=== PATIENT | female | born 1940 | race Caucasian/White ===

== ENCOUNTER 2017-07-15 07:02 | Day surgery (SDC) | payer MEDICARE, OTHER ==
[2017-07-14 12:13] VITALS: BMI 30.4
[2017-07-15 08:33] VITALS: BP 179/75; TEMP 97.7
--- NOTE | 2017-07-15 09:20 | RAD ---
LUMBAR SPINE MYELOGRAM: Date: 07/15/17 HISTORY: Lumbar radiculopathy, spondylosis. COMPARISON: Myelogram dated 02/07/15. FINDINGS/TECHNIQUE: The patient was brought to the fluoroscopy suite. All questions were answered. The patient's back was prepped and draped in the normal sterile fashion. Informed consent was obtained. Timeout was perform ed. 2 mL of buffered lidocaine was instilled into the superficial soft tissues for local anesthesia. Usin g a 22 gauge spinal needle, the thecal sac was accessed. 11 mL of Isovue-200M was instilled into the thecal sac. The patient tolerated the procedure well and without complication. IMPRESSION: Technically successful lumbar spine myelogram. POS: [facility]
--- NOTE | 2017-07-15 10:04 | CT ---
CT LUMBAR SPINE WITH CONTRAST: HISTORY: Radiculopathy. Right-sided pain. COMPARISON: CT myelogram 02/07/15. FINDINGS: The lung bases are clear. There are nonobstructing calculi within the right superior renal collectin g system. The left kidney is atrophic. Multiple right-sided renal cysts. Moderate atherosclerotic plaque of the aorta without aneurysmal dilatation. Calcified granulomas of the spleen are present. No retroperitoneal adenopathy. No acute fracture or malalignment of the lumbar spine. There is posterior spinal fusion hardware at L5-S1 without evidence of hardware complication. There is right hemidiskectomy changes at this level with adequate position of the spacer. Levels are as follows: T12-L1: Moderate hypertrophic facet changes. Circumferential disk bulge. The spinal canal is narro wed to approximately 1 cm. Moderate bilateral neural foraminal narrowing. L1-L2: Moderate circumferential disk bulge. There is narrowing of the spinal canal of approximately 6 mm. Hypertrophic facet changes. There is also ligamentum flavum hypertrophy. Moderate bilateral neural foraminal narrowing. L3-4: Mild circumferential disk bulge and degenerative disk space height loss. Advanced hypertrophi c facet changes. Mild ligamentum flavum hypertrophy. The spinal canal is not narrowed. There is mo derate to severe right and moderate to severe left neural foraminal narrowing. L4-5: There are laminectomy changes. Circumferential disk bulge. The spinal canal is not significa ntly narrowed. Hypertrophic facet changes cause moderate bilateral neural foraminal narrowing. L5-S1: Posterior disk-osteophyte complex on the left and right causes moderate bilateral neural fora elias narrowing. IMPRESSION: 1. Moderate to severe spondylosis as described above. No acute fracture or malalignment or signific ant listhesis. 2. Atrophic left kidney. 3. Right side renal calculi. POS: [facility]
[2017-07-15] MEDS ORDERED: Iopamidol-M 200 41% 20 ML VIAL ONE (16:30)
== END 2017-07-15 10:05 | disposition home or self-care (01) ==
LOC: RAD 07:02
PROVIDERS: ATTEND Neurological Surgery
PROC: B00B1ZZ Plain Radiography of Spinal Cord using Low Osmolar Contrast (ICD-10-PCS; principal; 2017-07-15)
DX: M54.16 Radiculopathy, lumbar region (principal); M47.896 Other spondylosis, lumbar region
CPT/HCPCS: 62304; 72132

== ENCOUNTER 2017-09-24 03:50 | Inpatient (IN) | payer MEDICARE, OTHER ==
[2017-09-24] MEDS ORDERED: Metoprolol Tartrate 5 MG/5 ML VIAL ONE (04:46)
[2017-09-24] MEDS ORDERED: Ondansetron HCl/PF 4 MG/2 ML Vial IVP PRN ×2 (06:38→07:31)
[2017-09-24] MEDS ORDERED: Ondansetron ODT 4 MG TAB SL PRN (06:38)
[2017-09-24] MEDS ORDERED: Sodium Chloride 0.9% 1,000 ML IV SCH (06:38)
[2017-09-24] MEDS ORDERED: Acetaminophen 325 MG TAB PO PRN (07:31)
[2017-09-24] MEDS ORDERED: Calcium Carbonate 500 MG ChewTAB PO PRN (07:31)
[2017-09-24] MEDS ORDERED: Benzonatate 100 MG CAP PO PRN (07:31)
[2017-09-24] MEDS ORDERED: Milk Of Magnesia 30 ML UDCUP PO PRN (07:31)
[2017-09-24] MEDS ORDERED: Senokot 8.6 MG TAB PO PRN (07:31)
[2017-09-24] MEDS ORDERED: Bisacodyl 5 MG TAB PO PRN ×2 (07:31)
[2017-09-24] MEDS ORDERED: hydrALAZINE 20 MG/ML VIAL SLOW IVP PRN (07:31)
[2017-09-24] MEDS ORDERED: Mag-Al 1200 mg/1200 mg/30 ML UDCUP PO PRN (07:31)
[2017-09-24] MEDS ORDERED: cloNIDine 0.1 MG TAB PO PRN (07:31)
[2017-09-24] MEDS ORDERED: Diabetic Tussin 200 MG/10 ML UDCUP PO PRN (07:31)
[2017-09-24] MEDS ORDERED: Dextrose 50% Abboject 50 ML SYRINGE SLOW IVP PRN (07:36)
[2017-09-24] MEDS ORDERED: Dextrose 5% in Water 1,000 ML IV PRN (07:36)
[2017-09-24] MEDS ORDERED: HumaLOG 300 UNITS/3 ML VIAL SC PRN ×2 (07:36)
[2017-09-24] MEDS ORDERED: Non-Formulary Item 1 EACH (Esomeprazole Magnesium [Nexium] 20 MG) PO PRN (07:40)
[2017-09-24] MEDS ORDERED: Triamcinolone 0.1% Cream 30 GM TUBE TOP PRN (07:40)
[2017-09-24 07:55] LABS: Troponin I 0.373 ng/mL (< 0.028)
[2017-09-24] MEDS ORDERED: Aspirin 325 MG TAB PO SCH ×2 (08:00→09:00)
[2017-09-24] MEDS: Gabapentin 300 MG CAP PO SCH ×3 (08:49→20:00)
[2017-09-24] MEDS: Famotidine 20 MG TAB PO SCH ×2 (08:49→19:59)
[2017-09-24] MEDS: TROSPIUM 20 MG TABLET PO SCH ×2 (08:49→22:21)
[2017-09-24] MEDS: Carvedilol 3.125 MG TAB PO SCH ×2 (08:49→16:42)
[2017-09-24] MEDS: Multivit, Therapeutic 1 TAB PO SCH (08:49)
[2017-09-24] MEDS: Fenofibrate 48 MG TAB PO SCH (08:49)
[2017-09-24] MEDS: Enoxaparin Sodium 100 MG/ML SYRINGE SC SCH ×2 (08:50→20:00)
[2017-09-24] MEDS: Alogliptin 25 MG TAB PO SCH (08:50)
[2017-09-24] MEDS: Glimepiride 4 MG TAB PO SCH (08:50)
[2017-09-24] MEDS: Sodium Chloride 0.9% 1,000 ML IV SCH ×2 (08:51→20:04)
[2017-09-24] MEDS ORDERED: Non-Formulary Item 1 EACH (Multivitamin [Multivitamins] 1 CAP) PO SCH (09:00)
[2017-09-24] MEDS ORDERED: Enoxaparin Sodium 40 MG/0.4 ML SYRINGE SC SCH ×2 (09:00)
[2017-09-24] MEDS ORDERED: Tolterodine Tartrate LA 4 MG CAP PO SCH (09:00)
[2017-09-24 09:18] LABS: Bilirubin Negative (Negative); Blood, Urine Negative (Negative); Clarity CLOUDY (Clear); Glucose, Urine (Dipstick) Negative (Negative); Leukocyte Small (Negative); Nitrite Positive (Negative); Protein, Urine (Dipstick) Negative (Neg-Trace); Specific Gravity, Urine 1.015 (1.002-1.036)
[2017-09-24 09:20] LABS: Bacteria/HPF 3+ HPF (None Seen); Hyaline Casts/LPF 0-3 HYALINE CAST LPF (0-3 Hyaline); RBC/HPF 0-3 HPF (0-3); Squamous Epithelial None Seen HPF (0-3); WBC/HPF 21-50 HPF (0-3)
--- NOTE | 2017-09-24 12:11 | HP ---
DATE OF ADMISSION: 09/24/2017 PRIMARY CARE PHYSICIAN: Jamal Doll M.D. at [facility]. CHIEF COMPLAINT: Chest pain. HISTORY OF PRESENTING ILLNESS: Ms. Blair is a very pleasant 77-year-old female with past medical history of hypertension, diabetes mellitus, dyslipidemia, and history of CVA with residual left-sided weakness, who presented to the emergency room in [place] [facility] with above-mentioned compla int. History is mainly obtained by the patient herself and electronic medical records have been revi ewed in detail. The patient reports that she does not have any cardiac history as far as she remembers. She was woke n up last night from sleep around 2:00 a.m. with a sharp pain which felt like an elephant sitting on her chest. This proceeded for about 30 minutes until she presented to the emergency room and was giv en medications for same. The pain did move across her chest, but she had no arm or jaw claudication or paraesthesias with that. She did get short of breath when walking to the room of her daughter to wake her up, but then she reports that she is always easily winded with walk. She denies any nausea or dizziness. She denies any other recent illnesses. She denies any orthopnea, PND or leg swelling. She normally takes 81 mg of aspirin on a daily basis. She does report that lately for the last 6 weeks or so, her blood pressure is very difficult to contr ol and has been running as high as systolic 200s. Normally, she is 140-160 for systolic blood pressu re. She was recently started on losartan by primary care physician in addition to the Norvasc that s he normally takes. Upon presentation to the emergency room in [place], she was hemodynamically stable, saturating 93% o n room air, heart rate 82 and blood pressure on presentation 163/65. She underwent general evaluatio n. Her EKG showed ST depression in leads V3, V4, V5 and V6. Chest x-ray was rather unremarkable. H er cardiac enzymes were checked and she had mild troponin elevation of 0.157 with mild elevation of B UN and creatinine as well. She was given one dose of therapeutic Lovenox at 1 mg/kg as well as nitro glycerin and aspirin and was transferred to our facility for further evaluation. In our emergency room, decision was made to admit her for possible unstable angina and non-ST elevati on MT. Her repeat troponin in our facility was bumped up from 0.157-0.270. She also received 1 dose of IV Lopressor in our emergency room. Currently, she is symptom free and is actually eager to go h ome. Her repeat troponin is bumped up again to 0.373. PAST MEDICAL HISTORY: 1. Hypertension. 2. Dyslipidemia. 3. Diabetes mellitus type 2. 4. Chronic bronchitis. 5. Chronic back pain. 6. Chronic dizziness. 7. History of cerebrovascular accident with residual left-sided weakness. 8. Chronic kidney disease stage 3. She follows up at [facility] Nephrology Department. PAST SURGICAL HISTORY: 1. Cataract surgery. 2. Multiple back surgeries. 3. Dilatation and curettage. 4. 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 ALLERGIES: Include TUSSIN. FAMILY HISTORY: Significant for multiple family members with myocardial infarction. Her father and both grandfathers have suffered massive heart attacks. Diabetes in her brother. SOCIAL HISTORY: She lives with the family. No history of drug, tobacco or alcohol abuse. CURRENT MEDICATIONS: Are as follows; Tylenol with codeine 30 mg p.o. b.i.d. p.r.n., aspirin 162 mg p .o. b.i.d., Detrol-LA 4 mg daily, Lasix 20 mg daily, gabapentin 600 t.i.d., glimepiride 8 mg daily, n abumetone 500 mg p.o. b.i.d., metformin 500 mg daily, Januvia 100 mg daily, amlodipine 10 mg daily, p otassium chloride 10 mEq daily, Nexium 20 mg as needed, TriCor 40 mg daily, triamcinolone cream as ne eded, Zyrtec as needed and losartan 50 mg daily. REVIEW OF SYSTEMS: The following complete review of systems was negative, unless otherwise mentioned in the HPI or below: Constitutional: Weight loss or gain, ability to conduct usual activities. Skin: Rash, itching. Eyes: Double vision, pain. ENT/Mouth: Nose bleeding, neck stiffness, pain, tenderness. Cardiovascular: Palpitations, dyspnea on exertion, orthopnea. Respiratory: Shortness of breath, wheezing, cough, hemoptysis, fever or night sweats. Gastrointestinal: Poor appetite, abdominal pain, heartburn, nausea, vomiting, constipation, or diarr hea. Genitourinary: Urgency, frequency, dysuria, nocturia. Musculoskeletal: Pain, swelling. Neurologic/Psychiatric: Anxiety, depression. Allergy/Immunologic: Skin rash, bleeding tendency. A 12-point review of systems is done and it is negative except those mentioned in the history and phy sical. LABORATORY DATA AND IMAGING DATA: Her CBC is rather unremarkable. Her PT, PTT and INR are unremarka ble. Serum chemistry shows BUN of 28 and creatinine of 1.80, which is up from her baseline about 4 y ears ago of 1.31. BNP is 119. Cardiac enzymes, the highest so far is 0.373. Her blood sugar is 120 . Urinalysis done just now shows positive nitrite, leukocyte esterase, wbc's 21-50 and +3 bacteria. Chest x-ray by my review has no evidence to suggest pleural effusion or pulmonary edema or infiltrat es. A 12-lead EKG was reviewed and EKG done in the emergency room outside shows ST depression in olman ds V3 through V6. Repeat EKG done in our emergency room shows normal sinus rhythm with frequent PVCs . PHYSICAL EXAMINATION: VITAL SIGNS: Most recent vital signs; temperature 97.8, pulse of 86, respirations 22, saturating 97% on room air, blood pressure 135/69. GENERAL: No acute distress, awake, alert, oriented x3. HEENT: Mucous membrane is moist and pink. No oropharyngeal exudate or erythema. Head is normocepha lic, atraumatic. Pupils are equal, reactive to light and accommodation. Extraocular movement intact . NECK: Supple without any lymphadenopathy, JVD or bruit. CHEST: Clear to auscultation without any wheezing, rales or rhonchi. CARDIOVASCULAR: Rhythm is regular without any murmurs, rubs or gallops. ABDOMEN: Soft, nontender, nondistended with positive bowel sounds, obese. EXTREMITIES: No cyanosis, clubbing, or edema. NEUROLOGIC: Examination is nonfocal. SKIN: Free of any rashes or bruises. Feel warm and dry to touch. PSYCHIATRIC: Normal affect. IMPRESSION AND PLAN: 1. Non-ST elevation myocardial infarction. Her symptoms are consistent with the same and ACS. At t his time, she will be continued on full dose of therapeutic Lovenox 1 mg/kg b.i.d. and low dose aspir in. She will be started on beta allison in the form of carvedilol and we will titrate the dosages. We will continue her ARB. We will get a transthoracic echocardiogram and request consultations from Cardiology as well. Check a lipid panel and continue TriCor as well. 2. Acute on chronic kidney disease, mild elevation in her creatinine from baseline, but the baseline is from 4 years ago. At this time we will rehydrate her with gentle IV fluids and monitor renal fun ction. Avoid any nephrotoxic medications. 3. Urinary tract infection. Urine will be sent for culture and we will start her on empiric IV anti biotics in the form of levofloxacin. At this time, no signs or symptoms to suggest sepsis. 4. Diabetes mellitus type 2, currently well controlled. We will start her on insulin sliding scale. Hold metformin to avoid any further renal injury. Restart home medications if the blood sugar francis ins stable. 5. History of hypertension. At this time, she will be continued on losartan and we will start her o n beta-blockers for cardioprotective effect. We will discontinue the amlodipine for now and titrate the carvedilol dose up if necessary to control her blood pressure. 6. History of cerebrovascular accident. 7. Code status: FULL CODE discussed with the patient. 8. Deep venous thrombosis and gastrointestinal prophylaxis on p.r.n. medications. DISPOSITION: Ms. Blair is currently being admitted to the hospital for non-ST elevation MT and li mahesh unstable angina. Further management will depend upon her clinical course, but estimated length of stay at this time is at least 2-3 midnights.
[2017-09-24] MEDS ORDERED: Communication Order-Pharmacy FS SCH (12:30)
--- NOTE | 2017-09-24 12:39 | CON ---
DATE OF CONSULTATION: 09/24/2017 REASON FOR CONSULTATION: Elevated troponin and unstable angina. HISTORY OF PRESENT ILLNESS: Ms. Blair is a very pleasant 77-year-old woman who does not have a ca rdiologist. She states she awoke from sleep with acute onset chest pain. There was a heaviness on h er chest. It lasted for an hour. She proceeded to the emergency room in [place] where her symptoms improved on medical therapy. She is currently chest pain free. She did have a trip planned to [place] this morning. 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 SOCIAL HISTORY: She quit all tobacco products in the . No alcohol use. HOME MEDICATIONS: Include Zyrtec, aspirin, Detrol, glipizide, Norvasc, TriCor, metformin, Lasix, thomas apentin, Januvia, and potassium.. REVIEW OF SYSTEMS: Ten-point review of systems is reviewed and as above, otherwise negative. PHYSICAL EXAMINATION: VITAL SIGNS: Blood pressure 135/69, pulse 86, temperature 97.8. GENERAL: Patient is a pleasant female who is in no acute distress. The patient appears her stated a ge. NEUROLOGIC: The patient is alert and oriented times 3 with no focal neurologic deficits. HEENT: Sclerae without icterus. Mouth has moist mucous membranes with normal pallor. NECK: No JVD. Carotid upstroke brisk. No bruits bilaterally. LUNGS: Clear to auscultation with unlabored respirations. BACK: No scoliosis or kyphosis. CARDIAC: Regular rate and rhythm with normal S1 and S2. No S3 or S4 noted. No significant rubs, murmurs, thrills, or gallops noted throughout the precordium. PMI is not displaced. There is no parasternal heave. ABDOMEN: Soft, nontender, nondistended. No peritoneal signs present. No hepatosplenomegaly. No abnormal striae. EXTREMITIES: 2+ femoral and 2+ dorsalis pedis pulses. No cyanosis, clubbing, or edema. SKIN: No gross abnormalities. PERTINENT LABS: Peak troponin 0.373. BNP of 119. EKG normal sinus rhythm, nonspecific ST-T wave ch anges. IMPRESSION: 1. Unstable angina. 2. Diabetes mellitus. 3. Hypertension. 4. Hyperlipidemia. RECOMMENDATIONS: Ms. Blair has multiple risks for underlying coronary disease. Her symptoms sugg est unstable angina. Her EKG is nonspecific. We would recommend coronary angiography plus PCI. I d iscussed the procedure in full detail with Ms. Blair risks of the procedure include but are not li mited. I discussed the procedure in full detail with the patient. The risks of the procedure were a lso discussed. The risks of the procedure include but are not limited to the following: , stro ke, DC, need for emergency surgery, loss of limb, bleeding, and infection, as well as a reaction to t he dye causing kidney failure and needing long-term dialysis. I also discussed the risks of PCI to i nclude all of the above including coronary dissection and perforation in addition to acute stent thro mbosis and restenosis. All questions about the procedure were answered. Given the above, the patien alin agreed to proceed with coronary angiography and possible PCI. Also discussed drug-coated versus no ndrug stent placement. She does receive back injections regularly. We will proceed with a bare-meta l stent if needed. Further recommendations pending the above.
[2017-09-24] MEDS ORDERED: Aspirin 81 mg Enteric Coated Tablet ONE (15:07)
[2017-09-24] MEDS: Aspirin 81 mg Enteric Coated Tablet PO SCH (15:10)
[2017-09-24] MEDS: Nitroglycerin 0.4 MG TAB (25 Tab Bottle) SL PRN ×2 (19:54→20:01)
[2017-09-25] MEDS: Nitroglycerin 0.4 MG TAB (25 Tab Bottle) SL PRN ×5 (02:02→12:59)
[2017-09-25 04:39] LABS: %Neutrophils 67.7 % (42.0-75.0); Hemoglobin 11.8 g/dL (12.0-16.0); Mean Corpuscular HGB CONC 34.6 g/dL (32.0-36.0); Mean Corpuscular Hemoglobin 31.6 pg (27.0-31.0); Mean Corpuscular Volume 91.4 fL (78.0-98.0); Mean Platelet Volume 7.6 fL (7.4-10.4); Platelet Count 222 thou/uL (130-400); RBC Distribution Width 11.7 % (11.5-14.5); Red Blood Cell (RBC) Count 3.73 mill/uL (4.20-5.40); White Blood Cell (WBC) Count 8.2 thou/uL (4.8-10.8)
[2017-09-25 04:40] LABS: #Eosinphils 0.4 thou/uL (0.0-0.7); #Lymphocytes 1.5 thou/uL (1.20-3.40); #Monocytes 0.7 thou/uL (0.11-0.59); #Neutrophils 5.6 thou/uL (1.40-6.50); %Basophils 0.6 % (0.0-1.0); %Eosinophils 4.3 % (0.0-10.0); %Lymphocytes 18.5 % (21.0-51.0); %Monocytes 8.9 % (0.0-10.0)
[2017-09-25 05:01] LABS: Anion Gap 13 mmol/L (10-20); BUN (Urea Nitrogen) 23 mg/dL (9.8-20.1); Calc. Creatinine Clearance 49 mL/min (70-130); Calcium 8.9 mg/dL (7.8-10.44); Carbon Dioxide 22 mmol/L (23-31); Chloride 107 mmol/L (98-107); Estimated GFR-MDRD 40; Glucose 145 mg/dL (83-110); Sodium 138 mmol/L (136-145)
[2017-09-25] MEDS: Enoxaparin Sodium 100 MG/ML SYRINGE SC SCH ×2 (08:19→22:27)
[2017-09-25] MEDS: Carvedilol 3.125 MG TAB PO SCH (08:20)
[2017-09-25] MEDS: Gabapentin 300 MG CAP PO SCH ×3 (08:20→22:28)
[2017-09-25] MEDS: Famotidine 20 MG TAB PO SCH ×2 (08:20→22:27)
[2017-09-25] MEDS: Multivit, Therapeutic 1 TAB PO SCH (08:20)
[2017-09-25] MEDS: Losartan 25 MG TAB PO SCH (08:20)
[2017-09-25] MEDS: Glimepiride 4 MG TAB PO SCH (08:20)
[2017-09-25] MEDS: Alogliptin 25 MG TAB PO SCH (08:20)
[2017-09-25] MEDS: Aspirin 81 mg Enteric Coated Tablet PO SCH (08:20)
[2017-09-25] MEDS: TROSPIUM 20 MG TABLET PO SCH ×2 (08:21→22:28)
[2017-09-25] MEDS: Fenofibrate 48 MG TAB PO SCH (08:36)
[2017-09-25] MEDS ORDERED: Carvedilol 6.25 MG TAB PO SCH (09:30)
[2017-09-25] MEDS ORDERED: Amoxicillin/Potassium Clav 875 MG TAB PO SCH ×2 (10:30→10:45)
[2017-09-25] MEDS ORDERED: Nitroglycerin 2% Ointment 1 INCH/1 GM Packet ONE (10:48)
[2017-09-25] MEDS: Sodium Chloride 0.9% 1,000 ML IV SCH (11:06)
--- NOTE | 2017-09-25 11:21 | PDOC.CTH ---
Cardiology Progress Note - Subjective Pt with two biedf episodes of CP last night that resolved with nitro. No nitro paste placed at this time. Currently doing well. Last episode was at 12:30am - Objective Vital Signs Temp Pulse Resp BP Pulse Ox 09/25/17 08:12 96 09/25/17 08:00 98.4 F 86 21 H 97 09/25/17 07:20 98.4 F 86 21 H 154/68 H 98 09/25/17 04:00 76 18 169/75 H 98 09/25/17 02:15 98.2 F 85 20 155/73 H 94 L Weight 197 lb 12.074 oz 09/24/17 09/25/17 09/26/17 06:59 06:59 06:59 Intake Total 1355 Output Total 1450 500 Balance -95 -500 - Physical Examination General/Neuro: alert & oriented x3, NAD Neck: no JVD present Lungs: CTA Heart: PMI normal, RRR Abdomen: NT/ND, soft Extremities: + femoral B - Labs Result Diagrams: 09/25/17 03:42 09/25/17 03:42 Troponin/CKMB Troponin I 0.373 ng/mL (< 0.028) H* 09/24/17 06:54 - Assessment/Plan 1. [place] 2. HTN 3. Hyperlipidemia Add nitro paste. Last episode of pain was 12 hours ago. Pt also had breakfast. She is asymptomatic. Plan on angio in AM
--- NOTE | 2017-09-25 11:35 | ULT ---
BILATERAL LOWER EXTREMITY VENOUS ULTRASOUND: HISTORY: Right lower extremity edema and shortness of breath. COMPARISON: 07/06/17. TECHNIQUE: Multiplanar, castillo scale, and color Doppler images were obtained in a bilateral lower extremity venous ultrasound. Spectral analysis of the Doppler waveforms was performed. FINDINGS: The bilateral common femoral veins, profunda femoral veins, superficial femoral veins, and popliteal veins are normal in appearance without visible thrombus. These vessels demonstrate normal compressio n, flow, and augmentation. The posterior tibial veins and greater saphenous veins are also patent. IMPRESSION: No evidence of deep vein thrombosis. POS: [facility]
[2017-09-25 11:37] LABS: CKMB 2.1 ng/mL (0-6.6); Troponin I 0.245 ng/mL (< 0.028)
[2017-09-25] MEDS ORDERED: Nitroglycerin 2% Ointment 1 INCH/1 GM Packet TOP SCH (12:00)
[2017-09-25] MEDS: ALPRAZolam 0.25 MG TAB PO PRN (12:38)
[2017-09-25] MEDS ORDERED: Lidocaine 1% (PF) 30 ML VIAL ONE (13:06)
[2017-09-25] MEDS ORDERED: Ondansetron HCl/PF 4 MG/2 ML Vial ONE (13:32)
[2017-09-25] MEDS ORDERED: Nitroglycerin 50 MG/250 ML BOT 250 ML ONE (13:32)
[2017-09-25] MEDS ORDERED: Furosemide 40 MG/4 ML VIAL ONE ×2 (13:40→15:15)
[2017-09-25] MEDS ORDERED: Metoprolol Tartrate 5 MG/5 ML VIAL ONE (13:41)
--- NOTE | 2017-09-25 14:11 | PRG ---
DATE OF SERVICE: 09/25/2017 Ms. Blair had acute onset severe chest pain today. Blood pressure was also elevated. She was giv en 2 sublingual nitroglycerin and hydralazine. The pain continued. She did have associated diaphore sis. Given that she continues to have intermittent pain despite medical therapy, we would proceed with cor onary angiography plus PCI. Consent has already been obtained. Her creatinine is 1.3 and is down fr om 1.8. Further recommendations pending the above.
--- NOTE | 2017-09-25 14:45 | PDOC.PN ---
- Subjective Encounter Start Date: 09/25/17 Encounter Start Time: 14:43 Subjective: had 3 episodes of CP last night.slighty SOB today - Objective MAR Reviewed: Yes Vital Signs & Weight: Vital Signs (12 hours) Temp Pulse Pulse Pulse Resp BP BP 09/25/17 14:00 98.4 F 09/25/17 13:06 187/83 H 09/25/17 12:03 185/77 H 09/25/17 11:24 97.3 F L 93 20 09/25/17 11:15 97.3 F L 93 20 09/25/17 10:35 84 103 H 126/87 09/25/17 08:12 09/25/17 08:00 98.4 F 86 21 H 09/25/17 07:20 98.4 F 86 21 H 09/25/17 04:00 76 18 BP Pulse Ox Pulse Ox Pulse Ox 09/25/17 14:00 09/25/17 13:06 09/25/17 12:03 09/25/17 11:24 188/78 H 95 09/25/17 11:15 188/78 H 95 09/25/17 10:35 98 98 09/25/17 08:12 96 09/25/17 08:00 97 09/25/17 07:20 154/68 H 98 09/25/17 04:00 169/75 H 98 Weight Weight 197 lb 12.074 oz I&O: 09/24/17 09/25/17 09/26/17 06:59 06:59 06:59 Intake Total 1355 Output Total 1450 500 Balance -95 -500 Result Diagrams: 09/25/17 03:42 09/25/17 03:42 Additional Labs: Accuchecks 09/25/17 09/25/17 09/24/17 11:12 05:24 20:17 POC Glucose 182 H 136 H 183 H 09/24/17 16:30 POC Glucose 126 H Laboratory Tests 09/24/17 09/24/17 09/24/17 01:45 01:45 04:33 Creatinine 1.80 H Troponin I 0.157 H 0.270 H 09/24/17 09/25/17 09/25/17 06:54 03:42 11:03 Creatinine 1.30 H Troponin I 0.373 H* 0.245 H labs reviewed Radiology Reviewed by me: Yes (ECHO-NL EF.LVH) Phys Exam - Physical Examination Constitutional: NAD HEENT: PERRLA, moist MMs, sclera anicteric, oral pharynx no lesions Neck: no nodes, no JVD, supple, full ROM Respiratory: no wheezing, no rales, no rhonchi, clear to auscultation bilateral Cardiovascular: RRR, no significant murmur Gastrointestinal: soft, non-tender, no distention, positive bowel sounds Musculoskeletal: pulses present, edema present (RLE) Neurological: non-focal, normal sensation, moves all 4 limbs Psychiatric: normal affect, A&O x 3 Dx/Plan (1) Unstable angina Status: Acute (2) Uncontrolled hypertension Code(s): I10 - ESSENTIAL (PRIMARY) HYPERTENSION Status: Acute (3) Cellulitis of foot Code(s): L03.119 - CELLULITIS OF UNSPECIFIED PART OF LIMB Status: Acute (4) UTI (urinary tract infection) Status: Acute (5) Acute kidney injury superimposed on CKD Code(s): N17.9 - ACUTE KIDNEY FAILURE, UNSPECIFIED; N18.9 - CHRONIC KIDNEY DISEASE, UNSPECIFIED Status: Acute (6) DM2 (diabetes mellitus, type 2) Status: Chronic (7) HTN (hypertension) Code(s): I10 - ESSENTIAL (PRIMARY) HYPERTENSION Status: Chronic (8) HLD (hyperlipidemia) Code(s): E78.5 - HYPERLIPIDEMIA, UNSPECIFIED Status: Chronic (9) H/O: CVA (cerebrovascular accident) Code(s): Z86.73 - PRSNL HX OF TIA (TIA), AND CEREB INFRC W/O RESID DEFICITS Status: Chronic - Plan continue antibiotics, PT/OT, respiratory therapy, out of bed/ambulate, DVT proph w/SCDs pt had more chest pain,anxiety & high BP shortly after exam.EKG done -: Pt taken to supervisor dental laboratory by cardiology but could not lie flat -: suspect anxiety and hypertension induced symptoms.repeat troponin lower -: cont BID lovenox.incarese Coreg.cont Losartan.add Nitro paste -: To CCU per cardiology on Nitro drip.appreciate input * .Doppler Us checked for LR swelling-no DVT. * add Augmentin for small area of cellulitis on R ant foot. * am labs. * add prn xanax * Review of Systems - Review of Systems Constitutional: malaise. negative: fever, chills, sweats, weakness, other Respiratory: Shortness of Breath. negative: Cough, Dry, Hemoptysis, SOB with Excertion, Pleuritic Pain, Sputum, Wheezing Cardiovascular: chest pain. negative: palpitations, orthopnea, paroxysmal nocturnal dyspnea, edema, light headedness, other Gastrointestinal: negative: Nausea, Vomiting, Abdominal Pain, Diarrhea, Constipation, Melena, Hematochezia, Other Genitourinary: negative: Dysuria, Frequency, Incontinence, Hematuria, Retention , Other Musculoskeletal: negative: Neck Pain, Shoulder Pain, Arm Pain, Back Pain, Hand Pain, Leg Pain, Foot Pain, Other Skin: negative: Rash, Lesions, Inder, Bruising, Other Neurological: negative: Weakness, Numbness, Incoordination, Change in Speech, Confusion, Seizures, Other - Medications/Allergies Allergies/Adverse Reactions: Allergies Allergy/AdvReac Type Severity Reaction Status Date / Time chlorpheniramine polistirex Allergy Mild Verified 09/24/17 06:21 [From Tussionex] cephalexin [From Keflex] Allergy Verified 09/24/17 06:21 hydrocodone polistirex Allergy Verified 09/24/17 06:21 [From Tussionex] propofol AdvReac Nausea Verified 09/24/17 06:21 tussin AdvReac Emesis Uncoded 09/24/17 06:21 Medications: Current Medications Acetaminophen (Tylenol) 650 mg PO Q4H PRN PRN Reason: Headache/Fever or Pain Last Admin: 09/24/17 20:18 Dose: 650 mg Al Hydroxide/Mg Hydroxide (Maalox) 30 ml PO Q6H PRN PRN Reason: Heartburn or Indigestion Alogliptin Benzoate (Alogliptin) 25 mg PO DAILY [facility] Last Admin: 09/25/17 08:20 Dose: 25 mg Alprazolam (Xanax) 0.25 mg PO BIDPRN PRN PRN Reason: Anxiety Amoxicillin/Clavulanate Potassium (Augmentin) 875 mg PO Q12HR [facility] Aspirin (Ecotrin) 81 mg PO DAILY [facility] Last Admin: 09/25/17 08:20 Dose: 81 mg Benzonatate (Tessalon) 100 mg PO Q4H PRN PRN Reason: Cough Bisacodyl (Dulcolax) 10 mg PO DAILYPRN PRN PRN Reason: Constipation Last Admin: 09/25/17 08:20 Dose: 10 mg Calcium Carbonate (Tums) 1,000 mg PO Q4H PRN PRN Reason: Heartburn or Indigestion Carvedilol (Coreg) 6.25 mg PO BID[facility] Clonidine (Catapres) 0.1 mg PO Q4H PRN PRN Reason: Systolic BP > 160 Last Admin: 09/25/17 12:03 Dose: 0.1 mg Dextrose/Water (Dextrose 50%) 25 gm SLOW IVP PRN PRN PRN Reason: Hypoglycemia Diazepam (Valium) 5 mg IVP [facility] Stop: 09/26/17 20:00 Enoxaparin Sodium (Lovenox) 90 mg SC 09,2100 [facility] Stop: 09/25/17 21:01 Last Admin: 09/25/17 08:19 Dose: 90 mg Famotidine (Pepcid) 20 mg PO BID [facility] Last Admin: 09/25/17 08:20 Dose: 20 mg Fenofibrate (Tricor) 48 mg PO DAILY [facility] Last Admin: 09/25/17 08:36 Dose: 48 mg Gabapentin (Neurontin) 600 mg PO TID [facility] Last Admin: 09/25/17 08:20 Dose: 600 mg Glimepiride (Amaryl) 8 mg PO DAILY [facility] Last Admin: 09/25/17 08:20 Dose: 8 mg Glucagon (Glucagon) 1 mg IM PRN PRN PRN Reason: Hypoglycemia Guaifenesin (Robitussin Sf) 200 mg PO Q4H PRN PRN Reason: Cough Hydralazine HCl (Apresoline) 10 mg SLOW IVP Q4H PRN PRN Reason: Systolic BP > 170 Last Admin: 09/25/17 13:06 Dose: 10 mg Dextrose/Water (D5w) 1,000 mls @ 0 mls/hr IV .Q0M PRN; As Directed PRN Reason: Hypoglycemia Levofloxacin 500 mg/ Device 100 mls @ 100 mls/hr IVPB Q24HR [facility] Last Admin: 09/25/17 11:56 Dose: 100 mls Sodium Chloride (Normal Saline 0.9%) 1,000 mls @ 100 mls/hr IV .Q10H [facility] Insulin Human Lispro (Humalog) 0 units SC .MODERATE SLIDING SC PRN PRN Reason: Moderate Correctional Scale Insulin Human Lispro (Humalog) 0 units SC .BEDTIME SLIDING SC PRN PRN Reason: Bedtime Correctional Scale Losartan Potassium (Cozaar) 50 mg PO DAILY [facility] Last Admin: 09/25/17 08:20 Dose: 50 mg Magnesium Hydroxide (Milk Of Magnesium) 30 ml PO DAILYPRN PRN PRN Reason: Constipation Miscellaneous Information (Communication Order-Pharmacy) 0 each FS ONE [facility] Stop: 09/26/17 12:31 Multivitamins (Theragran) 1 tab PO DAILY [facility] Last Admin: 09/25/17 08:20 Dose: 1 tab Nitroglycerin (Nitrostat) 0.4 mg SL Q5MIN PRN PRN Reason: Chest Pain Last Admin: 09/25/17 12:59 Dose: 0.4 mg Nitroglycerin (Nitro-Bid 2% Ointment) 1 inch TOP Q6HR [facility] Last Admin: 09/25/17 11:05 Dose: Not Given Ondansetron HCl (Zofran) 4 mg IVP Q6H PRN PRN Reason: Nausea/Vomiting Pantoprazole Sodium (Protonix) 40 mg PO DAILYPRN PRN PRN Reason: INDIGESTION Promethazine HCl (Phenergan) 12.5 mg PO [facility] Stop: 09/26/17 20:00 Senna (Senokot) 2 tab PO HSPRN PRN PRN Reason: Constipation Sodium Chloride (Flush - Normal Saline) 10 ml IVF Q12HR [facility] Last Admin: 09/25/17 08:21 Dose: Not Given Sodium Chloride (Flush - Normal Saline) 10 ml IVF PRN PRN PRN Reason: Saline Flush Triamcinolone Acetonide (Kenalog 0.1% Cream) 0 gm TOP BIDPRN PRN PRN Reason: leg pain Trospium (Trospium) 20 mg PO BID [facility] Last Admin: 09/25/17 08:21 Dose: 20 mg
--- NOTE | 2017-09-25 15:13 | PRG ---
DATE OF SERVICE: 09/25/2017 SUBJECTIVE: Ms. Blair was seen and evaluated in the warehouse laborer. She could not lie flat. She ate a t noon. She did have crackles present. Her blood pressure was 200-210 systolic. She was markedly a nxious. When she sat up, she was better. Her troponin appears to be down trending. She was not having chest pain, but mainly shortness of katty ath likely due to anxiety and marked hypertension. She was placed on IV nitroglycerin. Given that s he was not having any current symptoms, I would recommend she be transferred to the ICU for stabiliza tion. At this point, we would require intubation to proceed and given that she is not currently acut kumar having chest pressure or angina, we would recommend stabilization.
[2017-09-25] MEDS ORDERED: Furosemide 20 MG/2 ML VIAL SLOW IVP SCH (15:15)
[2017-09-25] MEDS ORDERED: Nitroglycerin 50 MG/250 ML BOT 250 ML IVPB PRN (15:16)
[2017-09-25] MEDS: Carvedilol 6.25 MG TAB PO SCH (16:27)
--- NOTE | 2017-09-25 17:33 | RAD ---
PORTABLE CHEST 1 VIEW: Date: 09/25/17 Time: 1606 hours HISTORY: Pulmonary edema. FINDINGS: Comparison made with exam from previous day. FINDINGS/IMPRESSION: The heart size is borderline. There is pulmonary vascular congestion. No lobar consolidation, pneumot horaces, or large effusions are seen. Postop changes are again noted in the lower cervical spine. Old , healed fracture of the left clavicle is redemonstrated. POS: [facility]
--- NOTE | 2017-09-25 19:30 | CON ---
DATE OF CONSULTATION: 09/25/2017 SERVICE: Pulmonary Medicine. REASON FOR CONSULTATION: ICU patient. HISTORY OF PRESENT ILLNESS: The patient is a 77-year-old white female with past medical history sign ificant for type 2 diabetes mellitus, who presented to the hospital with some chest discomfort and el evated blood pressures. Ultimately cardiac evaluation was performed. Echocardiogram demonstrated no rmal ejection fraction, and no significant wall abnormalities. That being said, she started having s ome ongoing chest discomfort in the ICU. This was consistent with unstable angina. She brought down for cardiac catheterization, but the procedure was aborted. She started having nausea, vomiting, an d dry heaving. She could not tolerate lying flat on her back. Her blood pressures went up into the 200s. She was started on nitro drip. The procedure was aborted and she was tucked in the ICU. She was given a dose of Lasix. Currently, the patient's nausea and retching have resolved. She is not h aving any current chest discomfort. She denies any fevers, chills, nausea, vomiting or shortness of breath. She is currently on BiPAP, breathing comfortably. Prior to this presentation, she has not h ad any fevers or chills. PAST MEDICAL HISTORY: 1. Type 2 diabetes mellitus. 2. Hypertension. 3. Dyslipidemia. 4. Chronic back pain. 5. History of cerebrovascular accident with residual left-sided weakness. 6. Chronic kidney disease, stage 3. PAST SURGICAL HISTORY: 1. Back surgeries, multiple. 2. D&C. 3. Cataract surgeries. 4. Left foot excision of Headley's neuroma. FAMILY HISTORY: Noncontributory. SOCIAL HISTORY: Negative for alcohol, tobacco or illicit drug use. She has no exposure to chemicals , dusts, asbestos or tuberculosis. ALLERGIES: TUSSIN. MEDICATIONS: List of her inpatient medications were reviewed. No specific updates were made at this time. REVIEW OF SYSTEMS: General, head, ears, eyes, nose, throat, cardiovascular, respiratory, GI, , mus culoskeletal, neurologic, and skin is negative except as mentioned in the HPI. PHYSICAL EXAMINATION: VITAL SIGNS: Afebrile, pulse 85, blood pressure 116/58, respirations 25, saturation 96% on 40% FIO2 and a PEEP of 5. GENERAL: The patient is awake, alert, no apparent distress. HEENT: Normocephalic, atraumatic. Sclerae are white, conjunctivae pink. Oral mucosa is moist witho ut lesions. LUNGS: Decent air entry. Dependent crackles are present. There is not a prolonged expiratory phase or wheezing. HEART: Normal rate, regular. ABDOMEN: Soft, nontender, nondistended. Bowel sounds are positive. MUSCULOSKELETAL: No cyanosis or clubbing. There is 2+ pitting in the right lower extremity and 1+ p itting in the left lower extremity. GENITOURINARY: Mcelroy catheter in place. NEUROLOGIC: Grossly nonfocal. LABORATORY DATA: WBC 8.2, hemoglobin 11.8, platelets 222,000. Creatinine 1.30, this is slightly abo ve baseline. Basic metabolic profile is otherwise unremarkable. Troponin 0.373, which is now down t rending. Nitrites are positive and there are white blood cells on the urinalysis. Outside of that, it is essentially unremarkable. E. coli is growing in the urine. IMAGIN. Echocardiogram demonstrates normal ejection fraction. Left atrium is moderately dilated. Modera te mitral regurgitation is also present. 2. Ultrasound of the right lower extremity demonstrates no evidence of DVT. ASSESSMENT: 1. Acute hypoxic respiratory failure. 2. Non-ST elevation myocardial infarction. 3. 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 4. Hypertensive emergency. DISCUSSION AND PLAN: The patient is going to be placed in the ICU. We will initiate BiPAP and wean oxygen and PEEP as tolerated. Once she is on minimal settings, we will get her back off this unit. She may need to go down for cardiac catheterization. If we do this in the near future, she will need to go on BiPAP. She has already received a dose of Lasix and is making good urine at this point. W e will try to keep her systolic blood pressures under 160 mmHg. Pulmonary Critical Care will continu e to follow while she remains in this location. CRITICAL CARE TIME: 30 minutes in titrating BiPAP at bedside.
[2017-09-25] MEDS: Amoxicillin/Potassium Clav 875 MG TAB PO SCH (22:27)
[2017-09-26 05:34] LABS: #Eosinphils 0.1 thou/uL (0.0-0.7); #Lymphocytes 1.7 thou/uL (1.20-3.40); %Basophils 0.3 % (0.0-1.0); %Eosinophils 1.6 % (0.0-10.0); %Lymphocytes 19.1 % (21.0-51.0); %Monocytes 11.1 % (0.0-10.0); %Neutrophils 67.9 % (42.0-75.0); Hemoglobin 10.9 g/dL (12.0-16.0); Mean Corpuscular HGB CONC 34.4 g/dL (32.0-36.0); Mean Corpuscular Hemoglobin 31.5 pg (27.0-31.0); Mean Corpuscular Volume 91.6 fL (78.0-98.0); Platelet Count 207 thou/uL (130-400); RBC Distribution Width 11.6 % (11.5-14.5); Red Blood Cell (RBC) Count 3.46 mill/uL (4.20-5.40); White Blood Cell (WBC) Count 8.9 thou/uL (4.8-10.8)
[2017-09-26] MEDS: Carvedilol 6.25 MG TAB PO SCH ×2 (05:51→16:32)
[2017-09-26] MEDS: Sodium Chloride 0.9% 1,000 ML IV SCH ×2 (05:53→16:41)
[2017-09-26] MEDS ORDERED: Promethazine 25 MG TAB PO SCH (06:00)
[2017-09-26] MEDS ORDERED: Diazepam 10 MG/2 ML SYRINGE IVP SCH (06:00)
[2017-09-26 06:07] LABS: Anion Gap 14 mmol/L (10-20); BUN (Urea Nitrogen) 21 mg/dL (9.8-20.1); Calc. Creatinine Clearance 46 mL/min (70-130); Calcium 9.1 mg/dL (7.8-10.44); Carbon Dioxide 24 mmol/L (23-31); Chloride 105 mmol/L (98-107); Estimated GFR-MDRD 36; Glucose 106 mg/dL (83-110); Potassium 4.1 mmol/L (3.5-5.1); Sodium 139 mmol/L (136-145)
--- NOTE | 2017-09-26 07:51 | PRG ---
DATE OF SERVICE: 09/26/2017 SERVICE: Pulmonary Medicine. INTERVAL HISTORY: The patient is doing great from a respiratory standpoint. She is breathing comfor tably. She did not use her BiPAP last night. That being said, she still did have a hard time lying flat. She indicates that she has a trigger point in her back. Whenever she lies on it, the back alessandro n spreads across her entire back. Otherwise, there has been no interval change to her condition. PHYSICAL EXAMINATION: VITAL SIGNS: Afebrile, pulse 85, blood pressure 149/75, respirations 15, saturation 98% on 2 liters nasal cannula. GENERAL: The patient is awake, alert, in no apparent distress. LUNGS: Decent air entry. There are crackles present. No prolonged expiratory phase or wheezing is appreciated. HEART: Normal rate, regular. ABDOMEN: Soft, nontender, nondistended. Bowel sounds are positive. MUSCULOSKELETAL: No cyanosis or clubbing. There is a trace pitting in the left lower extremity. Th ere is 1+ pitting in the right lower extremity, but both of these are improved compared to yesterday. LABORATORY DATA: WBC 8.9, hemoglobin 10.9, platelets 207,000. Creatinine 1.40. Basic metabolic pro file is otherwise unremarkable. BUN 21. IMAGING: Chest x-ray demonstrates left-sided pleural effusion is present. There is interstitial bhupinder ma. Overall, this is slightly improved compared to yesterday. ASSESSMENT: 1. Acute hypoxic respiratory failure. 2. Non-ST elevation myocardial infarction. 3. 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 4. Hypertensive emergency. DISCUSSION AND PLAN: The patient is doing absolutely wonderful from a respiratory standpoint. That being said, it is not clear to me whether or not she is going to be able to tolerate lying down for a ny period of time. We will do a trial of lying down for 30 minutes. If she can do this, we will con fire department marine engineer moving to the crime laboratory analyst without BiPAP. If she cannot, it would probably be best to put her on B iPAP and maybe even give her a little anxiolytic beforehand. Pulmonary Critical Care will continue t o follow along while she remains in this location. She is much closer to euvolemia. We will continu e our diuresis, but give her, her next dose tomorrow morning.
[2017-09-26] MEDS: Alogliptin 25 MG TAB PO SCH (08:00)
--- NOTE | 2017-09-26 08:19 | RAD ---
PORTABLE SEMIUPRIGHT FRONTAL CHEST RADIOGRAPH: Date: 09/26/17 COMPARISON: 09/25/17. HISTORY: Pulmonary edema. FINDINGS: Incompletely imaged cervical spine hardware is present. There is pulmonary vascular congestion and di ffuse interstitial opacity, stable. In both lung bases, there is hazy air space disease and probable small bilateral pleural effusions, left greater than right. There has been no significant interval ch gina. IMPRESSION: Findings suggesting stable pulmonary edema. Infection cannot be excluded. Follow-up to resolution adv ised. POS: [facility]
[2017-09-26] MEDS ORDERED: Lorazepam 2 MG/ML VIAL ONE (08:35)
[2017-09-26] MEDS: Gabapentin 300 MG CAP PO SCH ×3 (09:00→21:45)
[2017-09-26] MEDS: Aspirin 81 mg Enteric Coated Tablet PO SCH (09:00)
[2017-09-26] MEDS: Glimepiride 4 MG TAB PO SCH (09:00)
[2017-09-26] MEDS: Fenofibrate 48 MG TAB PO SCH (09:00)
[2017-09-26] MEDS: Losartan 25 MG TAB PO SCH (09:00)
[2017-09-26] MEDS: Amoxicillin/Potassium Clav 875 MG TAB PO SCH ×2 (09:00→21:45)
[2017-09-26] MEDS: TROSPIUM 20 MG TABLET PO SCH ×2 (09:00→21:51)
[2017-09-26] MEDS ORDERED: Heparin 10,000 UNITS/1 ML VIAL ONE (09:09)
[2017-09-26] MEDS ORDERED: Nitroglycerin 100MG/250ML BOT 250 ML ONE (09:09)
[2017-09-26] MEDS ORDERED: Lidocaine 1% (PF) 30 ML VIAL ONE (09:09)
[2017-09-26] MEDS ORDERED: Verapamil 5 MG/2 ML VIAL ONE (09:09)
[2017-09-26] MEDS ORDERED: Lorazepam 2 MG/ML VIAL SLOW IVP SCH (09:30)
[2017-09-26] MEDS ORDERED: Nitroglycerin 0.4 MG TAB (25 Tab Bottle) SL PRN (09:51)
[2017-09-26] MEDS ORDERED: Sodium Chloride 0.9% 1,000 ML IV SCH (10:00)
[2017-09-26] MEDS ORDERED: Sodium Chloride 0.9% 200 ML IV SCH (10:00)
[2017-09-26] MEDS ORDERED: Communication Order-Pharmacy FS ONE (12:35)
[2017-09-26] MEDS ORDERED: Iopamidol 370 76% 100 ML VIAL ONE (13:31)
[2017-09-26] MEDS: Multivit, Therapeutic 1 TAB PO SCH (13:32)
--- NOTE | 2017-09-26 13:58 | CON ---
DATE OF CONSULTATION: 09/26/2017 REQUESTING PHYSICIAN: Dr. Vinson. PRIMARY CARE PHYSICIAN: Dr. Jamal Doll. CHIEF COMPLAINT: Chest pain. HISTORY OF PRESENT ILLNESS: The patient is a 77-year-old woman with cerebrovascular disease, who awo ke the night of the with crushing chest pain. She presented to the emergency room and she ruled in for myocardial infarction by enzymes. She had no associated ST elevation. She was started on be ta-blockers and full anticoagulation with Lovenox. She had more chest pain on the and the plan was to take her to the gold leaf laborer, but upon arrival in the gold leaf laborer, she was markedly hypertensive and unable to lie flat, because of shortness of breath. She was gently diuresed. Her blood pressure bro ught under better control in the ICU and taken to the gold leaf laborer this morning where severe three-vessel coronary disease with normal LV systolic function was demonstrated. PAST MEDICAL HISTORY: Significant for cerebrovascular disease having had a right hemispheric stroke with some residual left-sided weakness. Multiple neck and back surgeries with residual neurologic de ficits. She has undergone a right carotid endarterectomy following her right hemispheric stroke and is followed with a modest residual left-sided carotid disease. She has diabetes and her hypertension has recently become more difficult to control. HOME MEDICATIONS: Listed as Norvasc 10 mg a day, Lasix 20 mg a day, potassium 10 mEq a day, fenofibr ate 48 mg a day, aspirin 160 mg a day, Nexium 20 mg a day p.r.n., metformin 500 mg a day, Januvia 100 mg a day, glimepiride 8 mg a day, Relafen 500 mg b.i.d., Neurontin 600 mg t.i.d., Detrol-LA 4 mg a d ay, Kenalog topical ointment, saline eye drops, p.r.n. Zyrtec and p.r.n. Tylenol 4. She is currently on Augmentin and IV Levaquin for an E. coli urinary tract infection. Her aspirin has been dropped t o 81 mg a day. Coreg has been added at 6.25 mg b.i.d., losartan 50 mg a day, clonidine 0.1 mg p.o. p .r.n., alogliptin 25 mg a day, glimepiride 8 mg a day, sliding scale insulin, fenofibrate, and trospi um 20 mg b.i.d. as therapeutic substitution for Detrol-LA. ALLERGIES: She reports allergies to POLISTIREX formulations of CHLORPHENIRAMINE and HYDROCODONE, to PROPOFOL and to TUSSIN. SOCIAL HISTORY: She has not smoked for many years. She does not drink alcohol. FAMILY HISTORY: Her father and both grandfathers had Mis, one of her brothers has diabetes. REVIEW OF SYSTEMS: Notable for frequency and urgency of urination, chronic swelling of the right low er extremity, painful paresthesias in the right lower extremity. No transient eye, speech, facial, o r extremity symptoms to suggest TIAs. She reports a clumsy gait. PHYSICAL EXAMINATION: GENERAL: She is a plainspoken woman in no distress. VITAL SIGNS: Currently, heart rates are in the 70s and 80s, blood pressure in the 130s to 140s over 50s to 60s, O2 sats are 95% on nasal cannula oxygen. She is 5 feet 8 and weighs 198 pounds. She has a well-healed surgical scar in the right neck. She has bilateral carotid bruits, louder on the left than on the right. LUNGS: She has clear breath sounds. CARDIOVASCULAR: Regular rate and rhythm. ABDOMEN: Soft, nontender. EXTREMITIES: She has a pressure dressing on the right radial from her calf this morning. She has an easily palpable left radial pulse and easily palpable left dorsalis pedis. A very strong right post erior tibial. She has some mild edema in the right lower leg. She has good capillary refill in the toes of both feet. She has no obvious varicosities. LABORATORY EXAM: Her hemoglobin is 10.9, platelets 207,000. Her UA showed 21-50 white blood cells, no proteinuria, but 3+ bacteriuria. She grew an E. coli with multiple sensitivities. Her troponin p eaked at 0.373 on the morning of the . BNP at that time was 119.1. Her electrolytes are normal. Her glucoses have been in the low to mid 100s, BUN was 29 and creatinine 1.80 on admission and have come down to 23 and 1.30 yesterday and 21 and 1.40 today. Her chest x-ray showed no obvious cardiom egaly, does show some aortic knob calcifications. The outside film evidently a copy and very poor qu ality in the copying, chest x-ray that she had, when she could not lie flat, showed severe pulmonary edema that has since improved. Her cardiac catheterization demonstrates a right dominant system with a long lesion in the LAD, just beyond the first septal cardiac cath lab radiology technologist, that in its maximum is around 80- 90% stenotic. There is some diffuse irregularity in the vessel to suggest diffuse disease. The circ umflex system has one main obtuse marginal that goes out towards the apex and is a large vessel and h as serial 90%-95% stenoses in it. The right coronary in its mid portion at the takeoff of an acute m arginal has a subtotal stenosis in it. LVEF, by my estimation, is around 70%. LVEDPs were 20 to 25. ASSESSMENT AND RECOMMENDATIONS: Severe three-vessel coronary disease in a diabetic woman with cerebr ovascular disease, mild renal insufficiency, diabetes, and aortic valve calcifications, who came in w ith an OH, but has had post-infarction angina and failure symptoms. I think the safest course of the humza is surgical revascularization. She currently appears quite comfortable and there probably is no t a lot of benefit to delaying her surgery and we will schedule for in the morning.
--- NOTE | 2017-09-26 15:39 | PDOC.PN ---
- Subjective Encounter Start Date: 09/26/17 Encounter Start Time: 15:37 Subjective: feels better today. breathing easier and no chest pain -: no acute events overnight. -: s/p cardiac Cath showing severe MV disease - Objective MAR Reviewed: Yes Vital Signs & Weight: Vital Signs (12 hours) Temp Pulse Pulse Pulse Resp BP BP 09/26/17 12:00 98.9 F 09/26/17 10:45 78 79 141/68 H 09/26/17 08:00 99.1 F 09/26/17 07:38 98.8 F 94 20 09/26/17 05:51 116/63 09/26/17 04:00 98.8 F BP Pulse Ox Pulse Ox Pulse Ox 09/26/17 12:00 09/26/17 10:45 138/73 96 95 09/26/17 08:00 09/26/17 07:38 96 09/26/17 05:51 09/26/17 04:00 Weight Weight 197 lb 12.074 oz Most Recent Monitor Data Heart Rate from ECG 86 NIBP 124/56 NIBP BP-Mean 74 Respiration from ECG 23 SpO2 97 I&O: 09/25/17 09/26/17 09/27/17 06:59 06:59 06:59 Intake Total 1355 216.4 150 Output Total 1450 2425 330 Balance -95 -2208.6 -180 Result Diagrams: 09/26/17 05:10 09/26/17 05:10 Additional Labs: Accuchecks 09/26/17 09/25/17 09/25/17 05:52 22:32 15:51 POC Glucose 101 141 H 187 H Microbiology 09/24/17 09:37 Urine clean catch Urine Culture - Preliminary Presumptive Escherichia coli labs reviewed Phys Exam - Physical Examination Constitutional: NAD HEENT: PERRLA, moist MMs, sclera anicteric, oral pharynx no lesions Neck: no nodes, no JVD, supple, full ROM Respiratory: no wheezing, no rales, no rhonchi, clear to auscultation bilateral Cardiovascular: RRR, no significant murmur, no rub Gastrointestinal: soft, non-tender, no distention, positive bowel sounds Musculoskeletal: no edema, pulses present Neurological: non-focal, normal sensation, moves all 4 limbs Psychiatric: normal affect, A&O x 3 Skin: no rash Dx/Plan (1) Unstable angina Status: Acute (2) Uncontrolled hypertension Code(s): I10 - ESSENTIAL (PRIMARY) HYPERTENSION Status: Acute (3) Cellulitis of foot Code(s): L03.119 - CELLULITIS OF UNSPECIFIED PART OF LIMB Status: Acute (4) UTI (urinary tract infection) Status: Acute (5) Acute kidney injury superimposed on CKD Code(s): N17.9 - ACUTE KIDNEY FAILURE, UNSPECIFIED; N18.9 - CHRONIC KIDNEY DISEASE, UNSPECIFIED Status: Acute (6) DM2 (diabetes mellitus, type 2) Status: Chronic (7) HTN (hypertension) Code(s): I10 - ESSENTIAL (PRIMARY) HYPERTENSION Status: Chronic (8) HLD (hyperlipidemia) Code(s): E78.5 - HYPERLIPIDEMIA, UNSPECIFIED Status: Chronic (9) H/O: CVA (cerebrovascular accident) Code(s): Z86.73 - PRSNL HX OF TIA (TIA), AND CEREB INFRC W/O RESID DEFICITS Status: Chronic (10) CAD (coronary artery disease) Code(s): I25.10 - ATHSCL HEART DISEASE OF [place] CORONARY ARTERY W/O ANG PCTRS Status: Chronic - Plan plan discussed w/ family, continue antibiotics, out of bed/ambulate, DVT proph w /SCDs Severe MV disease.CTVS consult.CABG in am -: hemodynamically stable.cont BB,ARB. -: BP better controlled.off of nitro drip. -: cont Levaquin for UTI.Cx w E.coli sensitive to Levaquin -: cont augmentin for foot celluliis-clinically better * .cont O2,nebs prn . Review of Systems - Review of Systems Constitutional: weakness, malaise. negative: fever, chills, sweats, other Respiratory: negative: Cough, Dry, Shortness of Breath, Hemoptysis, SOB with Excertion, Pleuritic Pain, Sputum, Wheezing Cardiovascular: negative: chest pain, palpitations, orthopnea, paroxysmal nocturnal dyspnea, edema, light headedness, other Gastrointestinal: negative: Nausea, Vomiting, Abdominal Pain, Diarrhea, Constipation, Melena, Hematochezia, Other Genitourinary: negative: Dysuria, Frequency, Incontinence, Hematuria, Retention , Other Musculoskeletal: negative: Neck Pain, Shoulder Pain, Arm Pain, Back Pain, Hand Pain, Leg Pain, Foot Pain, Other Neurological: negative: Weakness, Numbness, Incoordination, Change in Speech, Confusion, Seizures, Other - Medications/Allergies Allergies/Adverse Reactions: Allergies Allergy/AdvReac Type Severity Reaction Status Date / Time chlorpheniramine polistirex Allergy Mild Verified 09/24/17 06:21 [From Tussionex] cephalexin [From Keflex] Allergy Verified 09/24/17 06:21 hydrocodone polistirex Allergy Verified 09/24/17 06:21 [From Tussionex] propofol AdvReac Nausea Verified 09/24/17 06:21 tussin AdvReac Emesis Uncoded 09/24/17 06:21 Medications: Current Medications Acetaminophen (Tylenol) 650 mg PO Q4H PRN PRN Reason: Headache/Fever or Pain Stop: 09/27/17 08:59 Last Admin: 09/24/17 20:18 Dose: 650 mg Al Hydroxide/Mg Hydroxide (Maalox) 30 ml PO Q6H PRN PRN Reason: Heartburn or Indigestion Stop: 09/27/17 08:59 Alogliptin Benzoate (Alogliptin) 25 mg PO DAILY [facility] Stop: 09/27/17 08:59 Last Admin: 09/26/17 08:00 Dose: Not Given Alprazolam (Xanax) 0.25 mg PO BIDPRN PRN PRN Reason: Anxiety Stop: 09/27/17 08:59 Amoxicillin/Clavulanate Potassium (Augmentin) 875 mg PO Q12HR [facility] Last Admin: 09/26/17 09:00 Dose: Not Given Aspirin (Ecotrin) 81 mg PO DAILY [facility] Stop: 09/27/17 08:59 Last Admin: 09/26/17 09:00 Dose: Not Given Benzonatate (Tessalon) 100 mg PO Q4H PRN PRN Reason: Cough Stop: 09/27/17 08:59 Bisacodyl (Dulcolax) 10 mg PO DAILYPRN PRN PRN Reason: Constipation Stop: 09/27/17 08:59 Last Admin: 09/25/17 08:20 Dose: 10 mg Calcium Carbonate (Tums) 1,000 mg PO Q4H PRN PRN Reason: Heartburn or Indigestion Stop: 06/26/18 08:59 Carvedilol (Coreg) 6.25 mg PO BID-WM [facility] Last Admin: 09/26/17 05:51 Dose: 6.25 mg Clonidine (Catapres) 0.1 mg PO Q4H PRN PRN Reason: Systolic BP > 160 Stop: 09/27/17 08:59 Last Admin: 09/25/17 12:03 Dose: 0.1 mg Dextrose/Water (Dextrose 50%) 25 gm SLOW IVP PRN PRN PRN Reason: Hypoglycemia Stop: 09/27/17 08:59 Diazepam (Valium) 5 mg IVP WILLCALL [facility] Stop: 09/26/17 20:00 Famotidine (Pepcid) 20 mg PO 2100 [facility] Stop: 09/27/17 08:59 Fenofibrate (Tricor) 48 mg PO DAILY [facility] Stop: 09/27/17 08:59 Last Admin: 09/26/17 09:00 Dose: Not Given Gabapentin (Neurontin) 600 mg PO TID [facility] Stop: 09/27/17 08:59 Last Admin: 09/26/17 14:36 Dose: 600 mg Glimepiride (Amaryl) 8 mg PO DAILY [facility] Stop: 09/27/17 08:59 Last Admin: 09/26/17 09:00 Dose: Not Given Glucagon (Glucagon) 1 mg IM PRN PRN PRN Reason: Hypoglycemia Stop: 09/27/17 08:59 Guaifenesin (Robitussin Sf) 200 mg PO Q4H PRN PRN Reason: Cough Stop: 09/27/17 08:59 Hydralazine HCl (Apresoline) 10 mg SLOW IVP Q4H PRN PRN Reason: Systolic BP > 170 Stop: 09/27/17 08:59 Last Admin: 09/25/17 13:06 Dose: 10 mg Dextrose/Water (D5w) 1,000 mls @ 0 mls/hr IV .Q0M PRN; As Directed PRN Reason: Hypoglycemia Stop: 09/27/17 08:59 Sodium Chloride (Normal Saline 0.9%) 1,000 mls @ 100 mls/hr IV .Q10H [facility] Stop: 09/27/17 08:59 Last Admin: 09/26/17 05:53 Dose: 1,000 mls Nitroglycerin/Dextrose (Nitroglycerin 50 Mg/250 Ml Bot) 250 mls @ 0 mls/hr IVPB INF PRN; Protocol; As Directed PRN Reason: SBP >170 Stop: 09/27/17 08:59 Sodium Chloride (Normal Saline 0.9%) 1,000 mls @ 125 mls/hr IV .Q8H [facility] Stop: 09/26/17 16:01 Last Admin: 09/26/17 10:30 Dose: 1,000 mls Levofloxacin 250 mg/ Device 50 mls @ 100 mls/hr IVPB Q24HR [facility] Last Admin: 09/26/17 15:05 Dose: 50 mls Insulin Human Lispro (Humalog) 0 units SC .MODERATE SLIDING SC PRN PRN Reason: Moderate Correctional Scale Stop: 09/27/17 08:59 Insulin Human Lispro (Humalog) 0 units SC .BEDTIME SLIDING SC PRN PRN Reason: Bedtime Correctional Scale Stop: 09/27/17 08:59 Losartan Potassium (Cozaar) 50 mg PO DAILY [facility] Last Admin: 09/26/17 09:00 Dose: Not Given Magnesium Hydroxide (Milk Of Magnesium) 30 ml PO DAILYPRN PRN PRN Reason: Constipation Stop: 09/27/17 08:59 Multivitamins (Theragran) 1 tab PO DAILY [facility] Stop: 09/27/17 08:59 Last Admin: 09/26/17 13:32 Dose: Not Given Nitroglycerin (Nitrostat) 0.4 mg SL Q5MIN PRN PRN Reason: Chest Pain Stop: 09/27/17 08:59 Ondansetron HCl (Zofran) 4 mg IVP Q6H PRN PRN Reason: Nausea/Vomiting Stop: 09/27/17 08:59 Pantoprazole Sodium (Protonix) 40 mg PO DAILYPRN PRN PRN Reason: INDIGESTION Stop: 09/27/17 08:59 Promethazine HCl (Phenergan) 12.5 mg PO WILLCALL [facility] Stop: 09/27/17 08:59 Senna (Senokot) 2 tab PO HSPRN PRN PRN Reason: Constipation Stop: 09/27/17 08:59 Sodium Chloride (Flush - Normal Saline) 10 ml IVF Q12HR [facility] Stop: 09/27/17 08:59 Last Admin: 09/26/17 09:00 Dose: 10 ml Sodium Chloride (Flush - Normal Saline) 10 ml IVF PRN PRN PRN Reason: Saline Flush Stop: 09/27/17 08:59 Triamcinolone Acetonide (Kenalog 0.1% Cream) 0 gm TOP BIDPRN PRN PRN Reason: leg pain Stop: 09/27/17 08:59 Trospium (Trospium) 20 mg PO BID [facility] Stop: 09/27/17 08:59 Last Admin: 09/26/17 09:00 Dose: Not Given
[2017-09-26] MEDS: ALPRAZolam 0.25 MG TAB PO PRN (16:32)
[2017-09-26] MEDS ORDERED: Famotidine 20 MG TAB PO SCH (21:00)
[2017-09-27] MEDS: Sodium Chloride 0.9% 1,000 ML IV SCH ×2 (00:06→13:08)
[2017-09-27] MEDS ORDERED: Lorazepam 2 MG/ML VIAL SLOW IVP SCH (03:30)
[2017-09-27 05:33] LABS: #Eosinphils 0.1 thou/uL (0.0-0.7); #Lymphocytes 0.8 thou/uL (1.20-3.40); #Monocytes 1.3 thou/uL (0.11-0.59); #Neutrophils 11.4 thou/uL (1.40-6.50); %Basophils 0.3 % (0.0-1.0); %Eosinophils 0.9 % (0.0-10.0); %Monocytes 9.6 % (0.0-10.0); %Neutrophils 83.3 % (42.0-75.0); Hemoglobin 11.1 g/dL (12.0-16.0); Mean Corpuscular HGB CONC 33.6 g/dL (32.0-36.0); Mean Corpuscular Hemoglobin 31.6 pg (27.0-31.0); Mean Corpuscular Volume 94.1 fL (78.0-98.0); Mean Platelet Volume 7.3 fL (7.4-10.4); Platelet Count 233 thou/uL (130-400); RBC Distribution Width 11.8 % (11.5-14.5); White Blood Cell (WBC) Count 13.6 thou/uL (4.8-10.8)
[2017-09-27] MEDS: Carvedilol 6.25 MG TAB PO SCH (05:54)
[2017-09-27 06:00] LABS: Anion Gap 16 mmol/L (10-20); BUN (Urea Nitrogen) 22 mg/dL (9.8-20.1); Calc. Creatinine Clearance 49 mL/min (70-130); Calcium 8.6 mg/dL (7.8-10.44); Carbon Dioxide 20 mmol/L (23-31); Chloride 107 mmol/L (98-107); Estimated GFR-MDRD 41; Glucose 177 mg/dL (83-110); Potassium 4.6 mmol/L (3.5-5.1); Sodium 138 mmol/L (136-145)
[2017-09-27] MEDS ORDERED: Albumin 5% 0 ML ONE (06:28)
[2017-09-27] MEDS ORDERED: Heparin 10,000 UNITS/1 ML VIAL 30,000 UNITS in Sodium Chloride 0.9% 1,000 ML FS SCH (06:45)
[2017-09-27] MEDS ORDERED: Fentanyl 250 MCG/5 ML VIAL ONE ×2 (07:37)
--- NOTE | 2017-09-27 08:23 | RAD ---
UPRIGHT PORTABLE CHEST 1 VIEW: Date: 09/27/17 HISTORY: 77-year-old female with history of pulmonary edema follow-up. COMPARISON: 09/26/17. FINDINGS: There are progressive bilateral interstitial and alveolar opacities throughout both lungs with bilate ral vascular congestion and bilateral pleural effusions, evidence for worsening bilateral pulmonary e rola. Stable biapical pleural thickening. Monitor leads overlie the chest. IMPRESSION: Developing bilateral interstitial and alveolar edema, worsening vascular congestion, and bilateral pl eural effusions since prior study. POS: LUIS EDUARDO
[2017-09-27] MEDS: Amoxicillin/Potassium Clav 875 MG TAB PO SCH (10:59)
[2017-09-27] MEDS: Losartan 25 MG TAB PO SCH (10:59)
[2017-09-27] MEDS ORDERED: Sodium Chloride 0.9% 10 ML ONE (11:44)
[2017-09-27] MEDS ORDERED: Protamine Sulfate 50 MG/5 ML VIAL ONE (11:44)
--- NOTE | 2017-09-27 12:03 | PRG ---
DATE OF SERVICE: 09/27/2017 SERVICE: Pulmonary Medicine. INTERVAL HISTORY: The patient is doing fine from a cardiovascular and respiratory standpoint. She is breathing comfortably this morning about to go down for a coronary bypass graft. Otherwise, there has been no interval change to her condition. PHYSICAL EXAMINATION: VITAL SIGNS: Afebrile, pulse 87, blood pressure 161/80, respirations 27, saturation 97% on BiPAP with 30% FiO2. GENERAL: The patient is awake and alert, in no apparent distress. LUNGS: Excellent air entry. There is no prolonged expiratory phase or wheezing appreciated. HEART: Normal rate, regular. ABDOMEN: Soft, nontender, nondistended. Bowel sounds are positive. MUSCULOSKELETAL: No cyanosis or clubbing. There is trace pitting in the bilateral lower extremities. NEUROLOGIC: Grossly nonfocal. LABORATORY DATA: WBC 13.6, hemoglobin 11.0, platelets 233,000. Creatinine downtrending to 1.27. Basic metabolic profile is, otherwise, unremarkable. E. coli is growing in the urine, which is essentially pansensitive. IMAGING: Chest x-ray demonstrates bilateral interstitial and alveolar edema with increasing vascular congestion. ASSESSMENT: 1. Acute hypoxic respiratory failure. 2. Non-ST elevation myocardial infarction. 3. Coronary artery disease, severe. 4. Hypertensive emergency. 5. 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 DISCUSSION AND PLAN: The patient is going down for cardiac bypass surgery. I will touch base with the patient after this procedure is performed and wean the ventilator away as quickly as possible. Pulmonary Critical Care will continue to follow along while patient remains in this location. CRITICAL CARE TIME: 30 minutes. FLORES
[2017-09-27] MEDS ORDERED: PROPOFOL 200 MG/20 ML VIAL ONE (12:34)
[2017-09-27] MEDS ORDERED: Sodium Bicarb 50 MEQ/50 ML VIAL ONE (12:34)
[2017-09-27] MEDS ORDERED: Mannitol 12.5 GM/50 ML ONE (12:34)
[2017-09-27] MEDS ORDERED: Lidocaine 2% PF 100 mg/5 ml Syringe ONE (12:34)
[2017-09-27] MEDS ORDERED: Protamine Sulfate 250 MG/25 ML VIAL ONE (12:34)
[2017-09-27] MEDS ORDERED: Magnesium 5 GM/10 ML VIAL ONE (12:34)
[2017-09-27] MEDS ORDERED: Potassium Chlo 10 mEq/5 ml Syr ONE (12:34)
[2017-09-27] MEDS ORDERED: Cardioplegic Soln 1,000 ML BAG ONE (12:34)
[2017-09-27] MEDS ORDERED: Heparin 5,000 UNITS/ML VIAL ONE (12:34)
[2017-09-27] MEDS ORDERED: Heparin 30,000 units/30 ml VIAL ONE (12:34)
[2017-09-27] MEDS ORDERED: PHENYLEPHRINE-NS 100 MCG/ML 10 ML SYRINGE ONE (12:34)
[2017-09-27] MEDS ORDERED: Papaverine 60 MG/2 ML VIAL ONE (12:34)
[2017-09-27] MEDS ORDERED: Calcium Chloride 1 GM/10 ML Abboject SYRINGE ONE (12:34)
[2017-09-27] MEDS ORDERED: Norepinephrine 4 MG/4 ML VIAL ONE (12:34)
[2017-09-27] MEDS ORDERED: Ondansetron HCl/PF 4 MG/2 ML Vial IVP PRN (12:54)
[2017-09-27] MEDS ORDERED: Guaifenesin DM 100-10/5 ML UDCUP PO PRN (12:54)
[2017-09-27] MEDS ORDERED: Mag-Al 1200 mg/1200 mg/30 ML UDCUP PO PRN (12:54)
[2017-09-27] MEDS ORDERED: Fentanyl 100 MCG/2 ML VIAL SLOW IVP PRN ×2 (12:54)
[2017-09-27] MEDS ORDERED: Norepinephrine 8 MG/0.9% NS 250 ML IVPB PRN (12:54)
[2017-09-27] MEDS ORDERED: Hetastarch 6% 500 ML 500 ML IVPB PRN (12:54)
[2017-09-27] MEDS ORDERED: Bisacodyl 10 MG SUPP PR PRN (12:54)
[2017-09-27] MEDS ORDERED: Promethazine HCl 25 MG/ML VIAL IM PRN (12:54)
[2017-09-27] MEDS ORDERED: Bisacodyl 5 MG TAB PO PRN (12:54)
[2017-09-27] MEDS ORDERED: Post-Op Insulin Drip Protocol IVPB ONE (12:54)
[2017-09-27] MEDS ORDERED: Acetaminophen 325 MG TAB PO PRN (12:54)
[2017-09-27 13:31] LABS: INR-International Normal Ratio 1.4; PTT 37.1 SEC (22.9-36.1)
[2017-09-27] MEDS ORDERED: Dextrose 50% Abboject 50 ML SYRINGE SLOW IVP PRN (13:37)
[2017-09-27] MEDS ORDERED: Dextrose 5% in Water 1,000 ML IV PRN (13:37)
[2017-09-27 13:48] LABS: Actual Bicarbonate (HCO3a) 16.8 mEq/L (22-28); Base Excess (BEa) -6.6 mEq/L (-2.0 to +3.0); CO2 Tension 26.7 mmHg (35.0-45.0); Hemoglobin (Hb) 9.8 g/dL (12.0-16.0); O2 Tension (PaO2) 114.5 mmHg (> 70.0); pH, Arterial 7.42 (7.35-7.45)
[2017-09-27 13:49] LABS: ALV-art Gradient 208.625 (0-20); Calcium, Ionized 1.1 mmol/L (1.12-1.30); Puncture Site ALINE
[2017-09-27 13:52] LABS: Anion Gap 14 mmol/L (10-20); BUN (Urea Nitrogen) 23 mg/dL (9.8-20.1); Calc. Creatinine Clearance 53 mL/min (70-130); Calcium 7.6 mg/dL (7.8-10.44); Carbon Dioxide 17 mmol/L (23-31); Chloride 112 mmol/L (98-107); Estimated GFR-MDRD 44; Glucose 201 mg/dL (83-110); Potassium 4.8 mmol/L (3.5-5.1); Sodium 138 mmol/L (136-145)
[2017-09-27 13:56] LABS: Band 8 % (5-11); Hemoglobin 9.3 g/dL (12.0-16.0); Lymphocytes 8 % (21-51); MDiff Complete? YES; Mean Corpuscular HGB CONC 33.2 g/dL (32.0-36.0); Mean Corpuscular Hemoglobin 31.2 pg (27.0-31.0); Mean Platelet Volume 7.4 fL (7.4-10.4); Monocytes 4 % (0-10); Neutrophil 80 % (42-75); PLT Morphology Comment Appears Adequate; Platelet Count 204 thou/uL (130-400); RBC Distribution Width 11.8 % (11.5-14.5); Red Blood Cell (RBC) Count 2.98 mill/uL (4.20-5.40)
--- NOTE | 2017-09-27 15:09 | RAD ---
PORTABLE SUPINE CHEST ONE VIEW: History: 77-year-old female with history of post op open heart. Comparison: 09-27-17 FINDINGS: Left subclavian catheter, endotracheal tube, and multiple chest and mediastinal tubes are in place. A gain noted are some patchy interstitial and alveolar nodular parenchymal changes bilaterally, particu larly in the perihilar regions with no evidence for pneumothorax. Heart size is within normal limits. IMPRESSION: Recent post-operative changes. Stable patchy bilateral interstitial and alveolar nodular parenchymal changes, particularly in the perihilar regions. Continued short term follow up. POS: LUIS EDUARDO
--- NOTE | 2017-09-27 15:47 | OP ---
DATE OF PROCEDURE: 09/27/2017 PROCEDURES PERFORMED: Coronary artery bypass grafting x3 with left internal mammary artery to the LA D and reverse greater saphenous vein graft from the aorta to obtuse marginal and to the RCA. PREOPERATIVE DIAGNOSES: Coronary artery disease with post-infarction angina and acute systolic heart failure. POSTOPERATIVE DIAGNOSES: Coronary artery disease with post-infarction angina and acute systolic hea rt failure. SURGEON: Dr. Diaz. OUTPLACEMENT CONSULTANT: Dr. Dubois. ANESTHESIA: General endotracheal anesthesia. INDICATIONS: The patient is a 77-year-old diabetic woman, who awoke with crushing chest pain and rul ed in for myocardial infarction by enzymes. She has had paroxysms of chest pain, hypertension, and s hortness of breath in the malou-infarct period. Cardiac catheterization demonstrates severe three-ves maximo coronary disease. She is now taken to the operating room for coronary revascularization. FINDINGS: The pump time 86 minutes. Crossclamp time 40 minutes. Good quality ANAMIKA. Marginal greate r saphenous vein, somewhat better quality in the right thigh than in the left. The LAD was about a 1 .5 mm diffusely diseased vessel. The obtuse marginal was about a 2.5 mm vessel with diffuse proximal disease. The RCA was about 3 mm diffusely diseased vessel leading to a reasonably good quality 2 mm PDA. There were large bilateral pleural effusions. NARRATIVE REPORT: After informed consent was obtained, the patient was taken to the operating room a nd placed in supine position on the operating table. After the induction of general anesthesia, the patient's left upper chest was prepped and draped in sterile fashion. She was placed in Trendelenbur g and a triple-lumen central line kit was used to place a triple-lumen subclavian venous line by the Seldinger technique. All three ports easily aspirated and flushed. The line was secured. Ultrasoni c venous mapping of the left thigh suggested adequate vein. Her torso, groins, and lower extremities were prepped and draped in sterile fashion. An attempt was made to identify the previously mapped o ut vein just above the left knee. It proved to be a rather small vessel. No other suitable vein in that area could be identified and the saphenous then harvested was then exposed near the groin. It v clementine quickly became a small vessel of marginal quality and additional length of vein was taken from th e proximal right thigh where it was larger better quality vessel. The harvest sites were closed with skin tamar over 19-[place] bulb suction drains, because of the very poor quality of the tissue ther e. A median sternotomy was performed. The left ANAMIKA was mobilized as a pedicle from the xiphoid and left subclavian vein. An attempt was made to do so through an extrapleural exposure, but bulging of the lung makes exposure difficult. Upon entering the pleura, a fairly large pleural effusion was asp irated facilitating mammary exposure. The patient was heparinized. The mammary was ligated and divi ded distally. There was good flow through the mammary, which was then instilled intraluminally with papaverine solution. The mammary bed was inspected for hemostasis. The ANAMIAK retractor was placed wit h a Jones retractor. The pericardium was opened and marsupialized. The aorta was palpated and was s oft. A double concentric pursestring of #2 Ethibond was placed in the ascending aorta just beyond th e pericardial reflection and a single pursestring was placed in the right atrial appendage. Aortic a nd venous cannulae were inserted and secured by the pursestrings. The plane between the aorta and th e pulmonary artery was developed. Cardiopulmonary bypass was instituted and the patient was systemic ally cooled. The heart was examined. The vessel to be bypassed were identified. The mediastinal hi lar reflections of the pleura were mobilized and a longitudinal slit was made in the pericardium ante rior to the left phrenic nerve through which the mammary pedicle could be passed. An aortic crosscla mp was applied and cardioplegia was administered through an aortic root needle. Arrest had been achi eved. Attention was then turned to the distal right coronary. It was exposed and opened just distal to diffuse palpable plaque, that arteriotomy proved to be right at the crux and was extended slightl y onto the posterior descending artery, which was a better quality vessel than the right proper. The shoulder of the two veins, one harvested from the left thigh was reversed and anastomosed there end- to-side with running Prolene and tested by flushing cold cardioplegia down the graft. Attention was then turned to the obtuse marginal. It was exposed and opened a little bit beyond the bifurcation wh ere it became better quality vessel. The better of the two veins that have been reserved from the ob tuse marginal was then reversed and anastomosed there in a similar fashion. The LAD was then exposed distally, there was a very small vessel. At that point, it was followed a little bit proximally whe re it got a little bit larger and was opened and then grafted end-to-side with running 7-0 Prolene. The mammary pedicle was tacked to the epicardium. An aortotomy was made in the ascending aorta with a scalpel and punch incorporating the root needle site. The OM graft was trimmed to length and anast omosed there end-to-side with running Prolene. Because of the borderline quality and length of the v ein used for the right coronary graft, it was elected to bring that graft off of the crane of OM graft . Upon releasing the partially occluding clamp and deairing the veins, there appeared to be good francisca w through both grafts and no undue tension on any of the anastomoses. Posterior pericardial and bila teral pleural tubes were brought out through separate incisions. Right atrial and right ventricular temporary epicardial pacing wires were placed. The patient was then from cardiopulmonary b ypass. The aortic and venous cannula removed and their pursestring secured. Protamine was administe red. There was one bleeding point at the heel of the right coronary system vein graft to OM system v ein graft. Its proximal anastomosis was controlled with a mattress 7-0 Prolene suture, but on testin g that graft, blood stripped out of it. It did not readily refill suggesting severe compromise of th at anastomosis. The patient was given 10,000 units of heparin, and after adequate circulation time o f heparin, the vein grafts were isolated using bulldog clamps. A longitudinal venotomy was made in t he proximal portion of the right coronary system graft where it became a little bit larger, and the r eserved right thigh graft from the OM grafting was anastomosed there end-to-side and then the other e nd was anastomosed to the separate graftotomy made in the OM graft in a similar fashion. The isolate d bypass segment of proximal right coronary vein graft was then doubly ligated proximally and distall y and then divided to add some length to that vein to make sure there was no undue tension on any of the anastomoses. Hemostasis appeared adequate. An anterior mediastinal drain was placed. It was no t feasible to close the pericardium. The sternum was reapproximated with #7 stainless steel wires. The fascia closed over the wire with heavy Vicryl. Subcutaneous tissue was irrigated and reapproxima lupillo and the skin was closed with Vicryl subcuticular stitch. The wounds were dressed and the patient was taken to the intensive care unit in stable condition.
--- NOTE | 2017-09-27 18:10 | PDOC.CTH ---
Cardiology Progress Note - Subjective zPt seen shortly after CABG. Ventilated. CT in place. - Objective Vital Signs Temp Pulse Resp BP Pulse Ox 09/27/17 18:00 17 09/27/17 16:00 12 09/27/17 14:49 92 96/54 L 09/27/17 14:00 12 09/27/17 13:37 89 88/51 L 09/27/17 13:30 99 09/27/17 13:08 97.7 F 12 09/27/17 08:00 99.0 F 87 27 H 97 09/27/17 06:37 87 Weight 191 lb 2.252 oz 09/26/17 09/27/17 09/28/17 06:59 06:59 06:59 Intake Total 216.4 2487.9 359 Output Total 2425 1029 792 Balance -2208.6 1458.9 -433 - Physical Examination Neck: no JVD present Lungs: CTA, unlabored respirations Heart: RRR Abdomen: NT/ND, soft Extremities: + femoral B - Labs Result Diagrams: 09/27/17 13:16 09/27/17 13:16 Troponin/CKMB CK-MB (CK-2) 2.1 ng/mL (0-6.6) 09/25/17 11:03 Troponin I 0.245 ng/mL (< 0.028) H 09/25/17 11:03 - Assessment/Plan 1. NQWMI 2. Severe CAD Pt is s/p cabg Doing well Continue vent support per pulmonary On low dose epinephrine
--- NOTE | 2017-09-27 18:19 | PDOC.PN ---
- Subjective Encounter Start Date: 09/27/17 Encounter Start Time: 18:18 Subjective: seen in CCU post CABG. Intubated on weaning protocol -: no acute events.stable - Objective MAR Reviewed: Yes Vital Signs & Weight: Vital Signs (12 hours) Temp Pulse Resp BP Pulse Ox 09/27/17 18:00 17 09/27/17 16:00 12 09/27/17 14:49 92 96/54 L 09/27/17 14:00 12 09/27/17 13:37 89 88/51 L 09/27/17 13:30 99 09/27/17 13:08 97.7 F 12 09/27/17 08:00 99.0 F 87 27 H 97 09/27/17 06:37 87 Weight Weight 191 lb 2.252 oz Most Recent Monitor Data Heart Rate from ECG 68 NIBP 93/47 NIBP BP-Mean 72 Respiration from ECG 19 SpO2 95 I&O: 09/26/17 09/27/17 09/28/17 06:59 06:59 06:59 Intake Total 216.4 2487.9 359 Output Total 2425 1029 792 Balance -2208.6 1458.9 -433 Result Diagrams: 09/27/17 13:16 09/27/17 13:16 Additional Labs: Accuchecks 09/27/17 09/27/17 09/27/17 17:30 16:16 14:54 POC Glucose 154 H 185 H 181 H 09/27/17 09/27/17 09/27/17 13:24 12:03 11:34 POC Glucose 195 H 197 H 187 H 09/27/17 09/27/17 09/27/17 10:42 10:11 09:19 POC Glucose 177 H 157 H 150 H 09/27/17 09/27/17 09/27/17 08:21 05:23 00:14 POC Glucose 160 H 174 H 144 H Phys Exam - Physical Examination Constitutional: NAD HEENT: PERRLA, moist MMs, sclera anicteric, oral pharynx no lesions Neck: no nodes, no JVD, supple, full ROM Respiratory: no wheezing, no rales, no rhonchi, clear to auscultation bilateral Cardiovascular: RRR, no significant murmur, no rub Chest tube in place Gastrointestinal: soft, non-tender, no distention, positive bowel sounds Musculoskeletal: no edema, pulses present Neurological: non-focal, normal sensation, moves all 4 limbs Dx/Plan (1) Unstable angina Status: Acute (2) Uncontrolled hypertension Code(s): I10 - ESSENTIAL (PRIMARY) HYPERTENSION Status: Acute (3) Cellulitis of foot Code(s): L03.119 - CELLULITIS OF UNSPECIFIED PART OF LIMB Status: Acute Comment: on Augmentin (4) UTI (urinary tract infection) Status: Acute Comment: on Levaquin (5) Acute kidney injury superimposed on CKD Code(s): N17.9 - ACUTE KIDNEY FAILURE, UNSPECIFIED; N18.9 - CHRONIC KIDNEY DISEASE, UNSPECIFIED Status: Acute (6) DM2 (diabetes mellitus, type 2) Status: Chronic (7) HTN (hypertension) Code(s): I10 - ESSENTIAL (PRIMARY) HYPERTENSION Status: Chronic (8) HLD (hyperlipidemia) Code(s): E78.5 - HYPERLIPIDEMIA, UNSPECIFIED Status: Chronic (9) H/O: CVA (cerebrovascular accident) Code(s): Z86.73 - PRSNL HX OF TIA (TIA), AND CEREB INFRC W/O RESID DEFICITS Status: Chronic (10) CAD (coronary artery disease) Code(s): I25.10 - ATHSCL HEART DISEASE OF [place] CORONARY ARTERY W/O ANG PCTRS Status: Chronic - Plan DVT proph w/SCDs s/p 3Vessel CABG.cont supportive care. -: Vent weaning per PCCM. -: cont ABx.cont cardio-prudent meds -: am labs.CXR * . Review of Systems - Review of Systems Other: can not be obtained due to intubated state - Medications/Allergies Allergies/Adverse Reactions: Allergies Allergy/AdvReac Type Severity Reaction Status Date / Time chlorpheniramine polistirex Allergy Mild Verified 09/24/17 06:21 [From Tussionex] cephalexin [From Keflex] Allergy Verified 09/24/17 06:21 hydrocodone polistirex Allergy Verified 09/24/17 06:21 [From Tussionex] propofol AdvReac Nausea Verified 09/24/17 06:21 tussin AdvReac Emesis Uncoded 09/24/17 06:21 Medications: Current Medications Acetaminophen (Tylenol) 650 mg PO Q6H PRN PRN Reason: Headache/Fever Or Mild Pain Hydrocodone Bitart/Acetaminophen ([place] 5/325) 1 tab PO Q4H PRN PRN Reason: Moderate Pain (4-6) Hydrocodone Bitart/Acetaminophen ([place] 5/325) 2 tab PO Q4H PRN PRN Reason: Severe Pain (7-10) Al Hydroxide/Mg Hydroxide (Maalox) 30 ml PO Q4H PRN PRN Reason: Indigestion Albumin Human (Albumin 5%) 12.5 gm IVPB Q6H PRN PRN Reason: To Maintain SBP> 90 mmHG Stop: 09/28/17 12:55 Albumin Human (Albumin 5%) 25 gm IVPB Q6H PRN PRN Reason: To Maintain SBP > 90 mmHG Stop: 09/28/17 12:55 Aspirin (Aspirin) 325 mg PO DAILY JEMMA Bisacodyl (Dulcolax) 10 mg PO Q12H PRN PRN Reason: Constipation Bisacodyl (Dulcolax) 10 mg SD Q12H PRN PRN Reason: Constipation Dextrose/Water (Dextrose 50%) 25 gm SLOW IVP PRN PRN PRN Reason: PER HYPOGLYCEMIC PROTOCOL Famotidine (Pepcid) 20 mg SLOW IVP Q12HR JEMMA Fentanyl (Sublimaze) 25 mcg SLOW IVP Q2H PRN PRN Reason: Moderate Pain (4-6) Stop: 09/29/17 12:47 Fentanyl (Sublimaze) 50 mcg SLOW IVP Q2H PRN PRN Reason: Severe Pain (7-10) Stop: 09/29/17 12:47 Glucagon (Glucagon) 1 mg SC PRN PRN PRN Reason: PER HYPOGLYCEMIC PROTOCOL Guaifenesin/Dextromethorphan (Robitussin Dm) 15 ml PO Q4H PRN PRN Reason: Cough Hydralazine HCl (Apresoline) 10 mg SLOW IVP Q6H PRN PRN Reason: To Maintain SBP< 140mmHG Hetastarch/Sodium Chloride (Hespan) 500 mls @ 0 mls/hr IVPB PRN PRN; As Directed PRN Reason: To Maintain SBP > 90mmHg Stop: 09/28/17 12:47 Norepinephrine Bitartrate (Levophed) 250 mls @ 0 mls/hr IVPB PRN PRN; Protocol ; Titrate PRN Reason: To maintain SBP > 90 mmHG Last Admin: 09/27/17 13:08 Dose: 250 mls Nicardipine HCl 25 mg/ Sodium (Chloride) 260 mls @ 0 mls/hr IVPB INF PRN; Protocol; Titrate PRN Reason: To Maintain SBP< 140mmHG Nitroglycerin/Dextrose (Nitroglycerin 50 Mg/250 Ml Bot) 250 mls @ 0 mls/hr IVPB PRN PRN; Protocol; Titrate PRN Reason: To Maintain SBP< 140mmHG Sodium Chloride (Normal Saline 0.9%) 1,000 mls @ 75 mls/hr IV .[id number] JEMMA Last Admin: 09/27/17 13:08 Dose: 1,000 mls Insulin Human Regular 100 (units/ Sodium Chloride) 101 mls @ 0 mls/hr IVPB INF JEMMA; As Directed PRN Reason: Protocol Last Admin: 09/27/17 14:55 Dose: 101 mls Dextrose/Water (D5w) 1,000 mls @ 0 mls/hr IV INF PRN; As Directed PRN Reason: PRN HYPOGLYCEMIC PROTOCOL Insulin Human Regular (Humulin R) 0 units SC Q4H PRN; Protocol PRN Reason: POST OP SLIDING SCALE Morphine Sulfate (Morphine) 2 mg SLOW IVP Q15MIN PRN PRN Reason: Severe Pain (7-10) Last Admin: 09/27/17 17:59 Dose: 2 mg Ondansetron HCl (Zofran) 4 mg IVP Q6H PRN PRN Reason: Nausea/Vomiting Potassium Chloride (Kcl) 20 meq IVPB PRN PRN PRN Reason: K level </= 4.0 Promethazine HCl (Phenergan) 6.25 mg IM Q4H PRN PRN Reason: Nausea/Vomiting Sodium Chloride (Flush - Normal Saline) 10 ml IVF PRN PRN PRN Reason: Saline Flush
[2017-09-27 19:00] LABS: Hemoglobin 9.1 g/dL (12.0-16.0)
[2017-09-27] MEDS ORDERED: Furosemide 20 MG/2 ML VIAL SLOW IVP SCH (19:00)
[2017-09-27 19:14] LABS: Potassium 4.3 mmol/L (3.5-5.1)
[2017-09-27] MEDS ORDERED: Famotidine/PF 20 mg/2ml Vial SLOW IVP SCH (21:00)
[2017-09-28] MEDS: Sodium Chloride 0.9% 1,000 ML IV SCH ×2 (02:30→15:58)
[2017-09-28 05:00] LABS: #Monocytes 1.6 thou/uL (0.11-0.59); #Neutrophils 11.8 thou/uL (1.40-6.50); %Basophils 0.2 % (0.0-1.0); %Eosinophils 0.3 % (0.0-10.0); %Lymphocytes 7.2 % (21.0-51.0); %Monocytes 10.8 % (0.0-10.0); %Neutrophils 81.5 % (42.0-75.0); Hemoglobin 8.7 g/dL (12.0-16.0); Mean Corpuscular HGB CONC 33.3 g/dL (32.0-36.0); Mean Corpuscular Hemoglobin 31.2 pg (27.0-31.0); Mean Corpuscular Volume 93.9 fL (78.0-98.0); Platelet Count 187 thou/uL (130-400); Red Blood Cell (RBC) Count 2.78 mill/uL (4.20-5.40); White Blood Cell (WBC) Count 14.5 thou/uL (4.8-10.8)
[2017-09-28 05:13] LABS: Anion Gap 11 mmol/L (10-20); BUN (Urea Nitrogen) 32 mg/dL (9.8-20.1); Calc. Creatinine Clearance 40 mL/min (70-130); Calcium 8.1 mg/dL (7.8-10.44); Carbon Dioxide 21 mmol/L (23-31); Chloride 114 mmol/L (98-107); Estimated GFR-MDRD 32; Glucose 132 mg/dL (83-110); Potassium 4.1 mmol/L (3.5-5.1); Sodium 142 mmol/L (136-145)
[2017-09-28] MEDS ORDERED: Furosemide 40 MG/4 ML VIAL SLOW IVP SCH (07:15)
--- NOTE | 2017-09-28 08:09 | PDOC.CTH ---
Cardiology Progress Note - Subjective Pt not waking up today. she appears to be moving her extremities. Pt with rightward gaze and responsive pupils. - Objective Vital Signs Temp Pulse Resp BP 09/28/17 06:30 80 123/42 L 09/28/17 06:00 22 H 09/28/17 04:00 24 H 09/28/17 03:00 97.7 F 09/28/17 02:26 99 103/48 L 09/28/17 02:00 17 09/28/17 00:00 16 09/27/17 23:00 98.4 F 09/27/17 22:22 76 116/51 L 09/27/17 22:00 18 Weight 179 lb 14.355 oz 09/27/17 09/28/17 09/29/17 06:59 06:59 06:59 Intake Total 2487.9 1047 Output Total 1029 1617 83 Balance 1458.9 -570 -83 - Physical Examination General/Neuro: NAD Neck: no JVD present Lungs: CTA, unlabored respirations Heart: RRR Abdomen: NT/ND, soft Extremities: + femoral B - Labs Result Diagrams: 09/28/17 04:40 09/28/17 04:40 Troponin/CKMB CK-MB (CK-2) 2.1 ng/mL (0-6.6) 09/25/17 11:03 Troponin I 0.245 ng/mL (< 0.028) H 09/25/17 11:03 - Assessment/Plan 1. NQWMI 2. Severe CAD 3. RI 4. MS changes Concerned about CVA post CABG CT scan results pending Will discuss with CV surgery
--- NOTE | 2017-09-28 10:02 | RAD ---
CHEST ONE VIEW: Comparison: 09-27-17 History: Status post open heart surgery. FINDINGS: Single view of the chest shows normal sized cardiomediastinal silhouette. The patient is status post sternotomy. The lines and tubes are unchanged in position. There are small bilateral pleural effusion s. Opacities in the lung bases may represent atelectasis. IMPRESSION: Stable exam. POS: [facility]
--- NOTE | 2017-09-28 12:25 | PRG ---
DATE OF SERVICE: 09/28/2017 SERVICE: Pulmonary Medicine INTERVAL HISTORY: Since the surgery yesterday, the patient got 2 mg of morphine. Overnight, she got 25 mcg of fentanyl. Other than that, she has received nothing. She is not doing anything purposeful on the ventilator this morning. She is moving all 4 extremities. I look at her eyes and she has a rightward gaze preference. Otherwise, there has been no interval change to her condition. PHYSICAL EXAMINATION: VITAL SIGNS: Afebrile, pulse 103, blood pressure 142/68, respirations 31, saturation 90% on room air. GENERAL: The patient is intubated. She is not under the influence of any sedation, but not performing any purposeful activity. HEENT: Normocephalic, atraumatic. Sclerae are white, conjunctivae pink. Oral mucosa is moist without lesions. LUNGS: Decent air entry. There is no prolonged expiratory phase or wheezing present. No rhonchi or crackles are appreciated. HEART: Normal rate, regular. ABDOMEN: Soft, nontender, nondistended. Bowel sounds are positive. MUSCULOSKELETAL: No cyanosis or clubbing. There is no pitting in the bilateral lower extremities. NEUROLOGIC: Grossly nonfocal. LABORATORY DATA: WBC 14.5, hemoglobin 8.7 and stable, platelets 187,000. Blood sugar ranges from 104-172. Creatinine 1.58 and up trending, BUN 32, chloride 114. Sodium 142. E. coli is growing in the urine from the . IMAGING: Chest x-ray demonstrates left-sided thoracostomy tube. There is also a mediastinal drain in place. A left subclavian central venous catheter terminates in decent position. There is a right thoracostomy drain also in place. Endotracheal tube terminates in decent position. I do not appreciate any acute pleural parenchymal abnormality. ASSESSMENT: 1. Acute hypoxic respiratory failure. 2. Non-ST elevation myocardial infarction. 3. Coronary artery disease, severe. 4. Hypertensive emergency, resolved. 5. 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 6. Coronary bypass graft, postop day #1. DISCUSSION AND PLAN: The patient is not waking up the way I expect. She does have a rightward gaze preference and is not responding appropriately to her environment. As such, I will proceed with a CT of the head to make certain there is no acute intracranial abnormality there. At this point, she is not in a place where we can consider extubation. We will watch her ins and outs closely as she has had a little bit of an acute kidney injury. We will take care to make certain she does not get too terribly volume overloaded. Critical care time: 30 minutes. FLORES
--- NOTE | 2017-09-28 13:22 | PDOC.PN ---
- Subjective Encounter Start Date: 09/28/17 Encounter Start Time: 11:50 Subjective: is being taken for CT brain -: on vent, opens eyes, not on sedation -: does not follow verbal stimuli, per RN moves all extre - Objective MAR Reviewed: Yes Vital Signs & Weight: Vital Signs (12 hours) Temp Pulse Resp BP 09/28/17 12:00 98.8 F 23 H 09/28/17 10:14 85 145/48 H 09/28/17 10:00 28 H 09/28/17 08:00 24 H 09/28/17 06:30 80 123/42 L 09/28/17 06:00 22 H 09/28/17 04:00 24 H 09/28/17 03:00 97.7 F 09/28/17 02:26 99 103/48 L 09/28/17 02:00 17 Weight Admit Weight 196 lb Weight 179 lb Most Recent Monitor Data Heart Rate from ECG 82 NIBP 131/58 NIBP BP-Mean 95 Respiration from ECG 22 SpO2 96 I&O: 09/27/17 09/28/17 09/29/17 06:59 06:59 06:59 Intake Total 2487.9 1047 Output Total 1029 1617 894 Balance 1458.9 -570 -894 Result Diagrams: 09/28/17 04:40 09/28/17 04:40 Additional Labs: Accuchecks 09/28/17 09/28/17 09/28/17 12:29 11:07 10:07 POC Glucose 138 H 162 H 172 H 09/28/17 09/28/17 09/28/17 09:13 08:02 07:18 POC Glucose 146 H 136 H 119 H 09/28/17 09/28/17 09/28/17 06:04 04:30 02:29 POC Glucose 104 138 H 163 H 09/28/17 09/27/17 09/27/17 00:53 23:19 21:29 POC Glucose 173 H 132 H 98 09/27/17 09/27/17 09/27/17 20:06 18:17 17:30 POC Glucose 127 H 151 H 154 H 09/27/17 09/27/17 09/27/17 16:16 14:54 13:24 POC Glucose 185 H 181 H 195 H Phys Exam - Physical Examination HEENT: moist MMs, sclera anicteric right gaze preference Neck: no JVD, supple Respiratory: no wheezing, no rales chest tube+ Cardiovascular: RRR, no significant murmur Gastrointestinal: soft, no distention, positive bowel sounds Musculoskeletal: no edema, pulses present has focal signs+ Dx/Plan (1) S/P CABG x 3 Code(s): Z95.1 - PRESENCE OF AORTOCORONARY BYPASS GRAFT Status: Acute Comment: bob to lad, rsvg to obt johnny and rca done on 09/27/2017 (2) Acute kidney injury superimposed on CKD Code(s): N17.9 - ACUTE KIDNEY FAILURE, UNSPECIFIED; N18.9 - CHRONIC KIDNEY DISEASE, UNSPECIFIED Status: Acute (3) CAD (coronary artery disease) Code(s): I25.10 - ATHSCL HEART DISEASE OF [place] CORONARY ARTERY W/O ANG PCTRS Status: Chronic Qualifiers: Coronary Disease-Associated Artery/Lesion type: bypass graft [place] vs. transplanted heart: [place] heart Associated angina: with unstable angina Qualified Code(s): I25.700 - Atherosclerosis of coronary artery bypass graft(s) , unspecified, with unstable angina pectoris (4) DM2 (diabetes mellitus, type 2) Status: Chronic Qualifiers: Diabetes mellitus long-term insulin use: without long-term use Diabetes mellitus complication status: with unspecified complications Qualified Code(s) : E11.8 - Type 2 diabetes mellitus with unspecified complications (5) H/O: CVA (cerebrovascular accident) Code(s): Z86.73 - PRSNL HX OF TIA (TIA), AND CEREB INFRC W/O RESID DEFICITS Status: Chronic Comment: prior left hemiparesis (6) HLD (hyperlipidemia) Code(s): E78.5 - HYPERLIPIDEMIA, UNSPECIFIED Status: Chronic Qualifiers: Hyperlipidemia type: unspecified Qualified Code(s): E78.5 - Hyperlipidemia , unspecified (7) HTN (hypertension) Code(s): I10 - ESSENTIAL (PRIMARY) HYPERTENSION Status: Chronic Qualifiers: Hypertension type: essential hypertension Qualified Code(s): I10 - Essential (primary) hypertension (8) Postoperative anemia Code(s): D64.9 - ANEMIA, UNSPECIFIED Status: Acute (9) h/o right carotid endarterectomy Status: Chronic - Plan await CT brain, neuro consultation -: is on full dose asp -: insulin drip for dm -: off levophed from yesterday -: prognosis guarded * . Review of Systems - Medications/Allergies Allergies/Adverse Reactions: Allergies Allergy/AdvReac Type Severity Reaction Status Date / Time chlorpheniramine polistirex Allergy Mild Verified 09/24/17 06:21 [From Tussionex] cephalexin [From Keflex] Allergy Verified 09/24/17 06:21 hydrocodone polistirex Allergy Verified 09/24/17 06:21 [From Tussionex] propofol AdvReac Nausea Verified 09/24/17 06:21 tussin AdvReac Emesis Uncoded 09/24/17 06:21 Medications: Current Medications Acetaminophen (Tylenol) 650 mg PO Q6H PRN PRN Reason: Headache/Fever Or Mild Pain Hydrocodone Bitart/Acetaminophen ([place] 5/325) 1 tab PO Q4H PRN PRN Reason: Moderate Pain (4-6) Hydrocodone Bitart/Acetaminophen ([place] 5/325) 2 tab PO Q4H PRN PRN Reason: Severe Pain (7-10) Al Hydroxide/Mg Hydroxide (Maalox) 30 ml PO Q4H PRN PRN Reason: Indigestion Aspirin (Aspirin) 325 mg PO DAILY JEMMA Bisacodyl (Dulcolax) 10 mg PO Q12H PRN PRN Reason: Constipation Bisacodyl (Dulcolax) 10 mg IN Q12H PRN PRN Reason: Constipation Dextrose/Water (Dextrose 50%) 25 gm SLOW IVP PRN PRN PRN Reason: PER HYPOGLYCEMIC PROTOCOL Famotidine (Pepcid) 20 mg SLOW IVP 2100 JEMMA Fentanyl (Sublimaze) 25 mcg SLOW IVP Q2H PRN PRN Reason: Moderate Pain (4-6) Stop: 09/29/17 12:47 Last Admin: 09/28/17 01:14 Dose: 25 mcg Fentanyl (Sublimaze) 50 mcg SLOW IVP Q2H PRN PRN Reason: Severe Pain (7-10) Stop: 09/29/17 12:47 Glucagon (Glucagon) 1 mg SC PRN PRN PRN Reason: PER HYPOGLYCEMIC PROTOCOL Guaifenesin/Dextromethorphan (Robitussin Dm) 15 ml PO Q4H PRN PRN Reason: Cough Hydralazine HCl (Apresoline) 10 mg SLOW IVP Q6H PRN PRN Reason: To Maintain SBP< 140mmHG Norepinephrine Bitartrate (Levophed) 250 mls @ 0 mls/hr IVPB PRN PRN; Protocol ; Titrate PRN Reason: To maintain SBP > 90 mmHG Last Admin: 09/27/17 13:08 Dose: 250 mls Nicardipine HCl 25 mg/ Sodium (Chloride) 260 mls @ 0 mls/hr IVPB INF PRN; Protocol; Titrate PRN Reason: To Maintain SBP< 140mmHG Nitroglycerin/Dextrose (Nitroglycerin 50 Mg/250 Ml Bot) 250 mls @ 0 mls/hr IVPB PRN PRN; Protocol; Titrate PRN Reason: To Maintain SBP< 140mmHG Sodium Chloride (Normal Saline 0.9%) 1,000 mls @ 75 mls/hr IV .[id number] JEMMA Last Admin: 09/28/17 02:30 Dose: Not Given Insulin Human Regular 100 (units/ Sodium Chloride) 101 mls @ 0 mls/hr IVPB INF JEMMA; As Directed PRN Reason: Protocol Last Admin: 09/27/17 14:55 Dose: 101 mls Dextrose/Water (D5w) 1,000 mls @ 0 mls/hr IV INF PRN; As Directed PRN Reason: PRN HYPOGLYCEMIC PROTOCOL Insulin Human Regular (Humulin R) 0 units SC Q4H PRN; Protocol PRN Reason: POST OP SLIDING SCALE Morphine Sulfate (Morphine) 2 mg SLOW IVP Q15MIN PRN PRN Reason: Severe Pain (7-10) Last Admin: 09/27/17 17:59 Dose: 2 mg Ondansetron HCl (Zofran) 4 mg IVP Q6H PRN PRN Reason: Nausea/Vomiting Potassium Chloride (Kcl) 20 meq IVPB PRN PRN PRN Reason: K level </= 4.0 Promethazine HCl (Phenergan) 6.25 mg IM Q4H PRN PRN Reason: Nausea/Vomiting Sodium Chloride (Flush - Normal Saline) 10 ml IVF PRN PRN PRN Reason: Saline Flush
--- NOTE | 2017-09-28 13:45 | CT ---
CT HEAD WITHOUT CONTRAST: INDICATIONS: Mental status change. Decreased level of consciousness. COMPARISON: Head CT from 03/05/2012. TECHNIQUE: Multiple axial tomograms obtained through the head without IV enhancement. FINDINGS: The ventricles have normal size and position. No evidence of intracranial mass or hemorrhage. There is no evidence of abnormal edema or cortical lucency; however, there is evidence of subtle sulc al effacement in the left temporal lobe. This could potentially represent early changes of cortical infarct. Recommend MRI to assess for restricted diffusion. IMPRESSION: Evidence of sulcal effacement in the left temporal lobe. This raises the possibility of an early cor tical infarct. Recommend MRI to further evaluate. Dr. Patel was being paged for notification at the time of this dictation. CODE CR POS: LUIS EDUARDO
[2017-09-28] MEDS: Aspirin 325 MG TAB PO SCH (14:28)
[2017-09-28] MEDS ORDERED: Insulin Glargine 25 UNITS in Pre-Filled Syringe 1 EACH SC SCH (14:30)
[2017-09-28] MEDS ORDERED: Propofol 1,000 MG/100 ML VIAL IV ONE (15:49)
[2017-09-28] MEDS: Propofol 1,000 MG/100 ML VIAL IV PRN (15:58)
[2017-09-28] MEDS: Famotidine/PF 20 mg/2ml Vial SLOW IVP SCH (21:40)
[2017-09-28] MEDS: Insulin Regular 300 UNITS/3 ML VIAL SC PRN (21:43)
[2017-09-28] MEDS: Nitroglycerin 50 MG/250 ML BOT 250 ML IVPB PRN (23:16)
--- NOTE | 2017-09-28 23:50 | CON ---
DATE OF CONSULTATION: 09/28/2017 CONSULTING PHYSICIAN: Hospitalist Service. IMPRESSION: Persistent lethargy following coronary artery bypass grafting. Possible new ischemic ev ent. PLAN: 1. MRI of the brain. 2. Continue supportive measures. HISTORY OF PRESENT ILLNESS: Ms. Blair is a 77-year-old white female, who came out of surgery yest erday for CABG. Postoperatively, she was limitedly responsive. The nurses could not really get her to follow any commands. She was moving all 4 extremities. Overnight, she failed to show any improve ment. She did receive some sedation and pain medication since she finished with surgery. Her lab wo rks all looked unremarkable for any metabolic disturbances. She had a CT scan of the brain done, whi ch showed some questionable effacement of the sulci suggesting an acute infarct in the temporal lobe. PAST MEDICAL HISTORY: As per chart. ALLERGIES: As per chart. SOCIAL HISTORY: Unknown. FAMILY HISTORY: Noncontributory. REVIEW OF SYSTEMS: Not obtainable. PHYSICAL EXAMINATION: VITAL SIGNS: Have been stable. She is afebrile. HEENT: Pupils are equal and reactive. Her eyes are in midposition. Doll's head maneuver did not el icit any deviation. She did have a gag response. Her tone appeared to be symmetric and relatively f laccid. Plantar response was equivocal on the right and upgoing on the left. LABORATORY STUDIES: Reviewed. SUMMARY: This is an elderly lady postoperatively from CABG, who is poorly responsive. She appears t o have some brainstem dysfunction suggesting the possibility of a brainstem infarct. We will see wha t the MRI confirms and try to determine a prognosis.
[2017-09-29] MEDS: Sodium Chloride 0.9% 1,000 ML IV SCH (04:40)
[2017-09-29] MEDS: Insulin Regular 300 UNITS/3 ML VIAL SC PRN ×3 (05:09→19:20)
[2017-09-29] MEDS: Propofol 1,000 MG/100 ML VIAL IV PRN ×2 (05:09→21:49)
[2017-09-29 05:22] LABS: Anion Gap 15 mmol/L (10-20); BUN (Urea Nitrogen) 45 mg/dL (9.8-20.1); Calc. Creatinine Clearance 41 mL/min (70-130); Calcium 8.5 mg/dL (7.8-10.44); Carbon Dioxide 20 mmol/L (23-31); Chloride 112 mmol/L (98-107); Estimated GFR-MDRD 32; Glucose 227 mg/dL (83-110); Sodium 143 mmol/L (136-145)
[2017-09-29 05:30] LABS: Band 11 % (5-11); Eosinophils 1 % (0-10); Hemoglobin 7.9 g/dL (12.0-16.0); Lymphocytes 13 % (21-51); MDiff Complete? YES; Mean Corpuscular HGB CONC 33.2 g/dL (32.0-36.0); Mean Corpuscular Hemoglobin 31.2 pg (27.0-31.0); Mean Platelet Volume 7.8 fL (7.4-10.4); Monocytes 7 % (0-10); Neutrophil 68 % (42-75); PLT Morphology Comment Appears Adequate; Platelet Count 267 thou/uL (130-400); RBC Distribution Width 12.1 % (11.5-14.5); Red Blood Cell (RBC) Count 2.53 mill/uL (4.20-5.40); White Blood Cell (WBC) Count 17.7 thou/uL (4.8-10.8)
[2017-09-29] MEDS: Potassium Chloride 20 MEQ/100 ML PREMIX BAG IVPB PRN (06:50)
[2017-09-29] MEDS ORDERED: Metolazone 5 MG TAB PO SCH (07:15)
[2017-09-29] MEDS: Aspirin 325 MG TAB PO SCH (07:55)
[2017-09-29] MEDS: Nitroglycerin 50 MG/250 ML BOT 250 ML IVPB PRN (07:55)
[2017-09-29] MEDS ORDERED: Furosemide 40 MG/4 ML VIAL SLOW IVP SCH (08:00)
--- NOTE | 2017-09-29 08:16 | RAD ---
CHEST 1 VIEW: COMPARISON: 09/28/17. FINDINGS: Redemonstration of an endotracheal tube and bilateral chest tubes. Stable left-sided catheter. Inte rval placement of a nasogastric tube which appears to extend beyond the diaphragm. The distal tip is not included on this exam. Stable configuration of the cardiac silhouette. Persistent opacificatio n of the lung parenchyma with small bilateral effusions. Pneumothorax is not appreciated. Postopera tive sternotomy changes are noted. There appears to be a stable catheter projecting over the cardiac silhouette. IMPRESSION: Interval placement of nasogastric tube. Otherwise, no significant change. POS: [facility]
--- NOTE | 2017-09-29 10:54 | PDOC.PN ---
- Subjective Encounter Start Date: 09/29/17 Encounter Start Time: 10:00 Subjective: on vent, gentle sedation (propofol) -: does not wake up to verbal/touch stimulation -: was moving all extre per staff - Objective MAR Reviewed: Yes Vital Signs & Weight: Vital Signs (12 hours) Temp Pulse Resp BP Pulse Ox 09/29/17 10:17 88 123/68 09/29/17 08:50 97 170/63 H 09/29/17 08:00 99 F 75 20 100 09/29/17 07:03 88 158/63 H 09/29/17 07:00 99 F 09/29/17 06:00 21 H 09/29/17 05:00 98.6 F 09/29/17 04:00 23 H 09/29/17 02:13 102 H 123/62 09/29/17 02:00 26 H 09/29/17 00:00 98.9 F 23 H Weight Admit Weight 196 lb Weight 200 lb 2.876 oz Most Recent Monitor Data Heart Rate from ECG 75 NIBP 125/60 NIBP BP-Mean 74 Respiration from ECG 19 SpO2 100 I&O: 09/28/17 09/29/17 09/30/17 06:59 06:59 06:59 Intake Total 1047 552 100 Output Total 9265 1123 340 [facility] -177 -4318 -225 Result Diagrams: 09/29/17 05:00 09/29/17 05:00 Additional Labs: Accuchecks 09/29/17 09/28/17 09/28/17 04:47 21:39 18:27 POC Glucose 232 H 177 H 132 H 09/28/17 09/28/17 09/28/17 14:16 13:25 12:29 POC Glucose 119 H 133 H 138 H 09/28/17 11:07 POC Glucose 162 H Phys Exam - Physical Examination HEENT: PERRLA, moist MMs Neck: no nodes, no JVD Respiratory: no wheezing, no rales chest tube+ Cardiovascular: RRR, no significant murmur Gastrointestinal: soft, no distention, positive bowel sounds Musculoskeletal: pulses present, edema present Neurological: non-focal Dx/Plan (1) Acute encephalopathy Code(s): G93.40 - ENCEPHALOPATHY, UNSPECIFIED Status: Acute Comment: post cabg, await MRI (2) S/P CABG x 3 Code(s): Z95.1 - PRESENCE OF AORTOCORONARY BYPASS GRAFT Status: Acute Comment: bob to lad, rsvg to obt johnny and rca done on 09/27/2017 (3) Acute kidney injury superimposed on CKD Code(s): N17.9 - ACUTE KIDNEY FAILURE, UNSPECIFIED; N18.9 - CHRONIC KIDNEY DISEASE, UNSPECIFIED Status: Acute (4) CAD (coronary artery disease) Code(s): I25.10 - ATHSCL HEART DISEASE OF [place] CORONARY ARTERY W/O ANG PCTRS Status: Chronic Qualifiers: Coronary Disease-Associated Artery/Lesion type: bypass graft [place] vs. transplanted heart: [place] heart Associated angina: with unstable angina Qualified Code(s): I25.700 - Atherosclerosis of coronary artery bypass graft(s) , unspecified, with unstable angina pectoris (5) DM2 (diabetes mellitus, type 2) Status: Chronic Qualifiers: Diabetes mellitus shelter insulin use: without long winder tender use Diabetes mellitus complication status: with unspecified complications Qualified Code(s) : E11.8 - Type 2 diabetes mellitus with unspecified complications (6) H/O: CVA (cerebrovascular accident) Code(s): Z86.73 - PRSNL HX OF TIA (TIA), AND CEREB INFRC W/O RESID DEFICITS Status: Chronic Comment: prior left hemiparesis per records (7) HLD (hyperlipidemia) Code(s): E78.5 - HYPERLIPIDEMIA, UNSPECIFIED Status: Chronic Qualifiers: Hyperlipidemia type: unspecified Qualified Code(s): E78.5 - Hyperlipidemia , unspecified (8) HTN (hypertension) Code(s): I10 - ESSENTIAL (PRIMARY) HYPERTENSION Status: Chronic Qualifiers: Hypertension type: essential hypertension Qualified Code(s): I10 - Essential (primary) hypertension (9) Postoperative anemia Code(s): D64.9 - ANEMIA, UNSPECIFIED Status: Acute (10) h/o right carotid endarterectomy Status: Chronic - Plan will be going for MRI this am -: is on full dose asp, off pressors, currently on nitro drip with sbp 150's -: transfuse per cts advice, hb around 8g, had 1 chest tube removed this am -: watch for renal function 45/1.5 with mild met acidosis -: will f/u * . Review of Systems - Medications/Allergies Allergies/Adverse Reactions: Allergies Allergy/AdvReac Type Severity Reaction Status Date / Time chlorpheniramine polistirex Allergy Mild Verified 09/24/17 06:21 [From ionex] cephalexin [From Keflex] Allergy Verified 09/24/17 06:21 hydrocodone polistirex Allergy Verified 09/24/17 06:[address] [facility] propofol AdvReac Nausea Verified 09/24/17 06:21 tussin AdvReac Emesis Uncoded 09/24/17 06:21 Medications: Current Medications Acetaminophen (Tylenol) 650 mg PO Q6H PRN PRN Reason: Headache/Fever Or Mild Pain Hydrocodone Bitart/Acetaminophen ([place] 5/325) 1 tab PO Q4H PRN PRN Reason: Moderate Pain (4-6) Hydrocodone Bitart/Acetaminophen ([place] 5/325) 2 tab PO Q4H PRN PRN Reason: Severe Pain (7-10) Al Hydroxide/Mg Hydroxide (Maalox) 30 ml PO Q4H PRN PRN Reason: Indigestion Aspirin (Aspirin) 325 mg PO DAILY [facility] Last Admin: 09/29/17 07:55 Dose: 325 mg Bisacodyl (Dulcolax) 10 mg PO Q12H PRN PRN Reason: Constipation Bisacodyl (Dulcolax) 10 mg MS Q12H PRN PRN Reason: Constipation Dextrose/Water (Dextrose 50%) 25 gm SLOW IVP PRN PRN PRN Reason: PER HYPOGLYCEMIC PROTOCOL Famotidine (Pepcid) 20 mg SLOW IVP 2100 JEMMA Last Admin: 09/28/17 21:40 Dose: 20 mg Fentanyl (Sublimaze) 25 mcg SLOW IVP Q2H PRN PRN Reason: Moderate Pain (4-6) Stop: 09/29/17 12:47 Last Admin: 09/28/17 01:14 Dose: 25 mcg Fentanyl (Sublimaze) 50 mcg SLOW IVP Q2H PRN PRN Reason: Severe Pain (7-10) Stop: 09/29/17 12:47 Furosemide (Lasix) 40 mg SLOW IVP 0800,1400 JEMMA Stop: 09/29/17 14:01 Last Admin: 09/29/17 07:55 Dose: 40 mg Glucagon (Glucagon) 1 mg SC PRN PRN PRN Reason: PER HYPOGLYCEMIC PROTOCOL Guaifenesin/Dextromethorphan (Robitussin Dm) 15 ml PO Q4H PRN PRN Reason: Cough Hydralazine HCl (Apresoline) 10 mg SLOW IVP Q6H PRN PRN Reason: To Maintain SBP< 140mmHG Norepinephrine Bitartrate (Levophed) 250 mls @ 0 mls/hr IVPB PRN PRN; Protocol ; Titrate PRN Reason: To maintain SBP > 90 mmHG Last Admin: 09/27/17 13:08 Dose: 250 mls Nicardipine HCl 25 mg/ Sodium (Chloride) 260 mls @ 0 mls/hr IVPB INF PRN; Protocol; Titrate PRN Reason: To Maintain SBP< 140mmHG Nitroglycerin/Dextrose (Nitroglycerin 50 Mg/250 Ml Bot) 250 mls @ 0 mls/hr IVPB PRN PRN; Protocol; Titrate PRN Reason: To Maintain SBP< 140mmHG Last Admin: 09/29/17 07:55 Dose: 250 mls Sodium Chloride (Normal Saline 0.9%) 1,000 mls @ 75 mls/hr IV .[id number] JEMMA Last Admin: 09/29/17 04:40 Dose: Not Given Dextrose/Water (D5w) 1,000 mls @ 0 mls/hr IV INF PRN; As Directed PRN Reason: PRN HYPOGLYCEMIC PROTOCOL Insulin Human Regular (Humulin R) 0 units SC Q4H PRN; Protocol PRN Reason: POST OP SLIDING SCALE Last Admin: 09/29/17 05:09 Dose: 6 unit Morphine Sulfate (Morphine) 2 mg SLOW IVP Q15MIN PRN PRN Reason: Severe Pain (7-10) Last Admin: 09/29/17 03:05 Dose: 2 mg Ondansetron HCl (Zofran) 4 mg IVP Q6H PRN PRN Reason: Nausea/Vomiting Last Admin: 09/28/17 15:52 Dose: 4 mg Potassium Chloride (Kcl) 20 meq IVPB PRN PRN PRN Reason: K level </= 4.0 Last Admin: 09/29/17 06:50 Dose: 20 meq Promethazine HCl (Phenergan) 6.25 mg IM Q4H PRN PRN Reason: Nausea/Vomiting Propofol (Diprivan) 1,000 mg IV INF PRN; Protocol PRN Reason: Sedation During MRI Stop: 10/28/17 15:49 Last Admin: 09/29/17 05:09 Dose: 1,000 mg Sodium Chloride (Flush - Normal Saline) 10 ml IVF PRN PRN PRN Reason: Saline Flush
--- NOTE | 2017-09-29 13:05 | MRI ---
BRAIN MRI WITHOUT CONTRAST: 09/29/2017 HISTORY: Altered mental status. COMPARISON: None. TECHNIQUE: Multiplanar, multisequence MR imaging of the brain is obtained without contrast. FINDINGS: There are multiple punctate foci of restricted diffusion, consistent with acute infarction, involving the bilateral cerebellar hemispheres. Two to three such subcentimeter foci are noted on the left, a nd five to six such foci are noted on the right. There is no evidence for restricted diffusion withi n the brainstem. There are three to four punctate foci of restricted diffusion within the right frontal lobe, near the vertex. There is a punctate focus of restricted diffusion within the posterior frontoparietal regio n on the left. There is a subcentimeter focus of restricted diffusion in the deep white matter anter iorly, on the right, and in the periventricular white matter on the left. All findings are consisten t with subcentimeter foci of acute infarction. The axial gradient echo imaging demonstrates no evidence for intracranial hemorrhage. No midline shift or mass effect. No ventricular enlargement. Regional bone marrow signal intensity appears grossly unremarkable. There are a few scattered opacified mastoid air cells on the left. The imaged paranasal sinuses and mastoid air cells are otherwise unremarkable. Arterial flow voids at the axial level of the skull ba se appear grossly unremarkable on the T2 weighted imagined. IMPRESSION: Punctate foci of acute infarction noted bilaterally, both infratentorial and supratentorial, evidence of embolic phenomenon. POS: [facility]
--- NOTE | 2017-09-29 13:20 | PRG ---
DATE OF SERVICE: 09/29/2017 SERVICE: Pulmonary Medicine. INTERVAL HISTORY: The patient is doing fine from a respiratory standpoint. We have been able to wea n support off of the ventilator. We sent her for a CT scan yesterday which was abnormal. This promp lupillo an MRI. Because she had a pacer in yesterday, she could not go down for the MRI. That being feliz d, that has been removed today. The MRI is back and demonstrates multiple lesions scattered througho ut bilateral hemispheres as well as cerebellum. She cannot provide any additional element of the his tory. PHYSICAL EXAMINATION: VITAL SIGNS: Afebrile, pulse 89, blood pressure 144/64, respirations 20, saturation 96% on 31% FiO2 and a PEEP of 5. HEENT: Normocephalic, atraumatic. Sclerae are white, conjunctivae pink. Oral mucosa is moist witho ut lesions. LUNGS: Decent air entry. There is no prolonged expiratory phase, wheezing, rhonchi, or crackles pre sent. HEART: Normal rate and regular. ABDOMEN: Soft, nontender, and nondistended. Bowel sounds are positive. MUSCULOSKELETAL: No cyanosis or clubbing. No pitting in the bilateral lower extremities. LABORATORY DATA: WBC 17.7, hemoglobin 7.9, platelets 267,000. Band count is 11% on top of neutrophi l count of 68%. Creatinine 1.58 and stable. BUN 45 and up trending. Basic metabolic profile is oth erwise unremarkable with sodium and chloride that are at upper limits of normal. Urine culture is gr owing E. coli. IMAGING DATA: 1. MRI of the brain demonstrates multifocal areas of infarction. It involves bilateral cerebrum and cerebellum. 2. Chest x-ray demonstrates placement of an enteric catheter. Thoracostomy drains, mediastinal drai ns, endotracheal tube, and central line are all in good position. ASSESSMENT: 1. Acute hypoxic respiratory failure. 2. Non-ST elevation myocardial infarction. 3. Coronary artery disease, severe. 4. Chronic diastolic and valvular heart failure. 5. Coronary artery bypass graft, postop day 2. 6. Cerebrovascular accident. PLAN: We will continue our supportive management. A trial extubation may be considered in 24 hours, particularly if the patient starts to wake up a touch. We will give her a good long sedation holida y to see if she is doing anything purposeful. Hopefully, these neurologic injuries will start to shannon lve and improve through time. If they do not, however, we will have to talk to the patient's family about proceeding with tracheostomy versus comfort measures at some point mid to early next week. Cri tical Care will continue following along. CRITICAL CARE TIME: 30 minutes.
--- NOTE | 2017-09-29 16:16 | PDOC.CTH ---
Cardiology Progress Note - Subjective INtubated sedated. - Objective Vital Signs Temp Pulse Resp BP Pulse Ox 09/29/17 14:23 89 144/75 H 09/29/17 14:00 18 09/29/17 13:23 92 09/29/17 12:00 98.7 F 20 09/29/17 10:17 88 123/68 09/29/17 10:00 14 09/29/17 08:50 97 170/63 H 09/29/17 08:00 99 F 75 20 100 09/29/17 07:03 88 158/63 H 09/29/17 07:00 99 F 09/29/17 06:00 21 H 09/29/17 05:00 98.6 F Admit Weight 196 lb Weight 200 lb 2.876 oz 09/28/17 09/29/17 09/30/17 06:59 06:59 06:59 Intake Total 1047 552 100 Output Total 1618 6225 965 Balance -513 -3047 -998 - Physical Examination General/Neuro: NAD Neck: no JVD present Lungs: CTA Heart: RRR Abdomen: NT/ND, soft Extremities: + femoral B - Labs Result Diagrams: 09/29/17 05:00 09/29/17 05:00 Troponin/CKMB CK-MB (CK-2) 2.1 ng/mL (0-6.6) 09/25/17 11:03 Troponin I 0.245 ng/mL (< 0.028) H 09/25/17 11:03 - Assessment/Plan 1. NQWMI 2. Severe CAD 3. RI 4. Embolic CVA Continue current support. MRI confirmed multi-foci embolic stroke continue propofol On IV nitro gfor BP. Keep at 10-160 Add nicardipine if needed I will be out of the office over the next week. One of my colleagues will follow
[2017-09-29] MEDS: Famotidine/PF 20 mg/2ml Vial SLOW IVP SCH (20:30)
[2017-09-29] MEDS: Sodium Chloride 0.45% 1,000 ML IV SCH (21:51)
[2017-09-30] MEDS: Insulin Regular 300 UNITS/3 ML VIAL SC PRN ×5 (00:13→21:29)
[2017-09-30] MEDS: hydrALAZINE 20 MG/ML VIAL SLOW IVP PRN (01:50)
[2017-09-30 05:29] LABS: Anion Gap 16 mmol/L (10-20); BUN (Urea Nitrogen) 51 mg/dL (9.8-20.1); Calc. Creatinine Clearance 41 mL/min (70-130); Calcium 8.2 mg/dL (7.8-10.44); Carbon Dioxide 25 mmol/L (23-31); Chloride 107 mmol/L (98-107); Estimated GFR-MDRD 32; Glucose 197 mg/dL (83-110); Potassium 3.8 mmol/L (3.5-5.1); Sodium 144 mmol/L (136-145)
[2017-09-30 06:14] LABS: Band 5 % (5-11); Eosinophils 2 % (0-10); Hemoglobin 8.3 g/dL (12.0-16.0); Lymphocytes 17 % (21-51); MDiff Complete? YES; Mean Corpuscular HGB CONC 32.2 g/dL (32.0-36.0); Mean Corpuscular Hemoglobin 30.7 pg (27.0-31.0); Mean Corpuscular Volume 95.2 fL (78.0-98.0); Mean Platelet Volume 7.7 fL (7.4-10.4); Monocytes 9 % (0-10); Neutrophil 67 % (42-75); Nucleated RBC 2 % (0); PLT Morphology Comment Appears Adequate; Platelet Count 281 thou/uL (130-400); RBC Distribution Width 12.4 % (11.5-14.5); Red Blood Cell (RBC) Count 2.71 mill/uL (4.20-5.40); White Blood Cell (WBC) Count 18.3 thou/uL (4.8-10.8)
[2017-09-30] MEDS: Potassium Chloride 20 MEQ/100 ML PREMIX BAG IVPB PRN (06:28)
[2017-09-30] MEDS: Propofol 1,000 MG/100 ML VIAL IV PRN (06:29)
--- NOTE | 2017-09-30 08:12 | RAD ---
PORTABLE CHEST: Date: 09/30/17 INDICATION: Follow-up sternotomy. Postop follow-up. COMPARISON: 09/29/17. FINDINGS: ET tube and NG tube remain in place. Central line is unchanged. Bilateral chest tubes are unchanged. Left basilar opacification consistent with infiltrate and/or atelectasis. Hazy atelectasis and/or inf iltrate in the right lung base is less prominent today. Upper lung zones remain clear. Small effusion s cannot be excluded. IMPRESSION: Continued evidence of bibasilar atelectasis and/or infiltrate. POS: [facility]
[2017-09-30] MEDS: Aspirin 325 MG TAB PO SCH (09:21)
--- NOTE | 2017-09-30 11:01 | PRG ---
DATE OF SERVICE: 09/30/2017 SERVICE: Pulmonary Medicine. INTERVAL HISTORY: The patient is still not really waking up. That being said, she is demonstrating a little bit more activity. She is moving spontaneously all 4 extremities. She is overbreathing the ventilator. She will have cough and gag. She does withdraw from noxious stimuli in the bilateral l ower extremities, and right upper extremity. That being said, she is spontaneously moving the left a rm. There were no events overnight. She cannot register any complaints or issues at this time given her current status. PHYSICAL EXAMINATION: VITAL SIGNS: Afebrile, pulse 103, blood pressure 151/73, respirations 26, saturation 95% on 31% FiO2 . GENERAL: The patient is intubated. She is under the influence of little bit of sedation, which will be discontinued. HEENT: Normocephalic, atraumatic. Sclerae are white, conjunctivae pink. Oral and nasal mucosa is m oist without lesions. LUNGS: Decent air entry. There is no prolonged expiratory phase or wheezing present. HEART: Normal rate, regular. ABDOMEN: Soft, nontender, nondistended. Bowel sounds are positive. MUSCULOSKELETAL: No cyanosis or clubbing. No pitting in the bilateral lower extremities. NEUROLOGIC: Grossly nonfocal. LABORATORY DATA: WBC 18.3, hemoglobin 8.3, platelets 281,000. INR 1.4. Creatinine 1.58. Basic met abolic profile is otherwise unremarkable. Sodium 144. E. coli is growing in the urine. IMAGING: Chest x-ray demonstrates parenchymal abnormality, possibly consistent with atelectasis vers us infiltrate. Bilateral thoracostomy tubes, central line, and endotracheal tube are essentially unc hanged. ASSESSMENT: 1. Acute hypoxic respiratory failure. 2. Non-ST elevation myocardial infarction. 3. Coronary artery disease, severe. 4. Coronary artery bypass graft, postoperative day #3. 5. Cerebrovascular accident, likely embolic. 6. Chronic diastolic and valvular heart failure, currently euvolemic. PLAN: We will continue supportive care. Hopefully, the patient's brain will start to wake up from t hese multiple foci of stroke. If she becomes more appropriate, we will consider extubation. If she fails to make any significant progress through the weekend, we will talk to the patient's family abou t transitioning over to comfort care only. Even at baseline, the patient was not really a good rehab ilitation candidate based on what the family is suggesting. CRITICAL CARE TIME: 30 minutes.
--- NOTE | 2017-09-30 13:32 | PDOC.CTH ---
Cardiology Progress Note - Subjective Remains intubated. On sedation holiday at this time but not following commands . - Objective Vital Signs Temp Pulse Pulse Pulse Resp BP BP 09/30/17 12:00 21 H 09/30/17 11:21 103 H 09/30/17 11:00 99.1 F 09/30/17 10:00 21 H 09/30/17 09:25 103 H 151/73 H 09/30/17 08:35 103 H 107 H 157/73 H 09/30/17 08:00 99.1 F 106 H 32 H 09/30/17 07:00 98.8 F 09/30/17 06:50 102 H 114/67 09/30/17 06:00 22 H 09/30/17 04:00 99 F 22 H 09/30/17 02:34 108 H 09/30/17 02:00 21 H 09/30/17 01:50 95 150/81 H Pulse Ox Pulse Ox Pulse Ox 09/30/17 12:00 09/30/17 11:21 09/30/17 11:00 09/30/17 10:00 09/30/17 09:25 09/30/17 08:35 95 94 L 09/30/17 08:00 96 09/30/17 07:00 09/30/17 06:50 09/30/17 06:00 09/30/17 04:00 09/30/17 02:34 09/30/17 02:00 09/30/17 01:50 Admit Weight 196 lb Weight 198 lb 13.711 oz 09/29/17 09/30/17 10/01/17 06:59 06:59 06:59 Intake Total 552 1153 120 Output Total 2641 3115 870 Balance -2599 -5595 -058 - Physical Examination General/Neuro: other: (Sedtaed, intubated.) Neck: no JVD present Lungs: CTA Heart: RRR Abdomen: NT/ND Extremities: + edema B (1+) - Telemetry Telemetry Rhythm: NSR - Labs Result Diagrams: 09/30/17 05:05 09/30/17 05:05 Troponin/CKMB CK-MB (CK-2) 2.1 ng/mL (0-6.6) 09/25/17 11:03 Troponin I 0.245 ng/mL (< 0.028) H 09/25/17 11:03 - Assessment/Plan 1. NSTEMI 2. Severe multivessel CAD 3. S/P CABG 4. Embolic CVA PLAN: - Continue supportive care. - BP well controlled. - Continue supportive care. - Prognosis guarded.
--- NOTE | 2017-09-30 20:09 | PDOC.PN ---
- Subjective Encounter Start Date: 09/30/17 Encounter Start Time: 19:35 Subjective: f/u for acute resp failure on mech vent, embolic CVA's bilat and s/p -: CABG POD #3. Remains agitated with spontaneous movements of ext's -: Sedation off to assess for mentation. - Objective MAR Reviewed: Yes Vital Signs & Weight: Vital Signs (12 hours) Temp Pulse Pulse Pulse Resp BP BP 09/30/17 19:04 103 H 09/30/17 18:00 99.0 F 29 H 09/30/17 16:00 27 H 09/30/17 14:30 105 H 168/84 H 09/30/17 14:00 24 H 09/30/17 12:00 21 H 09/30/17 11:21 103 H 09/30/17 11:00 99.1 F 09/30/17 10:00 21 H 09/30/17 09:25 103 H 151/73 H 09/30/17 08:35 103 H 107 H 157/73 H Pulse Ox Pulse Ox 09/30/17 19:04 09/30/17 18:00 09/30/17 16:00 09/30/17 14:30 09/30/17 14:00 09/30/17 12:00 09/30/17 11:21 09/30/17 11:00 09/30/17 10:00 09/30/17 09:25 09/30/17 08:35 95 94 L Weight Admit Weight 196 lb 10.437 oz Weight 198 lb 13.711 oz Most Recent Monitor Data Heart Rate from ECG 106 NIBP 168/79 NIBP BP-Mean 99 Respiration from ECG 34 SpO2 94 I&O: 09/29/17 09/30/17 10/01/17 06:59 06:59 06:59 Intake Total 552 1153 819 Output Total 7783 4635 0818 Balance -7771 -9909 -578 Result Diagrams: 09/30/17 05:05 09/30/17 05:05 Additional Labs: Accuchecks 09/30/17 09/30/17 09/30/17 17:58 12:28 05:37 POC Glucose 186 H 243 H 213 H 09/30/17 00:09 POC Glucose 189 H Microbiology 09/24/17 09:37 Urine clean catch Urine Culture - Final Escherichia coli Laboratory Tests 09/27/17 09/27/17 09/28/17 13:16 18:49 04:40 WBC 22.0 H Hgb 9.3 L 9.1 L Creatinine 1.58 H 09/28/17 09/29/17 09/29/17 04:40 05:00 05:00 WBC 14.5 H 17.7 H Hgb 8.7 L 7.9 L Creatinine 1.58 H Radiology Reviewed by me: Yes (MRI brain - multiple foci embolic infarcts bilat) EKG Reviewed by me: Yes (Tele - SR) Phys Exam - Physical Examination [facility] vent, moves head and extremities randomly ETT in place HEENT: sclera anicteric, oral pharynx no lesions Neck: no nodes, no JVD, supple, full ROM occasional coarse sounds in bases S1, S2 Cardiovascular: RRR, no significant murmur, no rub, gallop Gastrointestinal: soft, non-tender, no distention, positive bowel sounds Musculoskeletal: pulses present, edema present does not follow commands Neurological: moves all 4 limbs Skin: no rash, normal turgor, cap refill <2 seconds Deviation from normal: Mcelroy with linda urine Dx/Plan (1) Cerebrovascular accident, embolic Code(s): I63.9 - CEREBRAL INFARCTION, UNSPECIFIED Status: Acute Qualifiers: Laterality of affected vessel: bilateral Comment: Continue ASA 325mg daily (2) Acute encephalopathy Code(s): G93.40 - ENCEPHALOPATHY, UNSPECIFIED Status: Acute Comment: Likely multifactorial to include embolic CVA, monitor clinical response (3) Acute respiratory failure with hypoxia Code(s): J96.01 - ACUTE RESPIRATORY FAILURE WITH HYPOXIA Status: Acute Comment: Wean off [facility] ventilation as clinically indicated, sedation off (4) Postoperative anemia Code(s): D64.9 - ANEMIA, UNSPECIFIED Status: Acute Comment: Stable currently , monitor H/H trend (5) S/P CABG x 3 Code(s): Z95.1 - PRESENCE OF AORTOCORONARY BYPASS GRAFT Status: Acute Comment: bob to lad, rsvg to obt johnny and rca done on 09/27/2017, POD #3 (6) UTI (urinary tract infection) Status: Acute Comment: E. coli, tx with Levaquin - Plan PT/OT, executive secretary social welfare, speech therapy, respiratory therapy, DVT proph w/SCDs Continue supportive mgmt -: Wean off mech ventilation as clinically indicated -: Sedation d/c -: Continue ASA 325mg daily -: AM lab: BMP, CBC, Lipid panel * .
[2017-09-30] MEDS: HYDROcodone/Acetaminophen 5/325 mg Tablet PO PRN (22:31)
[2017-09-30] MEDS: Famotidine 20 MG TAB PO SCH (22:32)
[2017-10-01] MEDS: Sodium Chloride 0.45% 1,000 ML IV SCH (03:12)
[2017-10-01] MEDS: HYDROcodone/Acetaminophen 5/325 mg Tablet PO PRN ×3 (04:08→20:54)
[2017-10-01 04:36] LABS: Anion Gap 12 mmol/L (10-20); BUN (Urea Nitrogen) 48 mg/dL (9.8-20.1); Calc. Creatinine Clearance 52 mL/min (70-130); Calcium 8.4 mg/dL (7.8-10.44); Carbon Dioxide 30 mmol/L (23-31); Cardiac Risk 7.1 (Less than 4.5); Chloride 106 mmol/L (98-107); Cholesterol 114 mg/dl (< 200 Desired); Estimated GFR-MDRD 41; Glucose 198 mg/dL (83-110); HDL Cholesterol 16 mg/dL (>60 Neg Risk); LDL Cholesterol, Calculated 57 mg/dL; Potassium 3.6 mmol/L (3.5-5.1); Sodium 144 mmol/L (136-145); Triglycerides 206 mg/dL (Less than 150)
[2017-10-01 04:42] LABS: Band 19 % (5-11); Hemoglobin 8.8 g/dL (12.0-16.0); Lymphocytes 15 % (21-51); MDiff Complete? YES; Mean Corpuscular HGB CONC 32.2 g/dL (32.0-36.0); Mean Corpuscular Hemoglobin 30.5 pg (27.0-31.0); Mean Corpuscular Volume 94.8 fL (78.0-98.0); Mean Platelet Volume 7.7 fL (7.4-10.4); Monocytes 6 % (0-10); Neutrophil 60 % (42-75); Nucleated RBC 3 % (0); PLT Morphology Comment Appears Adequate; Platelet Count 315 thou/uL (130-400); RBC Distribution Width 12.2 % (11.5-14.5); Red Blood Cell (RBC) Count 2.88 mill/uL (4.20-5.40); White Blood Cell (WBC) Count 18.1 thou/uL (4.8-10.8)
[2017-10-01] MEDS: Potassium Chloride 20 MEQ/100 ML PREMIX BAG IVPB PRN (05:27)
[2017-10-01] MEDS: Insulin Regular 300 UNITS/3 ML VIAL SC PRN ×3 (05:29→17:56)
[2017-10-01] MEDS: Aspirin 325 MG TAB PO SCH (08:47)
--- NOTE | 2017-10-01 12:02 | PRG ---
DATE OF SERVICE: 10/01/2017 SUBJECTIVE: This morning, she is on a CPAP, appears to be in no distress. OBJECTIVE: VITAL SIGNS: Blood pressure is 131/61, pulse is 93, sats 96% on 31% FiO2, respiration 19. GENERAL: She is awake. She appears to be encephalopathic. CHEST: Reveals minimal rhonchi. CARDIAC: Normal S1, S2, no gallops. ABDOMEN: Soft, no masses. LABORATORY DATA: White count 18,000, H&H is 8 and 27, platelet count 315, creatinine 1.26. IMAGING: X-ray from yesterday shows bilateral infiltrates, bilateral chest tubes. IMPRESSION: Respiratory failure, myocardial infarction, coronary artery disease, status post coronar y artery bypass graft, cerebrovascular accident, diastolic dysfunction, abnormal chest x-ray and sherri l failure. PLAN: Continue CPAP. She is allowed to be extubated until she is more awake, more responsive . Continue aggressive PT and supportive care. May consider initiating antibiotics tomorrow with pers istent white count and low grade fever at 99.5. We will follow. One-half hour critical care time.
--- NOTE | 2017-10-01 12:43 | EKG ---
Test Reason : Blood Pressure : / mmHG Vent. Rate : 083 BPM Atrial Rate : 083 BPM P-R Int : 134 ms QRS Dur : 088 ms QT Int : 394 ms P-R-T Axes : 062 048 012 degrees QTc Int : 462 ms Sinus rhythm with Premature supraventricular complexes with occasional Premature ventricular complexe s Nonspecific ST abnormality Abnormal ECG Confirmed by FLACO HAN, SIVA ([id number]), advertising editor BUDDY CHIN ([id number]) on 10/01/2017 12:42:29 PM Referred By: Confirmed By:SIVA SAM MD
--- NOTE | 2017-10-01 13:12 | PDOC.PN ---
- Subjective Encounter Start Date: 10/01/17 Encounter Start Time: 07:20 Subjective: is more awake this am, on repeated verbal stimuli follows some of it -: is moving all extre per staff -: on vent - Objective MAR Reviewed: Yes Vital Signs & Weight: Vital Signs (12 hours) Temp Pulse Resp BP 10/01/17 11:32 100 157/74 H 10/01/17 08:00 98.7 F 10/01/17 07:59 14 10/01/17 07:06 101 H 131/66 10/01/17 06:00 17 10/01/17 04:00 99.5 F 17 10/01/17 02:05 98 10/01/17 02:00 16 Weight Admit Weight 196 lb 10.437 oz Weight 196 lb 3.382 oz Most Recent Monitor Data Heart Rate from ECG 98 NIBP 176/85 NIBP BP-Mean 103 Respiration from ECG 16 SpO2 97 I&O: 09/30/17 10/01/17 10/02/17 06:59 06:59 06:59 Intake Total 1153 2264 200 Output Total 3115 3008 255 Balance -1962 -744 -55 Result Diagrams: 10/01/17 04:15 10/01/17 04:15 Additional Labs: Accuchecks 09/30/17 09/30/17 21:28 17:58 POC Glucose 189 H 186 H Phys Exam - Physical Examination HEENT: PERRLA, sclera anicteric Neck: no JVD, supple Respiratory: no wheezing, no rales chest + Cardiovascular: RRR, no significant murmur Gastrointestinal: soft, no distention, positive bowel sounds Musculoskeletal: pulses present, edema present Neurological: non-focal, moves all 4 limbs Dx/Plan (1) Cerebrovascular accident, embolic Code(s): I63.9 - CEREBRAL INFARCTION, UNSPECIFIED Status: Acute Qualifiers: Laterality of affected vessel: bilateral Comment: Continue ASA 325mg daily (2) Acute encephalopathy Code(s): G93.40 - ENCEPHALOPATHY, UNSPECIFIED Status: Acute Comment: Likely multifactorial to include embolic CVA, monitor clinical response (3) S/P CABG x 3 Code(s): Z95.1 - PRESENCE OF AORTOCORONARY BYPASS GRAFT Status: Acute Comment: bob to lad, rsvg to obt johnny and rca done on 09/27/2017, POD #3 (4) Acute kidney injury superimposed on CKD Code(s): N17.9 - ACUTE KIDNEY FAILURE, UNSPECIFIED; N18.9 - CHRONIC KIDNEY DISEASE, UNSPECIFIED Status: Acute (5) CAD (coronary artery disease) Code(s): I25.10 - ATHSCL HEART DISEASE OF [place] CORONARY ARTERY W/O ANG PCTRS Status: Chronic Qualifiers: Coronary Disease-Associated Artery/Lesion type: bypass graft [place] vs. transplanted heart: [place] heart Associated angina: with unstable angina Qualified Code(s): I25.700 - Atherosclerosis of coronary artery bypass graft(s) , unspecified, with unstable angina pectoris (6) DM2 (diabetes mellitus, type 2) Status: Chronic Qualifiers: Diabetes mellitus intermediate insulin use: without intermediate use Diabetes mellitus complication status: with unspecified complications Qualified Code(s) : E11.8 - Type 2 diabetes mellitus with unspecified complications (7) H/O: CVA (cerebrovascular accident) Code(s): Z86.73 - PRSNL HX OF TIA (TIA), AND CEREB INFRC W/O RESID DEFICITS Status: Chronic Comment: prior left hemiparesis per records (8) HLD (hyperlipidemia) Code(s): E78.5 - HYPERLIPIDEMIA, UNSPECIFIED Status: Chronic Qualifiers: Hyperlipidemia type: unspecified Qualified Code(s): E78.5 - Hyperlipidemia , unspecified (9) HTN (hypertension) Code(s): I10 - ESSENTIAL (PRIMARY) HYPERTENSION Status: Chronic Qualifiers: Hypertension type: essential hypertension Qualified Code(s): I10 - Essential (primary) hypertension (10) Postoperative anemia Code(s): D64.9 - ANEMIA, UNSPECIFIED Status: Acute Comment: Stable currently , monitor H/H trend (11) h/o right carotid endarterectomy Status: Chronic - Plan on asp full dose -: weaning per pulm advice -: has chest tubes in place -: ng feeding -: will add lipitor * . Review of Systems - Medications/Allergies Allergies/Adverse Reactions: Allergies Allergy/AdvReac Type Severity Reaction Status Date / Time chlorpheniramine polistirex Allergy Mild Verified 09/24/17 06:21 [From Tussionex] cephalexin [From Keflex] Allergy Verified 09/24/17 06:21 hydrocodone polistirex Allergy Verified 09/24/17 06:21 [From Tussionex] propofol AdvReac Nausea Verified 09/24/17 06:21 tussin AdvReac Emesis Uncoded 09/24/17 06:21 Medications: Current Medications Acetaminophen (Tylenol) 650 mg PO Q6H PRN PRN Reason: Headache/Fever Or Mild Pain Hydrocodone Bitart/Acetaminophen ([place] 5/325) 1 tab PO Q4H PRN PRN Reason: Moderate Pain (4-6) Hydrocodone Bitart/Acetaminophen ([place] 5/325) 2 tab PO Q4H PRN PRN Reason: Severe Pain (7-10) Last Admin: 10/01/17 04:08 Dose: 2 tab Al Hydroxide/Mg Hydroxide (Maalox) 30 ml PO Q4H PRN PRN Reason: Indigestion Aspirin (Aspirin) 325 mg PO DAILY [facility] Last Admin: 10/01/17 08:47 Dose: 325 mg Bisacodyl (Dulcolax) 10 mg PO Q12H PRN PRN Reason: Constipation Bisacodyl (Dulcolax) 10 mg [place] Q12H PRN PRN Reason: Constipation Dextrose/Water (Dextrose 50%) 25 gm SLOW IVP PRN PRN PRN Reason: PER HYPOGLYCEMIC PROTOCOL Famotidine (Pepcid) 20 mg PO 2100 [facility] Last Admin: 09/30/17 22:32 Dose: 20 mg Glucagon (Glucagon) 1 mg SC PRN PRN PRN Reason: PER HYPOGLYCEMIC PROTOCOL Hydralazine HCl (Apresoline) 10 mg SLOW IVP Q6H PRN PRN Reason: To Maintain SBP< 140mmHG Last Admin: 09/30/17 01:50 Dose: 10 mg Dextrose/Water (D5w) 1,000 mls @ 0 mls/hr IV INF PRN; As Directed PRN Reason: PRN HYPOGLYCEMIC PROTOCOL Sodium Chloride (1/2 Normal Saline) 1,000 mls @ 25 mls/hr IV .Q24H [facility] Last Admin: 10/01/17 03:12 Dose: 1,000 mls Insulin Human Regular (Humulin R) 0 units SC Q4H PRN; Protocol PRN Reason: POST OP SLIDING SCALE Last Admin: 10/01/17 05:29 Dose: 4 unit Labetalol HCl (Normodyne) 20 mg SLOW IVP Q15MIN PRN PRN Reason: SBP Greater Than 180 Ondansetron HCl (Zofran) 4 mg IVP Q6H PRN PRN Reason: Nausea/Vomiting Last Admin: 09/28/17 15:52 Dose: 4 mg Potassium Chloride (Kcl) 20 meq IVPB PRN PRN PRN Reason: K level </= 4.0 Last Admin: 10/01/17 05:27 Dose: 20 meq Promethazine HCl (Phenergan) 6.25 mg IM Q4H PRN PRN Reason: Nausea/Vomiting Sodium Chloride (Flush - Normal Saline) 10 ml IVF PRN PRN PRN Reason: Saline Flush
[2017-10-01] MEDS: Labetalol HCl 100 MG/20 ML VIAL SLOW IVP PRN (16:09)
[2017-10-01] MEDS ORDERED: Lorazepam 2 MG/ML VIAL SLOW IVP PRN (17:09)
[2017-10-01] MEDS: Atorvastatin Calcium 10 MG TAB PO SCH (20:54)
[2017-10-01] MEDS: Famotidine 20 MG TAB PO SCH (20:54)
[2017-10-02] MEDS: Sodium Chloride 0.45% 1,000 ML IV SCH ×2 (03:44→22:45)
[2017-10-02] MEDS: HYDROcodone/Acetaminophen 5/325 mg Tablet PO PRN (04:50)
[2017-10-02 05:11] LABS: Anion Gap 11 mmol/L (10-20); BUN (Urea Nitrogen) 41 mg/dL (9.8-20.1); Calc. Creatinine Clearance 62 mL/min (70-130); Calcium 8.5 mg/dL (7.8-10.44); Carbon Dioxide 32 mmol/L (23-31); Chloride 104 mmol/L (98-107); Estimated GFR-MDRD 51; Glucose 191 mg/dL (83-110); Potassium 3.6 mmol/L (3.5-5.1); Sodium 143 mmol/L (136-145)
[2017-10-02 05:17] LABS: Hemoglobin 8.8 g/dL (12.0-16.0); Mean Corpuscular HGB CONC 32.7 g/dL (32.0-36.0); Mean Corpuscular Hemoglobin 31.1 pg (27.0-31.0); Mean Corpuscular Volume 95.1 fL (78.0-98.0); Mean Platelet Volume 7.7 fL (7.4-10.4); Platelet Count 342 thou/uL (130-400); RBC Distribution Width 12.4 % (11.5-14.5); Red Blood Cell (RBC) Count 2.84 mill/uL (4.20-5.40); White Blood Cell (WBC) Count 18.5 thou/uL (4.8-10.8)
[2017-10-02 05:18] LABS: Band 20 % (5-11); Eosinophils 3 % (0-10); Lymphocytes 12 % (21-51); MDiff Complete? YES; Metamyelocyte 3 % (0-0); Monocytes 7 % (0-10); Neutrophil 55 % (42-75); Nucleated RBC 2 % (0); PLT Morphology Comment Appears Adequate
[2017-10-02] MEDS: Insulin Regular 300 UNITS/3 ML VIAL SC PRN (05:33)
[2017-10-02] MEDS: Potassium Chloride 20 MEQ/100 ML PREMIX BAG IVPB PRN (05:39)
[2017-10-02] MEDS ORDERED: DC Sedation Protocol FS ONE (07:55)
[2017-10-02] MEDS ORDERED: Eucerin (Mineral Oil/Petrolatum,White) 30 gm Jar TOP PRN (09:11)
[2017-10-02] MEDS: Aspirin 325 MG TAB PO SCH (09:11)
[2017-10-02] MEDS ORDERED: Milk Of Magnesia 30 ML UDCUP PO PRN (09:11)
[2017-10-02] MEDS ORDERED: Ondansetron ODT 4 MG TAB PO PRN (09:11)
[2017-10-02] MEDS ORDERED: Chloraseptic Spray 180 ml Bottle PO PRN (09:11)
[2017-10-02] MEDS ORDERED: Diabetic Tussin 200 MG/10 ML UDCUP PO PRN (09:11)
[2017-10-02] MEDS ORDERED: Loperamide HCl 2 MG CAP PO PRN (09:11)
[2017-10-02] MEDS ORDERED: Artificial Tears 18 DROP/0.9 ML EA EYE PRN (09:11)
[2017-10-02] MEDS ORDERED: Sodium Chloride 0.65% Nasal 44 ML BOT EA NARE PRN (09:11)
--- NOTE | 2017-10-02 12:03 | PDOC.PN ---
- Subjective Encounter Start Date: 10/02/17 Encounter Start Time: 09:15 -: old records requested/rev pt is extubated this morning, daughter was present bedside - Objective MAR Reviewed: Yes Vital Signs & Weight: Vital Signs (12 hours) Temp Pulse Resp Pulse Ox 10/02/17 11:00 97.5 F L 10/02/17 08:15 99.1 F 129 H 15 10/02/17 08:10 129 H 15 98 10/02/17 08:00 99.1 F 10/02/17 06:00 98.8 F 16 10/02/17 04:00 19 10/02/17 03:32 103 H 10/02/17 02:00 24 H Weight Admit Weight 196 lb 10.437 oz Weight 196 lb 3.382 oz Most Recent Monitor Data Heart Rate from ECG 92 NIBP 160/74 NIBP BP-Mean 101 Respiration from ECG 15 SpO2 100 I&O: 10/01/17 10/02/17 10/03/17 06:59 06:59 06:59 Intake Total 226 2028 223 Output Total 1208 2307 475 [facility] -744 -279 -252 Result Diagrams: 10/02/17 04:50 10/02/17 04:50 Additional Labs: Accuchecks 10/02/17 10/02/17 10/01/17 09:55 00:09 17:49 POC Glucose 177 H 163 H 207 H 10/01/17 14:14 POC Glucose 223 H Radiology Reviewed by me: Yes EKG Reviewed by me: Yes (tachycardia) Phys Exam - Physical Examination Constitutional: NAD HEENT: PERRLA, sclera anicteric Neck: no JVD, supple Respiratory: no wheezing, no rhonchi reduced air entry Cardiovascular: RRR, no significant murmur, no rub Gastrointestinal: soft, non-tender, no distention, positive bowel sounds Musculoskeletal: no edema, pulses present surgical site clean pt has left side weakness Lymphatic: no nodes Psychiatric: normal affect Skin: no rash, normal turgor Dx/Plan (1) Acute encephalopathy Code(s): G93.40 - ENCEPHALOPATHY, UNSPECIFIED Status: Acute Comment: Likely multifactorial to include embolic CVA, monitor clinical response (2) Acute kidney injury superimposed on CKD Code(s): N17.9 - ACUTE KIDNEY FAILURE, UNSPECIFIED; N18.9 - CHRONIC KIDNEY DISEASE, UNSPECIFIED Status: Acute (3) Acute respiratory failure with hypoxia Code(s): J96.01 - ACUTE RESPIRATORY FAILURE WITH HYPOXIA Status: Acute Comment: [facility], sedation off (4) Cellulitis of foot Code(s): L03.119 - CELLULITIS OF UNSPECIFIED PART OF LIMB Status: Acute Comment: on Augmentin (5) Cerebrovascular accident, embolic Code(s): I63.9 - CEREBRAL INFARCTION, UNSPECIFIED Status: Acute Qualifiers: Laterality of affected vessel: bilateral Comment: Continue ASA 325mg daily (6) Postoperative anemia Code(s): D64.9 - ANEMIA, UNSPECIFIED Status: Acute Comment: Stable currently , monitor H/H trend (7) S/P CABG x 3 Code(s): Z95.1 - PRESENCE OF AORTOCORONARY BYPASS GRAFT Status: Acute Comment: bob to lad, rsvg to obt johnny and rca done on 09/27/2017, POD #3 (8) UTI (urinary tract infection) Status: Acute Comment: E. coli, tx with Levaquin (9) Uncontrolled hypertension Code(s): I10 - ESSENTIAL (PRIMARY) HYPERTENSION Status: Acute (10) Unstable angina Status: Acute (11) CAD (coronary artery disease) Code(s): I25.10 - ATHSCL HEART DISEASE OF [place] CORONARY ARTERY W/O ANG PCTRS Status: Chronic Qualifiers: Coronary Disease-Associated Artery/Lesion type: bypass graft [place] vs. transplanted heart: [place] heart Associated angina: with unstable angina Qualified Code(s): I25.700 - Atherosclerosis of coronary artery bypass graft(s) , unspecified, with unstable angina pectoris (12) DM2 (diabetes mellitus, type 2) Status: Chronic Qualifiers: Diabetes mellitus snf insulin use: without snf use Diabetes mellitus complication status: with unspecified complications Qualified Code(s) : E11.8 - Type 2 diabetes mellitus with unspecified complications (13) H/O carotid endarterectomy Code(s): Z98.890 - OTHER SPECIFIED POSTPROCEDURAL STATES Status: Chronic (14) H/O: CVA (cerebrovascular accident) Code(s): Z86.73 - PRSNL HX OF TIA (TIA), AND CEREB INFRC W/O RESID DEFICITS Status: Chronic Comment: prior left hemiparesis per records (15) HLD (hyperlipidemia) Code(s): E78.5 - HYPERLIPIDEMIA, UNSPECIFIED Status: Chronic Qualifiers: Hyperlipidemia type: unspecified Qualified Code(s): E78.5 - Hyperlipidemia , unspecified (16) HTN (hypertension) Code(s): I10 - ESSENTIAL (PRIMARY) HYPERTENSION Status: Chronic Qualifiers: Hypertension type: essential hypertension Qualified Code(s): I10 - Essential (primary) hypertension - Plan cont current plan of care, plan discussed w/ family, continue antibiotics, PT/OT , social group worker * monitor in ccu today * speech therapy * continue levaquin * medication reviewed as below * symptomatic treatment * pulmonary, cardiology, Ct surgeon following * updated plan to daughter. Review of Systems - Review of Systems Other: unable to review due to her level of cognitive status - Medications/Allergies Allergies/Adverse Reactions: Allergies Allergy/AdvReac Type Severity Reaction Status Date / Time chlorpheniramine polistirex Allergy Mild Verified 09/24/17 06:21 [From Tussionex] cephalexin [From Keflex] Allergy Verified 09/24/17 06:21 hydrocodone polistirex Allergy Verified 09/24/17 06:21 [From Tussionex] propofol AdvReac Nausea Verified 09/24/17 06:21 tussin AdvReac Emesis Uncoded 09/24/17 06:21 Medications: Current Medications Acetaminophen (Tylenol) 650 mg PO Q6H PRN PRN Reason: Headache/Fever Or Mild Pain Hydrocodone Bitart/Acetaminophen ([place] 5/325) 1 tab PO Q4H PRN PRN Reason: Moderate Pain (4-6) Hydrocodone Bitart/Acetaminophen ([place] 5/325) 2 tab PO Q4H PRN PRN Reason: Severe Pain (7-10) Last Admin: 10/02/17 04:50 Dose: 2 tab Al Hydroxide/Mg Hydroxide (Maalox) 30 ml PO Q4H PRN PRN Reason: Indigestion Artificial Tears (Tears Naturale) 0 drop EA EYE PRN PRN PRN Reason: Dry Eyes Aspirin (Aspirin) 325 mg PO DAILY [facility] Last Admin: 10/02/17 09:11 Dose: Not Given Atorvastatin Calcium (Lipitor) 10 mg PO HS [facility] Last Admin: 10/01/17 20:54 Dose: 10 mg Bisacodyl (Dulcolax) 10 mg PO Q12H PRN PRN Reason: Constipation Bisacodyl (Dulcolax) 10 mg DE Q12H PRN PRN Reason: Constipation Dextrose/Water (Dextrose 50%) 25 gm SLOW IVP PRN PRN PRN Reason: PER HYPOGLYCEMIC PROTOCOL Famotidine (Pepcid) 20 mg PO 2100 [facility] Last Admin: 10/01/17 20:54 Dose: 20 mg Glucagon (Glucagon) 1 mg SC PRN PRN PRN Reason: PER HYPOGLYCEMIC PROTOCOL Guaifenesin (Robitussin Sf) 200 mg PO Q4H PRN PRN Reason: Cough Hydralazine HCl (Apresoline) 10 mg SLOW IVP Q6H PRN PRN Reason: To Maintain SBP< 140mmHG Last Admin: 09/30/17 01:50 Dose: 10 mg Dextrose/Water (D5w) 1,000 mls @ 0 mls/hr IV INF PRN; As Directed PRN Reason: PRN HYPOGLYCEMIC PROTOCOL Sodium Chloride (1/2 Normal Saline) 1,000 mls @ 25 mls/hr IV .Q24H [facility] Last Admin: 10/02/17 03:44 Dose: 1,000 mls Levofloxacin 750 mg/ Device 150 mls @ 100 mls/hr IVPB Q24HR [facility] Last Admin: 10/02/17 09:11 Dose: 150 mls Insulin Human Regular (Humulin R) 0 units SC Q4H PRN; Protocol PRN Reason: POST OP SLIDING SCALE Last Admin: 10/02/17 05:33 Dose: 4 unit Labetalol HCl (Normodyne) 20 mg SLOW IVP Q15MIN PRN PRN Reason: SBP Greater Than 180 Last Admin: 10/01/17 16:09 Dose: 20 mg Loperamide HCl (Imodium) 2 mg PO PRN PRN PRN Reason: Diarrhea/Loose Stools Magnesium Hydroxide (Milk Of Magnesium) 30 ml PO DAILYPRN PRN PRN Reason: Constipation Mineral Oil/White Petrolatum (Eucerin Cream) 0 gm TOP BIDPRN PRN PRN Reason: Dry Skin Ondansetron HCl (Zofran) 4 mg IVP Q6H PRN PRN Reason: Nausea/Vomiting Last Admin: 09/28/17 15:52 Dose: 4 mg Ondansetron HCl (Zofran Odt) 4 mg PO Q6H PRN PRN Reason: Nausea/Vomiting Phenol (Chloraseptic [place] 180 Ml Bot) 0 ml PO PRN PRN PRN Reason: Sore Throat Potassium Chloride (Kcl) 20 meq IVPB PRN PRN PRN Reason: K level </= 4.0 Last Admin: 10/02/17 05:39 Dose: 20 meq Promethazine HCl (Phenergan) 6.25 mg IM Q4H PRN PRN Reason: Nausea/Vomiting Sodium Chloride (Flush - Normal Saline) 10 ml IVF PRN PRN PRN Reason: Saline Flush Sodium Chloride ([place] Nasal [place] 0.65%) 0 ml EA NARE QIDPRN PRN PRN Reason: Nasal Congestion
[2017-10-02] MEDS: Labetalol HCl 100 MG/20 ML VIAL SLOW IVP PRN ×2 (12:36→16:44)
--- NOTE | 2017-10-02 13:13 | PRG ---
DATE OF SERVICE: 10/02/2017 SUBJECTIVE: This morning, she is a little bit more responsive. She looks at you, is nodding. OBJECTIVE: VITAL SIGNS: Pulse 133, blood pressure is 157/70, sats , respiratory rate 18. She was given At anjelica last night for agitation. I's and O's are 2264 in and 3008 out. CHEST: Minimal rhonchi. CARDIAC: Normal S1 and S2, no gallops. ABDOMEN: Soft. NEUROLOGIC: As noted, more responsive. She is following commands. LABORATORY DATA: White count is 18,000, H and H 8 and 27, platelet count 342, creatinine is 1, BUN i s 41. Urine is growing E. coli. IMPRESSION: 1. Respiratory failure. 2. Status post cerebrovascular accident. 3. Status post coronary artery bypass grafting. 4. Diabetes. 5. Cerebrovascular accident. 6. Encephalopathy. PLAN: 1. Started on Levaquin for urinary tract infection-associated pneumonia. 2. We will wean and extubate. Avoid sedation. She is probably going to need speech for nutritional support. 3. We have to temporarily put in a [place] to feed her until Tuesday. Otherwise, PT and supportive care. [id number] critical care time.
[2017-10-02] MEDS: Atorvastatin Calcium 10 MG TAB PO SCH (21:07)
[2017-10-02] MEDS: Famotidine 20 MG TAB PO SCH (22:45)
[2017-10-03] MEDS: hydrALAZINE 20 MG/ML VIAL SLOW IVP PRN (00:56)
[2017-10-03 05:50] LABS: Anion Gap 12 mmol/L (10-20); BUN (Urea Nitrogen) 32 mg/dL (9.8-20.1); Calc. Creatinine Clearance 70 mL/min (70-130); Calcium 8.5 mg/dL (7.8-10.44); Carbon Dioxide 30 mmol/L (23-31); Chloride 103 mmol/L (98-107); Estimated GFR-MDRD 60; Glucose 165 mg/dL (83-110); Potassium 3.8 mmol/L (3.5-5.1); Sodium 141 mmol/L (136-145)
[2017-10-03 05:58] LABS: Band 14 % (5-11); Lymphocytes 12 % (21-51); MDiff Complete? YES; Mean Corpuscular HGB CONC 31.6 g/dL (32.0-36.0); Mean Corpuscular Hemoglobin 29.9 pg (27.0-31.0); Mean Corpuscular Volume 94.6 fL (78.0-98.0); Mean Platelet Volume 7.4 fL (7.4-10.4); Metamyelocyte 3 % (0-0); Monocytes 7 % (0-10); Myelocyte 1 % (0-0); Neutrophil 63 % (42-75); PLT Morphology Comment Appears Adequate; Platelet Count 397 thou/uL (130-400); RBC Distribution Width 12.4 % (11.5-14.5); White Blood Cell (WBC) Count 17.3 thou/uL (4.8-10.8)
[2017-10-03] MEDS: Labetalol HCl 100 MG/20 ML VIAL SLOW IVP PRN (08:44)
[2017-10-03] MEDS: Potassium Chloride 20 MEQ/100 ML PREMIX BAG IVPB PRN (08:45)
[2017-10-03] MEDS: Aspirin 325 MG TAB PO SCH (08:45)
--- NOTE | 2017-10-03 10:50 | PRG ---
DATE OF SERVICE: 10/03/2017 SERVICE: Pulmonary Medicine. INTERVAL HISTORY: The patient is doing outstanding from a respiratory standpoint. [place], s he is doing fantastic. She started speaking overnight. Her swallow and strength are improving a lit tle bit. She remains extraordinarily weak, but is sitting in a neuro chair currently. She has no co mplaints of shortness of breath or chest discomfort currently. PHYSICAL EXAMINATION: VITAL SIGNS: Afebrile, pulse 97, blood pressure 105/54, respirations 23, saturations 100% on 1 liter nasal cannula. GENERAL: The patient is awake and alert, in no apparent distress. LUNGS: Decent air entry. Dependent crackles are minimal. HEART: Normal rate and regular. ABDOMEN: Soft, nontender, nondistended. Bowel sounds are positive. MUSCULOSKELETAL: No cyanosis or clubbing. There is no pitting in the bilateral lower extremities. NEUROLOGIC: Grossly nonfocal. LABORATORY DATA: Escherichia coli is growing in the urine. Tracheal aspirate is growing many differ ent organisms including moderate normal respiratory merly. ASSESSMENT: 1. Acute hypoxic respiratory failure. 2. [id number] myocardial infarction. 3. Coronary artery disease, severe. 4. Coronary bypass graft, postoperative day #5. 5. Cerebrovascular accident, embolic, with return of significant neurologic function through the wee kend. 6. Chronic diastolic and valvular heart failure, currently euvolemic. DISCUSSION AND PLAN: We will continue our mobilization efforts. She can be moved to the [facility]. A co nsultation with case management will be placed to facilitate placement, as the patient will be unlike ly to proceed home from this hospital stay, given the time for which she was down. Pulmonary Critica l Care will continue to follow along.
--- NOTE | 2017-10-03 10:52 | PDOC.PN ---
- Subjective Encounter Start Date: 10/03/17 Encounter Start Time: 09:00 Patient seen and examined. No new complaints. No overnight events this morning she is more alert, able to tell her name, she was seated in chair - Objective MAR Reviewed: Yes Vital Signs & Weight: Vital Signs (12 hours) Temp Pulse Pulse Pulse Pulse Resp BP 10/03/17 09:46 78 80 80 10/03/17 08:44 97 10/03/17 08:00 98.2 F 97 20 10/03/17 04:00 97.9 F 10/03/17 03:54 10/03/17 00:56 89 163/87 H 10/03/17 00:00 98.0 F BP BP BP Pulse Ox Pulse Ox Pulse Ox Pulse Ox 10/03/17 09:46 118/51 L 124/51 L 114/42 L 100 100 100 10/03/17 08:44 10/03/17 08:00 10/03/17 04:00 10/03/17 03:54 98 10/03/17 00:56 10/03/17 00:00 Weight Admit Weight 196 lb 10.437 oz Weight 196 lb 3.382 oz Most Recent Monitor Data Heart Rate from ECG 72 NIBP 105/54 NIBP BP-Mean 71 Respiration from ECG 23 SpO2 100 I&O: 10/02/17 10/03/17 10/04/17 06:59 06:59 06:59 Intake Total 2028 1017 Output Total 2307 1745 165 [facility] -279 -728 -165 Result Diagrams: 10/03/17 05:25 10/03/17 05:25 Additional Labs: Accuchecks 10/03/17 10/03/17 10/02/17 07:08 05:02 21:52 POC Glucose 168 H 164 H 158 H 10/02/17 16:37 POC Glucose 181 H EKG Reviewed by me: Yes (nsr) Phys Exam - Physical Examination Constitutional: NAD HEENT: PERRLA, moist MMs, sclera anicteric Neck: no JVD, supple Respiratory: no wheezing, no rales, no rhonchi Cardiovascular: RRR, no significant murmur, no rub Gastrointestinal: soft, non-tender, no distention Musculoskeletal: no edema, pulses present Lymphatic: no nodes Psychiatric: normal affect Skin: no rash, normal turgor Dx/Plan (1) Acute encephalopathy Code(s): G93.40 - ENCEPHALOPATHY, UNSPECIFIED Status: Acute Comment: Likely multifactorial to include embolic CVA, monitor clinical response (2) Acute kidney injury superimposed on CKD Code(s): N17.9 - ACUTE KIDNEY FAILURE, UNSPECIFIED; N18.9 - CHRONIC KIDNEY DISEASE, UNSPECIFIED Status: Acute (3) Acute respiratory failure with hypoxia Code(s): J96.01 - ACUTE RESPIRATORY FAILURE WITH HYPOXIA Status: Acute Comment: [facility] as clinically indicated, sedation off (4) Cellulitis of foot Code(s): L03.119 - CELLULITIS OF UNSPECIFIED PART OF LIMB Status: Acute Comment: on Augmentin (5) Cerebrovascular accident, embolic Code(s): I63.9 - CEREBRAL INFARCTION, UNSPECIFIED Status: Acute Qualifiers: Laterality of affected vessel: bilateral Comment: Continue ASA 325mg daily (6) Postoperative anemia Code(s): D64.9 - ANEMIA, UNSPECIFIED Status: Acute Comment: Stable currently , monitor H/H trend (7) S/P CABG x 3 Code(s): Z95.1 - PRESENCE OF AORTOCORONARY BYPASS GRAFT Status: Acute Comment: bob to lad, rsvg to obt johnny and rca done on 09/27/2017, POD #3 (8) UTI (urinary tract infection) Status: Acute Comment: E. coli, tx with Levaquin (9) Uncontrolled hypertension Code(s): I10 - ESSENTIAL (PRIMARY) HYPERTENSION Status: Acute (10) Unstable angina Status: Acute (11) CAD (coronary artery disease) Code(s): I25.10 - ATHSCL HEART DISEASE OF [place] CORONARY ARTERY W/O ANG PCTRS Status: Chronic Qualifiers: Coronary Disease-Associated Artery/Lesion type: bypass graft [place] vs. transplanted heart: [place] heart Associated angina: with unstable angina Qualified Code(s): I25.700 - Atherosclerosis of coronary artery bypass graft(s) , unspecified, with unstable angina pectoris (12) DM2 (diabetes mellitus, type 2) Status: Chronic Qualifiers: Diabetes mellitus mcfp insulin use: without terminal worker use Diabetes mellitus complication status: with unspecified complications Qualified Code(s) : E11.8 - Type 2 diabetes mellitus with unspecified complications (13) H/O carotid endarterectomy Code(s): Z98.890 - OTHER SPECIFIED POSTPROCEDURAL STATES Status: Chronic (14) H/O: CVA (cerebrovascular accident) Code(s): Z86.73 - PRSNL HX OF TIA (TIA), AND CEREB INFRC W/O RESID DEFICITS Status: Chronic Comment: prior left hemiparesis per records (15) HLD (hyperlipidemia) Code(s): E78.5 - HYPERLIPIDEMIA, UNSPECIFIED Status: Chronic Qualifiers: Hyperlipidemia type: unspecified Qualified Code(s): E78.5 - Hyperlipidemia , unspecified (16) HTN (hypertension) Code(s): I10 - ESSENTIAL (PRIMARY) HYPERTENSION Status: Chronic Qualifiers: Hypertension type: essential hypertension Qualified Code(s): I10 - Essential (primary) hypertension - Plan cont current plan of care, vaca catheter, continue antibiotics, PT/OT, social services coordinator, speech therapy, DVT proph w/SCDs * transfer to [facility] * medication reviewed as below * symptomatic treatment * continue PT * discharge planning. Review of Systems - Review of Systems Other: not reliable today due to her overall level of cognitive status - Medications/Allergies Allergies/Adverse Reactions: Allergies Allergy/AdvReac Type Severity Reaction Status Date / Time chlorpheniramine polistirex Allergy Mild Verified 09/24/17 06:21 [From Tussionex] cephalexin [From Keflex] Allergy Verified 09/24/17 06:21 hydrocodone polistirex Allergy Verified 09/24/17 06:21 [From Tussionex] propofol AdvReac Nausea Verified 09/24/17 06:21 tussin AdvReac Emesis Uncoded 09/24/17 06:21 Medications: Current Medications Acetaminophen (Tylenol) 650 mg PO Q6H PRN PRN Reason: Headache/Fever Or Mild Pain Hydrocodone Bitart/Acetaminophen ([place] 5/325) 1 tab PO Q4H PRN PRN Reason: Moderate Pain (4-6) Hydrocodone Bitart/Acetaminophen ([place] 5/325) 2 tab PO Q4H PRN PRN Reason: Severe Pain (7-10) Last Admin: 10/02/17 04:50 Dose: 2 tab Al Hydroxide/Mg Hydroxide (Maalox) 30 ml PO Q4H PRN PRN Reason: Indigestion Artificial Tears (Tears Naturale) 0 drop EA EYE PRN PRN PRN Reason: Dry Eyes Aspirin (Aspirin) 325 mg PO DAILY [facility] Last Admin: 10/03/17 08:45 Dose: Not Given Atorvastatin Calcium (Lipitor) 10 mg PO HS [facility] Last Admin: 10/02/17 21:07 Dose: Not Given Bisacodyl (Dulcolax) 10 mg PO Q12H PRN PRN Reason: Constipation Bisacodyl (Dulcolax) 10 mg MA Q12H PRN PRN Reason: Constipation Dextrose/Water (Dextrose 50%) 25 gm SLOW IVP PRN PRN PRN Reason: PER HYPOGLYCEMIC PROTOCOL Famotidine (Pepcid) 20 mg PO BID J[facility] Glucagon (Glucagon) 1 mg SC PRN PRN PRN Reason: PER HYPOGLYCEMIC PROTOCOL Guaifenesin (Robitussin Sf) 200 mg PO Q4H PRN PRN Reason: Cough Hydralazine HCl (Apresoline) 10 mg SLOW IVP Q6H PRN PRN Reason: To Maintain SBP< 140mmHG Last Admin: 10/03/17 00:56 Dose: 10 mg Dextrose/Water (D5w) 1,000 mls @ 0 mls/hr IV INF PRN; As Directed PRN Reason: PRN HYPOGLYCEMIC PROTOCOL Sodium Chloride (1/2 Normal Saline) 1,000 mls @ 25 mls/hr IV .Q24H [facility] Last Admin: 10/02/17 22:45 Dose: Not Given Levofloxacin 750 mg/ Device 150 mls @ 100 mls/hr IVPB Q24HR [facility] Last Admin: 10/03/17 08:45 Dose: 150 mls Insulin Human Regular (Humulin R) 0 units SC Q4H PRN; Protocol PRN Reason: POST OP SLIDING SCALE Last Admin: 10/02/17 05:33 Dose: 4 unit Labetalol HCl (Normodyne) 20 mg SLOW IVP Q15MIN PRN PRN Reason: SBP Greater Than 180 Last Admin: 10/03/17 08:44 Dose: 20 mg Loperamide HCl (Imodium) 2 mg PO PRN PRN PRN Reason: Diarrhea/Loose Stools Magnesium Hydroxide (Milk Of Magnesium) 30 ml PO DAILYPRN PRN PRN Reason: Constipation Mineral Oil/White Petrolatum (Eucerin Cream) 0 gm TOP BIDPRN PRN PRN Reason: Dry Skin Ondansetron HCl (Zofran) 4 mg IVP Q6H PRN PRN Reason: Nausea/Vomiting Last Admin: 09/28/17 15:52 Dose: 4 mg Ondansetron HCl (Zofran Odt) 4 mg PO Q6H PRN PRN Reason: Nausea/Vomiting Phenol (Chloraseptic [place] 180 Ml Bot) 0 ml PO PRN PRN PRN Reason: Sore Throat Potassium Chloride (Kcl) 20 meq IVPB PRN PRN PRN Reason: K level </= 4.0 Last Admin: 10/03/17 08:45 Dose: 20 meq Promethazine HCl (Phenergan) 6.25 mg IM Q4H PRN PRN Reason: Nausea/Vomiting Sodium Chloride (Flush - Normal Saline) 10 ml IVF PRN PRN PRN Reason: Saline Flush Last Admin: 10/03/17 08:45 Dose: 10 ml Sodium Chloride ([place] Nasal [place] 0.65%) 0 ml EA NARE QIDPRN PRN PRN Reason: Nasal Congestion
[2017-10-03] MEDS: Insulin Regular 300 UNITS/3 ML VIAL SC PRN (13:05)
[2017-10-03] MEDS: Sodium Chloride 0.45% 1,000 ML IV SCH (19:21)
[2017-10-03] MEDS: HYDROcodone/Acetaminophen 5/325 mg Tablet PO PRN (20:27)
[2017-10-03] MEDS: Famotidine 20 MG TAB PO SCH (20:28)
[2017-10-03] MEDS: Enoxaparin Sodium 30 MG/0.3 ML SYRINGE SC SCH (20:28)
[2017-10-03] MEDS: Atorvastatin Calcium 10 MG TAB PO SCH (20:28)
[2017-10-04] MEDS: HYDROcodone/Acetaminophen 5/325 mg Tablet PO PRN ×3 (00:20→23:49)
[2017-10-04 04:47] LABS: Anion Gap 14 mmol/L (10-20); BUN (Urea Nitrogen) 29 mg/dL (9.8-20.1); Calc. Creatinine Clearance 58 mL/min (70-130); Calcium 8.3 mg/dL (7.8-10.44); Carbon Dioxide 26 mmol/L (23-31); Chloride 103 mmol/L (98-107); Estimated GFR-MDRD 48; Glucose 139 mg/dL (83-110); Potassium 3.9 mmol/L (3.5-5.1); Sodium 139 mmol/L (136-145)
[2017-10-04 04:58] LABS: Band 12 % (5-11); Eosinophils 2 % (0-10); Hemoglobin 8.9 g/dL (12.0-16.0); Lymphocytes 21 % (21-51); MDiff Complete? YES; Mean Corpuscular Hemoglobin 31.2 pg (27.0-31.0); Mean Corpuscular Volume 94.4 fL (78.0-98.0); Mean Platelet Volume 7.4 fL (7.4-10.4); Metamyelocyte 3 % (0-0); Monocytes 7 % (0-10); Myelocyte 1 % (0-0); Neutrophil 54 % (42-75); PLT Morphology Comment Appears Adequate; Platelet Count 384 thou/uL (130-400); RBC Distribution Width 12.6 % (11.5-14.5); Red Blood Cell (RBC) Count 2.86 mill/uL (4.20-5.40); White Blood Cell (WBC) Count 16.4 thou/uL (4.8-10.8)
[2017-10-04] MEDS: Insulin Regular 300 UNITS/3 ML VIAL SC PRN (06:43)
[2017-10-04] MEDS: Metoprolol Tartrate 25 MG TAB PO SCH ×2 (09:02→20:40)
[2017-10-04] MEDS: Famotidine 20 MG TAB PO SCH ×2 (09:02→20:40)
[2017-10-04] MEDS: Aspirin 325 MG TAB PO SCH (09:03)
[2017-10-04] MEDS ORDERED: Fluconazole 100 MG TAB PO SCH (11:45)
--- NOTE | 2017-10-04 12:41 | PDOC.PN ---
- Subjective Encounter Start Date: 10/04/17 Encounter Start Time: 09:45 Patient seen and examined. No new complaints. No overnight events she wants some good sleep meds - Objective MAR Reviewed: Yes Vital Signs & Weight: Vital Signs (12 hours) Temp Pulse Resp BP BP Pulse Ox 10/04/17 11:26 98.1 F 80 21 H 126/57 L 97 10/04/17 07:51 97.9 F 127 H 23 H 100 10/04/17 07:37 97.9 F 127 H 23 H 148/76 H 100 10/04/17 04:20 97.4 F L 90 14 139/59 L 98 10/04/17 03:47 97 Weight Admit Weight 196 lb 10.437 oz Weight 193 lb 3.2 oz Most Recent Monitor Data Heart Rate from ECG 89 NIBP 144/67 NIBP BP-Mean 79 Respiration from ECG 22 SpO2 100 I&O: 10/03/17 10/04/17 10/05/17 06:59 06:59 06:59 Intake Total 1017 590 Output Total 1745 1065 Balance -728 475 Result Diagrams: 10/04/17 03:57 10/04/17 03:57 Additional Labs: Accuchecks 10/04/17 10/04/17 10/03/17 11:10 06:12 22:43 POC Glucose 189 H 140 H 142 H 10/03/17 10/03/17 16:28 13:04 POC Glucose 131 H 225 H EKG Reviewed by me: Yes (nsr) Phys Exam - Physical Examination Constitutional: NAD HEENT: PERRLA, moist MMs, sclera anicteric Neck: no JVD, supple Respiratory: no wheezing, no rales, no rhonchi Cardiovascular: RRR, no significant murmur, no rub Gastrointestinal: soft, non-tender, no distention, positive bowel sounds Musculoskeletal: no edema, pulses present Neurological: normal sensation, moves all 4 limbs Lymphatic: no nodes Psychiatric: normal affect Skin: no rash, normal turgor Dx/Plan (1) Acute encephalopathy Code(s): G93.40 - ENCEPHALOPATHY, UNSPECIFIED Status: Resolved Comment: Likely multifactorial to include embolic CVA, monitor clinical response (2) Acute kidney injury superimposed on CKD Code(s): N17.9 - ACUTE KIDNEY FAILURE, UNSPECIFIED; N18.9 - CHRONIC KIDNEY DISEASE, UNSPECIFIED Status: Resolved (3) Acute respiratory failure with hypoxia Code(s): J96.01 - ACUTE RESPIRATORY FAILURE WITH HYPOXIA Status: Resolved Comment: extubated (4) Cellulitis of foot Code(s): L03.119 - CELLULITIS OF UNSPECIFIED PART OF LIMB Status: Resolved Comment: (5) Cerebrovascular accident, embolic Code(s): I63.9 - CEREBRAL INFARCTION, UNSPECIFIED Status: Acute Qualifiers: Laterality of affected vessel: bilateral Comment: Continue ASA 325mg daily (6) Postoperative anemia Code(s): D64.9 - ANEMIA, UNSPECIFIED Status: Acute Comment: (7) S/P CABG x 3 Code(s): Z95.1 - PRESENCE OF AORTOCORONARY BYPASS GRAFT Status: Acute Comment: bob to lad, rsvg to obt johnny and rca done on 09/27/2017 (8) UTI (urinary tract infection) Status: Resolved Comment: E. coli, tx with Levaquin (9) Uncontrolled hypertension Code(s): I10 - ESSENTIAL (PRIMARY) HYPERTENSION Status: Acute (10) Unstable angina Status: Resolved (11) CAD (coronary artery disease) Code(s): I25.10 - ATHSCL HEART DISEASE OF [place] CORONARY ARTERY W/O ANG PCTRS Status: Chronic Qualifiers: Coronary Disease-Associated Artery/Lesion type: bypass graft [place] vs. transplanted heart: [place] heart Associated angina: with unstable angina Qualified Code(s): I25.700 - Atherosclerosis of coronary artery bypass graft(s) , unspecified, with unstable angina pectoris (12) DM2 (diabetes mellitus, type 2) Status: Chronic Qualifiers: Diabetes mellitus chcf insulin use: without chcf use Diabetes mellitus complication status: with unspecified complications Qualified Code(s) : E11.8 - Type 2 diabetes mellitus with unspecified complications (13) H/O carotid endarterectomy Code(s): Z98.890 - OTHER SPECIFIED POSTPROCEDURAL STATES Status: Chronic (14) H/O: CVA (cerebrovascular accident) Code(s): Z86.73 - PRSNL HX OF TIA (TIA), AND CEREB INFRC W/O RESID DEFICITS Status: Chronic Comment: prior left hemiparesis per records (15) HLD (hyperlipidemia) Code(s): E78.5 - HYPERLIPIDEMIA, UNSPECIFIED Status: Chronic Qualifiers: Hyperlipidemia type: unspecified Qualified Code(s): E78.5 - Hyperlipidemia , unspecified (16) HTN (hypertension) Code(s): I10 - ESSENTIAL (PRIMARY) HYPERTENSION Status: Chronic Qualifiers: Hypertension type: essential hypertension Qualified Code(s): I10 - Essential (primary) hypertension - Plan cont current plan of care, plan discussed w/ family, continue antibiotics, PT/OT , socially responsible investment adviser * currently on diflucan and levaquin * discussed with family bedside * will need more PT and eventual placement to rehab when all sql server consultant clears * medication reviewed as below * symptomatic treatment * restoril for sleep as needed . Review of Systems - Review of Systems Constitutional: weakness. negative: fever, chills, sweats, malaise, other ENT: negative: Ear Pain, Ear Discharge, Nose Pain, Nose Discharge, Nose Congestion, Mouth Pain, Mouth Swelling, Throat Pain, Throat Swelling, Other Respiratory: negative: Cough, Dry, Shortness of Breath, Hemoptysis, SOB with Excertion, Pleuritic Pain, Sputum, Wheezing Cardiovascular: negative: chest pain, palpitations, orthopnea, paroxysmal nocturnal dyspnea, edema, light headedness, other Gastrointestinal: negative: Nausea, Vomiting, Abdominal Pain, Diarrhea, Constipation, Melena, Hematochezia, Other Genitourinary: negative: Dysuria, Frequency, Incontinence, Hematuria, Retention , Other Musculoskeletal: negative: Neck Pain, Shoulder Pain, Arm Pain, Back Pain, Hand Pain, Leg Pain, Foot Pain, Other Skin: negative: Rash, Lesions, Inder, Bruising, Other - Medications/Allergies Allergies/Adverse Reactions: Allergies Allergy/AdvReac Type Severity Reaction Status Date / Time chlorpheniramine polistirex Allergy Mild Verified 09/24/17 06:21 [From Tussionex] cephalexin [From Keflex] Allergy Verified 09/24/17 06:21 hydrocodone polistirex Allergy Verified 09/24/17 06:21 [From Tussionex] propofol AdvReac Nausea Verified 09/24/17 06:21 tussin AdvReac Emesis Uncoded 09/24/17 06:21 Medications: Current Medications Acetaminophen (Tylenol) 650 mg PO Q6H PRN PRN Reason: Headache/Fever Or Mild Pain Hydrocodone Bitart/Acetaminophen ([place] 5/325) 1 tab PO Q4H PRN PRN Reason: Moderate Pain (4-6) Last Admin: 10/03/17 20:27 Dose: 1 tab Hydrocodone Bitart/Acetaminophen ([place] 5/325) 2 tab PO Q4H PRN PRN Reason: Severe Pain (7-10) Last Admin: 10/04/17 00:20 Dose: 2 tab Al Hydroxide/Mg Hydroxide (Maalox) 30 ml PO Q4H PRN PRN Reason: Indigestion Artificial Tears (Tears Naturale) 0 drop EA EYE PRN PRN PRN Reason: Dry Eyes Aspirin (Aspirin) 325 mg PO DAILY [facility] Last Admin: 10/04/17 09:03 Dose: 325 mg Atorvastatin Calcium (Lipitor) 10 mg PO HS [facility] Last Admin: 10/03/17 20:28 Dose: 10 mg Bisacodyl (Dulcolax) 10 mg PO Q12H PRN PRN Reason: Constipation Bisacodyl (Dulcolax) 10 mg ID Q12H PRN PRN Reason: Constipation Dextrose/Water (Dextrose 50%) 25 gm SLOW IVP PRN PRN PRN Reason: PER HYPOGLYCEMIC PROTOCOL Enoxaparin Sodium (Lovenox) 30 mg SC 2100 [facility] Last Admin: 10/03/17 20:28 Dose: 30 mg Famotidine (Pepcid) 20 mg PO BID [facility] Last Admin: 10/04/17 09:02 Dose: 20 mg Fluconazole (Diflucan) 100 mg PO DAILY [facility] Stop: 10/13/17 09:01 Fluconazole (Diflucan) 200 mg PO NOW [facility] Stop: 10/04/17 14:00 Glucagon (Glucagon) 1 mg SC PRN PRN PRN Reason: PER HYPOGLYCEMIC PROTOCOL Guaifenesin (Robitussin Sf) 200 mg PO Q4H PRN PRN Reason: Cough Hydralazine HCl (Apresoline) 10 mg SLOW IVP Q6H PRN PRN Reason: To Maintain SBP< 140mmHG Last Admin: 10/03/17 00:56 Dose: 10 mg Dextrose/Water (D5w) 1,000 mls @ 0 mls/hr IV INF PRN; As Directed PRN Reason: PRN HYPOGLYCEMIC PROTOCOL Sodium Chloride (1/2 Normal Saline) 1,000 mls @ 25 mls/hr IV .Q24H [facility] Last Admin: 10/03/17 19:21 Dose: 1,000 mls Levofloxacin 750 mg/ Device 150 mls @ 100 mls/hr IVPB Q24HR [facility] Last Admin: 10/04/17 09:04 Dose: 150 mls Insulin Human Regular (Humulin R) 0 units SC Q4H PRN; Protocol PRN Reason: POST OP SLIDING SCALE Last Admin: 10/04/17 06:43 Dose: 2 unit Labetalol HCl (Normodyne) 20 mg SLOW IVP Q15MIN PRN PRN Reason: SBP Greater Than 180 Last Admin: 10/03/17 08:44 Dose: 20 mg Loperamide HCl (Imodium) 2 mg PO PRN PRN PRN Reason: Diarrhea/Loose Stools Magnesium Hydroxide (Milk Of Magnesium) 30 ml PO DAILYPRN PRN PRN Reason: Constipation Metoprolol Tartrate (Lopressor) 25 mg PO BID [facility] Last Admin: 10/04/17 09:02 Dose: 25 mg Mineral Oil/White Petrolatum (Eucerin Cream) 0 gm TOP BIDPRN PRN PRN Reason: Dry Skin Ondansetron HCl (Zofran) 4 mg IVP Q6H PRN PRN Reason: Nausea/Vomiting Last Admin: 09/28/17 15:52 Dose: 4 mg Ondansetron HCl (Zofran Odt) 4 mg PO Q6H PRN PRN Reason: Nausea/Vomiting Phenol (Chloraseptic [place] 180 Ml Bot) 0 ml PO PRN PRN PRN Reason: Sore Throat Potassium Chloride (Kcl) 20 meq IVPB PRN PRN PRN Reason: K level </= 4.0 Last Admin: 10/03/17 08:45 Dose: 20 meq Promethazine HCl (Phenergan) 6.25 mg IM Q4H PRN PRN Reason: Nausea/Vomiting Sodium Chloride (Flush - Normal Saline) 10 ml IVF PRN PRN PRN Reason: Saline Flush Last Admin: 10/03/17 19:26 Dose: 10 ml Sodium Chloride ([place] Nasal [place] 0.65%) 0 ml EA NARE QIDPRN PRN PRN Reason: Nasal Congestion Temazepam (Restoril) 15 mg PO HSPRN PRN PRN Reason: Insomnia
[2017-10-04] MEDS ORDERED: Temazepam 15 MG CAP PO PRN (12:45)
[2017-10-04 14:02] VITALS: BMI 29.3
--- NOTE | 2017-10-04 15:27 | PRG ---
DATE OF SERVICE: 10/04/2017 SERVICE: Pulmonary Medicine. INTERVAL HISTORY: The patient is doing fine from a cardiovascular and respiratory standpoint. She i s breathing comfortably. She does not have any chest discomfort, nausea or vomiting. Otherwise, she is improving day by day. Her family indicates that she is weak, but her mentation is very sharp rig ht now. She knows accurate balance is for her checking count. PHYSICAL EXAMINATION: VITAL SIGNS: Afebrile, pulse 80, blood pressure 126/57, respirations 21, saturation 97% on room air. GENERAL: The patient is awake, alert, no apparent distress. HEENT: Normocephalic, atraumatic. Sclerae are white, conjunctivae pink. Oral mucosa has thrush all over the tongue. GENITOURINARY: Mcelroy catheter in place. NEUROLOGIC: Grossly nonfocal. LABORATORY DATA: WBC 16.4, hemoglobin 8.9, platelets 384,000 with a band count that is dropping to 1 2%. Creatinine 1.1. Basic metabolic profile is otherwise unremarkable. ASSESSMENT: 1. Acute hypoxic respiratory failure. 2. Non-ST elevation myocardial infarction. 3. Coronary artery disease, severe. 4. Coronary bypass graft, postoperative day #6. 5. Cerebrovascular accident, embolic with return of neurologic function. 6. Chronic diastolic and valvular heart failure. 7. Thrush. DISCUSSION AND PLAN: I will add an antifungal medication. From my perspective, she is stable for tr ansition to the telemetry unit. Pulmonary Critical Care will continue to follow along for the time liliana faust, but once her white blood cell count starts to drop off, she will be a candidate for transition out of the hospital.
[2017-10-04] MEDS: Atorvastatin Calcium 10 MG TAB PO SCH (20:39)
[2017-10-04] MEDS: Enoxaparin Sodium 30 MG/0.3 ML SYRINGE SC SCH (20:40)
[2017-10-04] MEDS: Sodium Chloride 0.45% 1,000 ML IV SCH (23:00)
[2017-10-05 05:38] LABS: #Basophils 0.1 thou/uL (0.0-0.2); #Eosinphils 1.2 thou/uL (0.0-0.7); #Lymphocytes 2.6 thou/uL (1.20-3.40); #Monocytes 1.6 thou/uL (0.11-0.59); #Neutrophils 9.7 thou/uL (1.40-6.50); %Basophils 0.4 % (0.0-1.0); %Eosinophils 8.1 % (0.0-10.0); %Lymphocytes 16.9 % (21.0-51.0); %Monocytes 10.3 % (0.0-10.0); %Neutrophils 64.3 % (42.0-75.0); Hemoglobin 9.6 g/dL (12.0-16.0); Mean Corpuscular HGB CONC 33.1 g/dL (32.0-36.0); Mean Corpuscular Hemoglobin 31.8 pg (27.0-31.0); Mean Corpuscular Volume 96.2 fL (78.0-98.0); Mean Platelet Volume 7.8 fL (7.4-10.4); Platelet Count 436 thou/uL (130-400); RBC Distribution Width 13.4 % (11.5-14.5); Red Blood Cell (RBC) Count 3.01 mill/uL (4.20-5.40); White Blood Cell (WBC) Count 15.1 thou/uL (4.8-10.8)
[2017-10-05 05:51] LABS: Anion Gap 15 mmol/L (10-20); BUN (Urea Nitrogen) 23 mg/dL (9.8-20.1); Calc. Creatinine Clearance 57 mL/min (70-130); Calcium 8.5 mg/dL (7.8-10.44); Carbon Dioxide 23 mmol/L (23-31); Chloride 103 mmol/L (98-107); Estimated GFR-MDRD 47; Glucose 139 mg/dL (83-110); Potassium 3.7 mmol/L (3.5-5.1); Sodium 137 mmol/L (136-145)
[2017-10-05] MEDS: Aspirin 325 MG TAB PO SCH (08:23)
[2017-10-05] MEDS: Metoprolol Tartrate 25 MG TAB PO SCH ×2 (08:24→20:25)
[2017-10-05] MEDS: Fluconazole 100 MG TAB PO SCH (08:24)
[2017-10-05] MEDS: Famotidine 20 MG TAB PO SCH ×2 (08:24→20:25)
[2017-10-05] MEDS: HYDROcodone/Acetaminophen 5/325 mg Tablet PO PRN ×2 (08:36→20:26)
[2017-10-05] MEDS: Amlodipine 10 MG TAB PO SCH (09:22)
--- NOTE | 2017-10-05 10:01 | PDOC.PN ---
- Subjective Encounter Start Date: 10/05/17 Encounter Start Time: 07:30 Patient seen and examined for cad, cva. No new complaints. No overnight events - Objective MAR Reviewed: Yes Vital Signs & Weight: Vital Signs (12 hours) Temp Pulse Resp BP BP Pulse Ox 10/05/17 09:22 97 148/67 H 10/05/17 08:11 97.9 F 97 18 172/92 H 93 L 10/05/17 03:42 98 F 91 24 H 166/79 H 93 L Weight Admit Weight 196 lb 10.437 oz Weight 195 lb 3 oz Most Recent Monitor Data Heart Rate from ECG 89 NIBP 144/67 NIBP BP-Mean 79 Respiration from ECG 22 SpO2 100 I&O: 10/04/17 10/05/17 10/06/17 06:59 06:59 06:59 Intake Total 590 300 Output Total 1065 650 Balance -475 -350 Result Diagrams: 10/05/17 04:54 10/05/17 04:54 Additional Labs: Accuchecks 10/05/17 10/04/17 10/04/17 05:36 20:52 17:42 POC Glucose 143 H 150 H 141 H 10/04/17 10/04/17 14:06 11:10 POC Glucose 148 H 189 H EKG Reviewed by me: Yes (nsr) Phys Exam - Physical Examination Constitutional: NAD HEENT: PERRLA, moist MMs, sclera anicteric Neck: no JVD, supple Respiratory: no wheezing, no rales, no rhonchi Cardiovascular: RRR, no significant murmur, no rub Gastrointestinal: soft, non-tender, no distention, positive bowel sounds Musculoskeletal: no edema, pulses present vaca+ Neurological: moves all 4 limbs Lymphatic: no nodes Psychiatric: normal affect Skin: no rash, normal turgor Dx/Plan (1) Acute encephalopathy Code(s): G93.40 - ENCEPHALOPATHY, UNSPECIFIED Status: Resolved Comment: Likely multifactorial to include embolic CVA, monitor clinical response (2) Acute kidney injury superimposed on CKD Code(s): N17.9 - ACUTE KIDNEY FAILURE, UNSPECIFIED; N18.9 - CHRONIC KIDNEY DISEASE, UNSPECIFIED Status: Resolved (3) Acute respiratory failure with hypoxia Code(s): J96.01 - ACUTE RESPIRATORY FAILURE WITH HYPOXIA Status: Resolved Comment: extubated (4) Cellulitis of foot Code(s): L03.119 - CELLULITIS OF UNSPECIFIED PART OF LIMB Status: Resolved Comment: (5) Cerebrovascular accident, embolic Code(s): I63.9 - CEREBRAL INFARCTION, UNSPECIFIED Status: Acute Qualifiers: Laterality of affected vessel: bilateral Comment: Continue ASA 325mg daily (6) Postoperative anemia Code(s): D64.9 - ANEMIA, UNSPECIFIED Status: Acute Comment: (7) S/P CABG x 3 Code(s): Z95.1 - PRESENCE OF AORTOCORONARY BYPASS GRAFT Status: Acute Comment: bob to lad, rsvg to obt johnny and rca done on 09/27/2017 (8) UTI (urinary tract infection) Status: Resolved Comment: E. coli, tx with Levaquin (9) Uncontrolled hypertension Code(s): I10 - ESSENTIAL (PRIMARY) HYPERTENSION Status: Acute (10) Unstable angina Status: Resolved (11) CAD (coronary artery disease) Code(s): I25.10 - ATHSCL HEART DISEASE OF [place] CORONARY ARTERY W/O ANG PCTRS Status: Chronic Qualifiers: Coronary Disease-Associated Artery/Lesion type: bypass graft [place] vs. transplanted heart: [place] heart Associated angina: with unstable angina Qualified Code(s): I25.700 - Atherosclerosis of coronary artery bypass graft(s) , unspecified, with unstable angina pectoris (12) DM2 (diabetes mellitus, type 2) Status: Chronic Qualifiers: Diabetes mellitus buttermaker insulin use: without buttermaker use Diabetes mellitus complication status: with unspecified complications Qualified Code(s) : E11.8 - Type 2 diabetes mellitus with unspecified complications (13) H/O carotid endarterectomy Code(s): Z98.890 - OTHER SPECIFIED POSTPROCEDURAL STATES Status: Chronic (14) H/O: CVA (cerebrovascular accident) Code(s): Z86.73 - PRSNL HX OF TIA (TIA), AND CEREB INFRC W/O RESID DEFICITS Status: Chronic Comment: prior left hemiparesis per records (15) HLD (hyperlipidemia) Code(s): E78.5 - HYPERLIPIDEMIA, UNSPECIFIED Status: Chronic Qualifiers: Hyperlipidemia type: unspecified Qualified Code(s): E78.5 - Hyperlipidemia , unspecified (16) HTN (hypertension) Code(s): I10 - ESSENTIAL (PRIMARY) HYPERTENSION Status: Chronic Qualifiers: Hypertension type: essential hypertension Qualified Code(s): I10 - Essential (primary) hypertension - Plan cont current plan of care, continue antibiotics, PT/OT, social worker * monitor for wbc count, once continue to go down will consider discharge to rehab * medication reviewed as below * symptomatic treatment * on diflucan and levaquin today * diet as tolerated * pt wanted to leave vaca in until discharge. Review of Systems - Review of Systems Eyes: negative: Pain, Vision Change, Conjunctivae Inflammation, Eyelid Inflammation, Redness, Other ENT: negative: Ear Pain, Ear Discharge, Nose Pain, Nose Discharge, Nose Congestion, Mouth Pain, Mouth Swelling, Throat Pain, Throat Swelling, Other Respiratory: negative: Cough, Dry, Shortness of Breath, Hemoptysis, SOB with Excertion, Pleuritic Pain, Sputum, Wheezing Cardiovascular: negative: chest pain, palpitations, orthopnea, paroxysmal nocturnal dyspnea, edema, light headedness, other Gastrointestinal: negative: Nausea, Vomiting, Abdominal Pain, Diarrhea, Constipation, Melena, Hematochezia, Other Genitourinary: negative: Dysuria, Frequency, Incontinence, Hematuria, Retention , Other Musculoskeletal: negative: Neck Pain, Shoulder Pain, Arm Pain, Back Pain, Hand Pain, Leg Pain, Foot Pain, Other Skin: negative: Rash, Lesions, Inder, Bruising, Other - Medications/Allergies Allergies/Adverse Reactions: Allergies Allergy/AdvReac Type Severity Reaction Status Date / Time chlorpheniramine polistirex Allergy Mild Verified 09/24/17 06:21 [From Tussionex] cephalexin [From Keflex] Allergy Verified 09/24/17 06:21 hydrocodone polistirex Allergy Verified 09/24/17 06:21 [From Tussionex] propofol AdvReac Nausea Verified 09/24/17 06:21 tussin AdvReac Emesis Uncoded 09/24/17 06:21 Medications: Current Medications Acetaminophen (Tylenol) 650 mg PO Q6H PRN PRN Reason: Headache/Fever Or Mild Pain Hydrocodone Bitart/Acetaminophen ([place] 5/325) 1 tab PO Q4H PRN PRN Reason: Moderate Pain (4-6) Last Admin: 10/05/17 08:36 Dose: 1 tab Hydrocodone Bitart/Acetaminophen ([place] 5/325) 2 tab PO Q4H PRN PRN Reason: Severe Pain (7-10) Last Admin: 10/04/17 23:49 Dose: 2 tab Al Hydroxide/Mg Hydroxide (Maalox) 30 ml PO Q4H PRN PRN Reason: Indigestion Amlodipine Besylate (Norvasc) 10 mg PO DAILY [facility] Last Admin: 10/05/17 09:22 Dose: 10 mg Artificial Tears (Tears Naturale) 0 drop EA EYE PRN PRN PRN Reason: Dry Eyes Aspirin (Aspirin) 325 mg PO DAILY [facility] Last Admin: 10/05/17 08:23 Dose: 325 mg Atorvastatin Calcium (Lipitor) 10 mg PO HS [facility] Last Admin: 10/04/17 20:39 Dose: 10 mg Bisacodyl (Dulcolax) 10 mg PO Q12H PRN PRN Reason: Constipation Bisacodyl (Dulcolax) 10 mg [place] Q12H PRN PRN Reason: Constipation Dextrose/Water (Dextrose 50%) 25 gm SLOW IVP PRN PRN PRN Reason: PER HYPOGLYCEMIC PROTOCOL Enoxaparin Sodium (Lovenox) 30 mg SC 2100 [facility] Last Admin: 10/04/17 20:40 Dose: 30 mg Famotidine (Pepcid) 20 mg PO BID [facility] Last Admin: 10/05/17 08:24 Dose: 20 mg Fluconazole (Diflucan) 100 mg PO DAILY [facility] Stop: 10/13/17 09:01 Last Admin: 10/05/17 08:24 Dose: 100 mg Glucagon (Glucagon) 1 mg SC PRN PRN PRN Reason: PER HYPOGLYCEMIC PROTOCOL Guaifenesin (Robitussin Sf) 200 mg PO Q4H PRN PRN Reason: Cough Hydralazine HCl (Apresoline) 10 mg SLOW IVP Q6H PRN PRN Reason: To Maintain SBP< 140mmHG Last Admin: 10/03/17 00:56 Dose: 10 mg Dextrose/Water (D5w) 1,000 mls @ 0 mls/hr IV INF PRN; As Directed PRN Reason: PRN HYPOGLYCEMIC PROTOCOL Insulin Human Regular (Humulin R) 0 units SC Q4H PRN; Protocol PRN Reason: POST OP SLIDING SCALE Last Admin: 10/04/17 06:43 Dose: 2 unit Labetalol HCl (Normodyne) 20 mg SLOW IVP Q15MIN PRN PRN Reason: SBP Greater Than 180 Last Admin: 10/03/17 08:44 Dose: 20 mg Loperamide HCl (Imodium) 2 mg PO PRN PRN PRN Reason: Diarrhea/Loose Stools Magnesium Hydroxide (Milk Of Magnesium) 30 ml PO DAILYPRN PRN PRN Reason: Constipation Metoprolol Tartrate (Lopressor) 25 mg PO BID [facility] Last Admin: 10/05/17 08:24 Dose: 25 mg Mineral Oil/White Petrolatum (Eucerin Cream) 0 gm TOP BIDPRN PRN PRN Reason: Dry Skin Ondansetron HCl (Zofran) 4 mg IVP Q6H PRN PRN Reason: Nausea/Vomiting Last Admin: 09/28/17 15:52 Dose: 4 mg Ondansetron HCl (Zofran Odt) 4 mg PO Q6H PRN PRN Reason: Nausea/Vomiting Phenol (Chloraseptic [place] 180 Ml Bot) 0 ml PO PRN PRN PRN Reason: Sore Throat Potassium Chloride (Kcl) 20 meq IVPB PRN PRN PRN Reason: K level </= 4.0 Last Admin: 10/03/17 08:45 Dose: 20 meq Promethazine HCl (Phenergan) 6.25 mg IM Q4H PRN PRN Reason: Nausea/Vomiting Sodium Chloride (Flush - Normal Saline) 10 ml IVF PRN PRN PRN Reason: Saline Flush Last Admin: 10/05/17 08:24 Dose: 10 ml Sodium Chloride ([place] Nasal [place] 0.65%) 0 ml EA NARE QIDPRN PRN PRN Reason: Nasal Congestion Temazepam (Restoril) 15 mg PO HSPRN PRN PRN Reason: Insomnia
--- NOTE | 2017-10-05 18:41 | PRG ---
DATE OF SERVICE: 10/05/2017 SERVICE: Pulmonary Medicine. INTERVAL HISTORY: The patient is doing great from a respiratory standpoint. Breathing comfortably. She has no complaints of chest pain, nausea, vomiting, fevers or chills. Otherwise, there has been no interval change to her condition. LABORATORY DATA: White blood cell count is gently trending downward. PHYSICAL EXAMINATION: VITAL SIGNS: Afebrile, pulse 87, blood pressure 131/74, respirations 18, saturation 96% on 2 liters nasal cannula. GENERAL: The patient is awake, alert, in no apparent distress. LUNGS: Crackles are present bilaterally. There is no prolonged expiratory phase or wheezing appreci ated. HEART: Normal rate, regular. ABDOMEN: Soft, nontender, nondistended. Bowel sounds are positive. MUSCULOSKELETAL: No cyanosis or clubbing. No pitting in the bilateral lower extremities. LABORATORY DATA: WBC 15.1, hemoglobin 9.6, platelets 436,000. Creatinine 1.11. Basic metabolic pro file is otherwise unremarkable except for potassium 3.7. ASSESSMENT: 1. Acute hypoxic respiratory failure. 2. Non-ST elevation myocardial infarction. 3. Coronary artery disease, severe. 4. Coronary bypass graft on postop day #7. 5. 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 6. Chronic diastolic and valvular heart failure. 7. Thrush, on fluconazole day #2. DISCUSSION AND PLAN: I will continue her fluconazole and other supportive care. We will focus on mo bilizing the patient. If patient's white blood cell count continues to trend down over the next 24 h ours, she can be discharged from the hospital. I will give the patient small dose of potassium. In the morning, [place] catheter will be removed.
[2017-10-05] MEDS ORDERED: Potassium Chloride 20 MEQ TAB PO SCH (18:45)
[2017-10-05] MEDS: Atorvastatin Calcium 10 MG TAB PO SCH (20:25)
[2017-10-05] MEDS: Enoxaparin Sodium 30 MG/0.3 ML SYRINGE SC SCH (20:26)
[2017-10-05] MEDS ORDERED: Furosemide 20 MG/2 ML VIAL SLOW IVP SCH (20:30)
[2017-10-06 05:47] LABS: #Basophils 0.1 thou/uL (0.0-0.2); #Eosinphils 0.9 thou/uL (0.0-0.7); #Lymphocytes 2.5 thou/uL (1.20-3.40); #Neutrophils 10.4 thou/uL (1.40-6.50); %Basophils 0.4 % (0.0-1.0); %Eosinophils 5.7 % (0.0-10.0); %Lymphocytes 15.7 % (21.0-51.0); %Monocytes 12.5 % (0.0-10.0); %Neutrophils 65.8 % (42.0-75.0); Mean Corpuscular HGB CONC 32.2 g/dL (32.0-36.0); Mean Corpuscular Hemoglobin 30.2 pg (27.0-31.0); Mean Corpuscular Volume 93.8 fL (78.0-98.0); Mean Platelet Volume 7.2 fL (7.4-10.4); PLT Morphology Comment Appears Adequate; Platelet Count 425 thou/uL (130-400); RBC Distribution Width 13.3 % (11.5-14.5); RBC Morphology Normal; White Blood Cell (WBC) Count 15.8 thou/uL (4.8-10.8)
[2017-10-06] MEDS: Famotidine 20 MG TAB PO SCH (08:46)
[2017-10-06] MEDS: Amlodipine 10 MG TAB PO SCH (08:46)
[2017-10-06] MEDS: Aspirin 325 MG TAB PO SCH (08:46)
[2017-10-06] MEDS: Fluconazole 100 MG TAB PO SCH (08:47)
[2017-10-06] MEDS: Metoprolol Tartrate 25 MG TAB PO SCH (08:49)
[2017-10-06] MEDS: HYDROcodone/Acetaminophen 5/325 mg Tablet PO PRN (08:58)
--- NOTE | 2017-10-06 10:43 | PDOC.PN ---
- Subjective Encounter Start Date: 10/06/17 Encounter Start Time: 09:15 Patient seen and examined for cva, s/p cabg, overall doing well, last night had diarrhoea, no fever. No overnight events - Objective MAR Reviewed: Yes Vital Signs & Weight: Vital Signs (12 hours) Temp Pulse Resp BP BP Pulse Ox 10/06/17 08:46 94 10/06/17 08:27 98.1 F 94 18 158/94 H 93 L 10/06/17 04:00 98.1 F 90 16 121/67 86 L Weight Admit Weight 196 lb 10.437 oz Weight 192 lb Most Recent Monitor Data Heart Rate from ECG 89 NIBP 144/67 NIBP BP-Mean 79 Respiration from ECG 22 SpO2 100 I&O: 10/05/17 10/06/17 10/07/17 06:59 06:59 06:59 Intake Total 300 570 Output Total 650 1075 Balance -350 -505 Result Diagrams: 10/06/17 05:09 10/05/17 04:54 Additional Labs: Accuchecks 10/06/17 10/05/17 10/05/17 05:54 21:01 20:36 POC Glucose 118 H 146 H 150 H 10/05/17 10/05/17 16:58 10:46 POC Glucose 137 H 173 H EKG Reviewed by me: Yes (nsr) Phys Exam - Physical Examination Constitutional: NAD HEENT: PERRLA, moist MMs, sclera anicteric Neck: no JVD, supple Respiratory: no wheezing, no rales, no rhonchi Cardiovascular: RRR, no significant murmur, no rub surgical site clean Gastrointestinal: soft, non-tender, no distention, positive bowel sounds Musculoskeletal: no edema, pulses present Neurological: moves all 4 limbs Lymphatic: no nodes Psychiatric: normal affect Skin: no rash, normal turgor Dx/Plan (1) Acute encephalopathy Code(s): G93.40 - ENCEPHALOPATHY, UNSPECIFIED Status: Resolved Comment: Likely multifactorial to include embolic CVA, monitor clinical response (2) Acute kidney injury superimposed on CKD Code(s): N17.9 - ACUTE KIDNEY FAILURE, UNSPECIFIED; N18.9 - CHRONIC KIDNEY DISEASE, UNSPECIFIED Status: Resolved (3) Acute respiratory failure with hypoxia Code(s): J96.01 - ACUTE RESPIRATORY FAILURE WITH HYPOXIA Status: Resolved Comment: extubated (4) Cellulitis of foot Code(s): L03.119 - CELLULITIS OF UNSPECIFIED PART OF LIMB Status: Resolved Comment: (5) Cerebrovascular accident, embolic Code(s): I63.9 - CEREBRAL INFARCTION, UNSPECIFIED Status: Acute Qualifiers: Laterality of affected vessel: bilateral Comment: Continue ASA 325mg daily (6) Postoperative anemia Code(s): D64.9 - ANEMIA, UNSPECIFIED Status: Acute Comment: (7) S/P CABG x 3 Code(s): Z95.1 - PRESENCE OF AORTOCORONARY BYPASS GRAFT Status: Acute Comment: bob to lad, rsvg to obt johnny and rca done on 09/27/2017 (8) UTI (urinary tract infection) Status: Resolved Comment: E. coli, tx with Levaquin (9) Uncontrolled hypertension Code(s): I10 - ESSENTIAL (PRIMARY) HYPERTENSION Status: Acute (10) Unstable angina Status: Resolved (11) CAD (coronary artery disease) Code(s): I25.10 - ATHSCL HEART DISEASE OF [place] CORONARY ARTERY W/O ANG PCTRS Status: Chronic Qualifiers: Coronary Disease-Associated Artery/Lesion type: bypass graft [place] vs. transplanted heart: [place] heart Associated angina: with unstable angina Qualified Code(s): I25.700 - Atherosclerosis of coronary artery bypass graft(s) , unspecified, with unstable angina pectoris (12) DM2 (diabetes mellitus, type 2) Status: Chronic Qualifiers: Diabetes mellitus terminal operations manager insulin use: without jail use Diabetes mellitus complication status: with unspecified complications Qualified Code(s) : E11.8 - Type 2 diabetes mellitus with unspecified complications (13) H/O carotid endarterectomy Code(s): Z98.890 - OTHER SPECIFIED POSTPROCEDURAL STATES Status: Chronic (14) H/O: CVA (cerebrovascular accident) Code(s): Z86.73 - PRSNL HX OF TIA (TIA), AND CEREB INFRC W/O RESID DEFICITS Status: Chronic Comment: prior left hemiparesis per records (15) HLD (hyperlipidemia) Code(s): E78.5 - HYPERLIPIDEMIA, UNSPECIFIED Status: Chronic Qualifiers: Hyperlipidemia type: unspecified Qualified Code(s): E78.5 - Hyperlipidemia , unspecified (16) HTN (hypertension) Code(s): I10 - ESSENTIAL (PRIMARY) HYPERTENSION Status: Chronic Qualifiers: Hypertension type: essential hypertension Qualified Code(s): I10 - Essential (primary) hypertension - Plan cont current plan of care, plan discussed w/ family, continue antibiotics, PT/OT , social service coordinator * vaca will be removed today * continue diflucan * wbc count has not changed * will ask pulmonary to decide about discharge * medication reviewed as below * symptomatic treatment * discussed with family. Review of Systems - Review of Systems Constitutional: weakness. negative: fever, chills, sweats, malaise, other Eyes: negative: Pain, Vision Change, Conjunctivae Inflammation, Eyelid Inflammation, Redness, Other ENT: negative: Ear Pain, Ear Discharge, Nose Pain, Nose Discharge, Nose Congestion, Mouth Pain, Mouth Swelling, Throat Pain, Throat Swelling, Other Respiratory: negative: Cough, Dry, Shortness of Breath, Hemoptysis, SOB with Excertion, Pleuritic Pain, Sputum, Wheezing Cardiovascular: negative: chest pain, palpitations, orthopnea, paroxysmal nocturnal dyspnea, edema, light headedness, other Gastrointestinal: Diarrhea. negative: Nausea, Vomiting, Abdominal Pain, Constipation, Melena, Hematochezia, Other Genitourinary: negative: Dysuria, Frequency, Incontinence, Hematuria, Retention , Other Musculoskeletal: negative: Neck Pain, Shoulder Pain, Arm Pain, Back Pain, Hand Pain, Leg Pain, Foot Pain, Other Skin: negative: Rash, Lesions, Inder, Bruising, Other - Medications/Allergies Allergies/Adverse Reactions: Allergies Allergy/AdvReac Type Severity Reaction Status Date / Time chlorpheniramine polistirex Allergy Mild Verified 09/24/17 06:21 [From Tussionex] cephalexin [From Keflex] Allergy Verified 09/24/17 06:21 hydrocodone polistirex Allergy Verified 09/24/17 06:21 [From Tussionex] propofol AdvReac Nausea Verified 09/24/17 06:21 tussin AdvReac Emesis Uncoded 09/24/17 06:21 Medications: Current Medications Acetaminophen (Tylenol) 650 mg PO Q6H PRN PRN Reason: Headache/Fever Or Mild Pain Hydrocodone Bitart/Acetaminophen ([place] 5/325) 1 tab PO Q4H PRN PRN Reason: Moderate Pain (4-6) Last Admin: 10/05/17 08:36 Dose: 1 tab Hydrocodone Bitart/Acetaminophen ([place] 5/325) 2 tab PO Q4H PRN PRN Reason: Severe Pain (7-10) Last Admin: 10/06/17 08:58 Dose: 2 tab Al Hydroxide/Mg Hydroxide (Maalox) 30 ml PO Q4H PRN PRN Reason: Indigestion Amlodipine Besylate (Norvasc) 10 mg PO DAILY [facility] Last Admin: 10/06/17 08:46 Dose: 10 mg Artificial Tears (Tears Naturale) 0 drop EA EYE PRN PRN PRN Reason: Dry Eyes Aspirin (Aspirin) 325 mg PO DAILY [facility] Last Admin: 10/06/17 08:46 Dose: 325 mg Atorvastatin Calcium (Lipitor) 10 mg PO HS [facility] Last Admin: 10/05/17 20:25 Dose: 10 mg Bisacodyl (Dulcolax) 10 mg PO Q12H PRN PRN Reason: Constipation Bisacodyl (Dulcolax) 10 mg [place] Q12H PRN PRN Reason: Constipation Dextrose/Water (Dextrose 50%) 25 gm SLOW IVP PRN PRN PRN Reason: PER HYPOGLYCEMIC PROTOCOL Enoxaparin Sodium (Lovenox) 30 mg SC 2100 [facility] Last Admin: 10/05/17 20:26 Dose: 30 mg Famotidine (Pepcid) 20 mg PO BID [facility] Last Admin: 10/06/17 08:46 Dose: 20 mg Fluconazole (Diflucan) 100 mg PO DAILY [facility] Stop: 10/13/17 09:01 Last Admin: 10/06/17 08:47 Dose: 100 mg Glucagon (Glucagon) 1 mg SC PRN PRN PRN Reason: PER HYPOGLYCEMIC PROTOCOL Guaifenesin (Robitussin Sf) 200 mg PO Q4H PRN PRN Reason: Cough Hydralazine HCl (Apresoline) 10 mg SLOW IVP Q6H PRN PRN Reason: To Maintain SBP< 140mmHG Last Admin: 10/03/17 00:56 Dose: 10 mg Dextrose/Water (D5w) 1,000 mls @ 0 mls/hr IV INF PRN; As Directed PRN Reason: PRN HYPOGLYCEMIC PROTOCOL Insulin Human Regular (Humulin R) 0 units SC Q4H PRN; Protocol PRN Reason: POST OP SLIDING SCALE Last Admin: 10/04/17 06:43 Dose: 2 unit Labetalol HCl (Normodyne) 20 mg SLOW IVP Q15MIN PRN PRN Reason: SBP Greater Than 180 Last Admin: 10/03/17 08:44 Dose: 20 mg Loperamide HCl (Imodium) 2 mg PO PRN PRN PRN Reason: Diarrhea/Loose Stools Magnesium Hydroxide (Milk Of Magnesium) 30 ml PO DAILYPRN PRN PRN Reason: Constipation Metoprolol Tartrate (Lopressor) 25 mg PO BID [facility] Last Admin: 10/06/17 08:49 Dose: 25 mg Mineral Oil/White Petrolatum (Eucerin Cream) 0 gm TOP BIDPRN PRN PRN Reason: Dry Skin Ondansetron HCl (Zofran) 4 mg IVP Q6H PRN PRN Reason: Nausea/Vomiting Last Admin: 09/28/17 15:52 Dose: 4 mg Ondansetron HCl (Zofran Odt) 4 mg PO Q6H PRN PRN Reason: Nausea/Vomiting Phenol (Chloraseptic [place] 180 Ml Bot) 0 ml PO PRN PRN PRN Reason: Sore Throat Potassium Chloride (Kcl) 20 meq IVPB PRN PRN PRN Reason: K level </= 4.0 Last Admin: 10/03/17 08:45 Dose: 20 meq Promethazine HCl (Phenergan) 6.25 mg IM Q4H PRN PRN Reason: Nausea/Vomiting Sodium Chloride (Flush - Normal Saline) 10 ml IVF PRN PRN PRN Reason: Saline Flush Last Admin: 10/06/17 08:30 Dose: 10 ml Sodium Chloride ([place] Nasal [place] 0.65%) 0 ml EA NARE QIDPRN PRN PRN Reason: Nasal Congestion Temazepam (Restoril) 15 mg PO HSPRN PRN PRN Reason: Insomnia Last Admin: 10/05/17 20:25 Dose: 15 mg
[2017-10-06 11:45] VITALS: TEMP 97.8
--- NOTE | 2017-10-06 12:02 | DIS ---
DATE OF ADMISSION: 09/24/2017 DATE OF DISCHARGE: 10/06/2017 DISCHARGE DISPOSITION: Rehabilitation. PRIMARY DISCHARGE DIAGNOSES: Unstable angina, three-vessel CAD, status post CABG, urinary tract infection, cellulitis of foot, acute encephalopathy resolved , bilateral embolic CVA, postoperative anemia, status post respiratory failure with hypoxia, acute on chronic kidney failure, baseline chronic kidney disease stage 3, physical deconditioning. Oral thrush SECONDARY DISCHARGE DIAGNOSES: Hypertension, coronary artery disease, diabetes type 2, history of carotid endarterectomy, history of CVA, dyslipidemia, chronic kidney disease stage 3. PRIMARY PROCEDURE/OPERATION: Cardiac catheterization was performed by Dr. Vinson. CABG was done by Dr. Diaz. Endotracheal intubation and mechanical ventilatory support and central line placement. RADIOLOGICAL INVESTIGATION: Echocardiography showed EF 50% -55%, LVH, moderate mitral regurgitation. Ultrasound of lower extremity negative for any DVT. When she was intubated, after that she had several chest x-rays. CT brain showed evidence of sulcal enhancement of left temporal lobe. MRI brain showed supra and infratentorial infarct. SIGNIFICANT LABORATORY DATA: WBC 15.8, hemoglobin 10.0, platelet 425. INR 1.4. Sodium 137, potassium 3.7, BUN 23, creatinine 1.11, calcium 8.5. Urinalysis suggestive of UTI. LDL 57. DISCHARGE MEDICATIONS: Amlodipine 10 mg p.o. daily, aspirin 325 mg p.o. daily, Lipitor 10 mg p.o. at bedtime, Pepcid 20 mg p.o. b.i.d., TriCor 48 mg p.o. daily , Lasix 20 mg p.o. daily, gabapentin 600 mg p.o. t.i.d., glimepiride 8 mg p.o. daily, metformin 500 mg p.o. daily, Lopressor 25 mg p.o. b.i.d., multivitamin 1 tablet p.o. daily, Relafen 500 mg p.o. b.i.d., potassium chloride 10 mEq p.o. daily, Januvia 100 mg p.o. daily, Peter ophthalmic drop each eye b.i.d., Detrol- LA 4 mg p.o. daily, Kenalog application b.i.d. p.r.n. Diflucan 100 mg po dialy for 5 days for oral thrush which is improving. CONTRAINDICATIONS: None. CODE STATUS: FULL CODE. INPATIENT CONSULTANTS: Dr. Vinson was consulted for unstable angina. Dr. Diaz was consulted for CABG. [facility] was managing ventilator. TEST RESULTS PENDING ON DISCHARGE: None. ALLERGIES: CHLORPHENIRAMINE, KEFLEX, HYDROCODONE. DISCHARGE PLAN: Post hospital, patient is discharged to rehabilitation. Subsequently, patient will follow up with primary care physician, Dr. Jamal Doll. The patient is instructed to follow up with Dr. Diaz and Karel as instructed. HOSPITAL COURSE: A 77-year-old female who was admitted by Dr. Romero on 2017. Please see her H&P for further details. She was admitted for chest pain. Her description of chest pain was consistent with unstable angina. She was admitted to telemetry floor. She was treated with aspirin, Lovenox, beta allison therapy. The patient had echocardiography which showed normal EF. Cardiology was consulted. Cardiology did cardiac catheterization and patient was found with three-vessel coronary artery disease. Patient also had acute on chronic kidney disease, baseline chronic kidney disease stage 3 and that was improved with hydration. On admission, she also had urinary tract infection and that is why she was treated with levofloxacin. After CABG, patient was in CCU and cardiovascular surgeon was managing. Patient 's hospital course was complicated by stroke. Initially CT brain suspected stroke and MRI brain showed supra and infratentorial embolic phenomena. The patient also extubated eventually and she finished complete course of antibiotic therapy with levofloxacin while in hospital. She was also given few doses of Diflucan by [facility] for oral thrush. Her white count was static but she did not have any signs of infection clinically by the time of discharge. On discharge, we did not prescribe any antibiotic therapy. but she will finish diflucan for another 5 days for oral thrush which is already improving. Patient has completed antibiotic course while in hospital. Her urinary tract infection is treated while in hospital with levofloxacin. After extubation, patient was transferred to [facility] where speech therapy cleared her for this oral intake. Patient was eating well. She also doing relatively well with physical therapy, but she has physical weakness and that is why she was requiring placement to rehab. With help of case consultant, we arranged rehab placement. All consultants cleared her for discharge as well including Pulmonary, Cardiology, and CT surgeon. Paperwork for discharge done. Discharge medication reconciliation done. The patient is seen and examined at bedside today. Please see my progress note from today for further details. Total time spent on discharge was 31 minutes. MTDD
--- NOTE | 2017-10-06 12:08 | PRG ---
DATE OF SERVICE: 10/06/2017 SERVICE: Pulmonary Medicine INTERVAL HISTORY: The patient is doing great from a respiratory standpoint. She is breathing comfor tably. She denies any chest discomfort, nausea, vomiting, fevers or chills. Otherwise, there has be en no interval change to her condition. She has been weaned back on to room air. PHYSICAL EXAMINATION: VITAL SIGNS: Afebrile, pulse 73, blood pressure 118/56, respirations 16, saturation 93% on room air. GENERAL: The patient is awake, alert, in no apparent distress. LUNGS: Decent air entry. Crackles are still present, but improved. No prolonged expiratory phase o r wheezing is appreciated. HEART: Normal rate, regular. ABDOMEN: Soft, nontender, nondistended. Bowel sounds are positive. MUSCULOSKELETAL: No cyanosis or clubbing. There is no pitting in the bilateral lower extremities. NEUROLOGIC: Grossly nonfocal. LABORATORY DATA: WBC 15.8, hemoglobin 10.0, platelets 425,000. Blood sugar ranges from 118-203. ASSESSMENT: 1. Acute hypoxic respiratory failure. 2. Non-ST elevation myocardial infarction. 3. Coronary artery disease, severe. 4. Coronary bypass graft, postop day #8. 5. 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 6. Chronic diastolic and valvular heart failure. 7. Thrush. DISCUSSION AND PLAN: From a purely respiratory perspective, the patient is stable for discharge from the hospital. She will need a repeat WBC in the outpatient setting in 1-2 weeks. Certainly, if she starts having increasing signs of sepsis, she will need to return to the hospital. Pulmonary Critic al Care will continue to follow along if she remains in house. We will continue working on mobilizat ion efforts today.
[2017-10-06 15:04] VITALS: BP 125/101
== END 2017-10-06 15:09 | DRG 233 ==
LOC: ERS 03:50 → IMCU/EMU 06:04 → CCU 09-25 14:04 → IMCU/EMU 10-03 13:37 → 2NO 10-04 17:46
PROVIDERS: ADMIT Hospitalist; ATTEND Hospitalist
PROC: 4A023N7 Measurement of Cardiac Sampling and Pressure, Left Heart, Percutaneous Approach (ICD-10-PCS; 2017-09-26)
PROC: B2111ZZ Fluoroscopy of Multiple Coronary Arteries using Low Osmolar Contrast (ICD-10-PCS; 2017-09-26)
PROC: B2151ZZ Fluoroscopy of Left Heart using Low Osmolar Contrast (ICD-10-PCS; 2017-09-26)
PROC: 02100Z9 Bypass Coronary Artery, One Artery from Left Internal Mammary, Open Approach (ICD-10-PCS; principal; 2017-09-27)
PROC: 021109W Bypass Coronary Artery, Two Arteries from Aorta with Autologous Venous Tissue, Open Approach (ICD-10-PCS; 2017-09-27)
PROC: 06BQ0ZZ Excision of Left Saphenous Vein, Open Approach (ICD-10-PCS; 2017-09-27)
PROC: 5A1221Z Performance of Cardiac Output, Continuous (ICD-10-PCS; 2017-09-27)
PROC: 0B9P0ZZ Drainage of Left Pleura, Open Approach (ICD-10-PCS; 2017-09-27)
PROC: 5A1955Z Respiratory Ventilation, Greater than 96 Consecutive Hours (ICD-10-PCS; 2017-09-27)
DX: I21.4 Non-ST elevation (NSTEMI) myocardial infarction (principal); J96.01 Acute respiratory failure with hypoxia; I50.33 Acute on chronic diastolic (congestive) heart failure; G93.40 Encephalopathy, unspecified; I63.443 Cerebral infarction due to embolism of bilateral cerebellar arteries; N39.0 Urinary tract infection, site not specified; J90 Pleural effusion, not elsewhere classified; B37.0 Candidal stomatitis; I13.0 Hypertensive heart and chronic kidney disease with heart failure and stage 1 through stage 4 chronic kidney disease, or unspecified chronic kidney disease; N17.9 Acute kidney failure, unspecified; L03.115 Cellulitis of right lower limb; I16.1 Hypertensive emergency; E78.5 Hyperlipidemia, unspecified; E11.22 Type 2 diabetes mellitus with diabetic chronic kidney disease; N18.3 Chronic kidney disease, stage 3 (moderate); I25.110 Atherosclerotic heart disease of native coronary artery with unstable angina pectoris; D64.9 Anemia, unspecified; B96.20 Unspecified Escherichia coli [E. coli] as the cause of diseases classified elsewhere; Z86.73 Personal history of transient ischemic attack (TIA), and cerebral infarction without residual deficits; Z88.8 Allergy status to other drugs, medicaments and biological substances; Z88.1 Allergy status to other antibiotic agents; Z88.5 Allergy status to narcotic agent; Z79.84 Long term (current) use of oral hypoglycemic drugs; Z79.899 Other long term (current) drug therapy
CPT/HCPCS: 36415; 36416; 36430; 70450; 70551; 71045; 80048; 80061; 81001; 82553; 82805; 83880; 84484; 85025; 85610; 85730; 86850; 86900; 86901; 87070; 87077; 87086; 87186; 87205; 89220; 93005; 93010; 93306; 93458; 93970; 94002; 94003; 94150; 94660; 96374; A4216; C1769; G8978-GP-CJ; G8978-GP-CN; G8979-GP-CH; G8979-GP-CM; G8987-GO-CK; G8988-GO-CJ; G8996-GN-CI; G8996-GN-CN; G8997-GN-CI; G8997-GN-CL; J0360; J1644; J1650; J1815; J1940; J1956; J2001; J2060; J2150; J2270; J2405; J2440; J2704; J2720; J3010; J3475; J3480; J7050; P9045; S0028

== ENCOUNTER 2017-11-28 02:35 | Inpatient (IN) | payer MEDICARE, OTHER ==
[2017-11-28] MEDS ORDERED: Nitroglycerin 2% Ointment 1 INCH/1 GM Packet ONE (03:24)
[2017-11-28] MEDS ORDERED: Nitroglycerin 0.4 MG TAB (25 Tab Bottle) ONE (03:24)
[2017-11-28] MEDS ORDERED: Furosemide 40 MG/4 ML VIAL ONE (03:24)
[2017-11-28] MEDS ORDERED: Aspirin 325 MG TAB ONE (03:33)
[2017-11-28] MEDS ORDERED: hydrALAZINE 20 MG/ML VIAL SLOW IVP PRN (07:40)
[2017-11-28] MEDS ORDERED: Dextrose 50% Abboject 50 ML SYRINGE SLOW IVP PRN (07:40)
[2017-11-28] MEDS ORDERED: HumaLOG 300 UNITS/3 ML VIAL SC PRN ×2 (07:40)
[2017-11-28] MEDS ORDERED: Acetaminophen 325 MG TAB PO PRN (07:40)
[2017-11-28] MEDS ORDERED: Dextrose 5% in Water 1,000 ML IV PRN (07:40)
[2017-11-28] MEDS ORDERED: Acetaminophen/Codeine 30-300mg Tablet PO PRN (07:40)
[2017-11-28] MEDS ORDERED: Milk Of Magnesia 30 ML UDCUP PO PRN (07:40)
[2017-11-28] MEDS ORDERED: Mag-Al 1200 mg/1200 mg/30 ML UDCUP PO PRN (07:40)
[2017-11-28] MEDS ORDERED: Cetirizine HCl 10 MG TAB PO PRN (07:40)
[2017-11-28] MEDS ORDERED: Loratadine 10 MG TAB PO PRN (07:46)
--- NOTE | 2017-11-28 07:59 | HP ---
PRIMARY CARE PHYSICIAN: Dr. Doll. CHIEF COMPLAINT: Shortness of breath. HISTORY OF PRESENT ILLNESS: Ms. Blair is a very pleasant 77-year-old female that has a history of coronary artery disease. She was recently admitted to our facility after she experienced a non-ST s egment elevated MA and she had a cardiac catheterization done and was found to have multivessel coron eugenio artery disease and has had a coronary artery bypass grafting surgery. She was discharged to reha bilitation and then subsequently discharged home. She has been home since the latter part of October d says she was doing well until yesterday when she was trying to get some sewing materials around 5:0 0 p.m. and then started feeling short of breath. She says it is a kind of snick up on her. She also felt soreness across her chest which was actually new because after her bypass surgery she says she really did not experience any pain. She says it was not quite as severe as the pain she experienced when she had her NSTEMI, but it was definitely noticeable and with the shortness of breath, it got wo rse with exertion. She also noticed a cough which is shallow and dry. She thought she might be star ting to get bronchitis and she has always had some lower extremity edema off and on. For this reason , she came to the emergency room for evaluation. There, she had a chest x-ray done which showed some increase in pulmonary vascular markings as well as a left pleural effusion and her BNP was elevated and she is being admitted for CHF exacerbation. She denies having any PND or orthopnea and she says lower extremity edema has been off and on even prior to having her surgery. REVIEW OF SYSTEMS: All systems were reviewed and are negative except for that mentioned in the histo ry of present illness. PAST MEDICAL HISTORY: Significant for coronary artery disease, recent NSTEMI in 09/2017, diabetes me llitus, hypertension, hyperlipidemia, chronic bronchitis, chronic kidney disease stage 3, cerebrovasc ular accident with left-sided weakness. PAST SURGICAL HISTORY: She has had a bypass surgery, embolic stroke, cataract surgery, back surgery, D&C, and excision of a Headley's neuroma. ALLERGIES: TUSSIN. FAMILY HISTORY: Significant for coronary artery disease in multiple family members. Her father and grandfather both had massive MIs and also diabetes in her brother. SOCIAL HISTORY: She is , has two children. She is a nonsmoker, nondrinker. She is a former smoker. She quit in 1991 and her code status is DNR and this is per the patient and her medical pow er of green end man is her sister, Tiffanie Suh and her niece also can serve as a decision maker. MEDICATIONS: She says that all of her medications for the most part are the same except for she was started on atorvastatin since her last discharge and these include Januvia 100 mg daily, metformin 50 0 mg daily, Kenalog cream, Detrol-LA 4 mg daily, potassium chloride 10 mEq daily, Relafen 500 mg twic e a day, metoprolol 25 mg daily, losartan 50 mg daily, glimepiride 8 mg daily, gabapentin 600 mg t.i. d., Lasix 20 mg daily, TriCor 48 mg daily, Zyrtec 10 mg as needed, Lipitor 20 mg at bedtime, aspirin 325 mg daily, amlodipine 10 mg daily, Tylenol #3 twice a day as needed. ALLERGIES: She also says CHLORPHENIRAMINE, CEPHALEXIN, HYDROCODONE, PROPOFOL and POLISTIREX. PHYSICAL EXAMINATION: GENERAL: She is alert and oriented. She appears to be in no acute distress. VITAL SIGNS: Blood pressure was 156/71, heart rate 98, respiratory rate of 27. GENERAL APPEARANCE: She is well-developed and well-nourished. HEENT: Pupils are equal, round, and reactive. Extraocular muscles are intact. Her sclerae are anic teric. Throat; no erythema, no exudates. She is edentulous. NECK: There is no adenopathy, but she did have bilateral carotid bruits. LUNGS: Clear with the exception of some decreased breath sounds at the left base as well as some ral es bilaterally. No wheezing or rhonchi. CARDIOVASCULAR: She had a normal S1, S2. I did not appreciate an S3 or S4. No murmurs, clicks or r ubs. ABDOMEN: Obese, it is soft, it is nontender, nondistended. Positive for bowel sounds. No rebound, no guarding. EXTREMITIES: She does have some edema, it is nonpitting, right leg greater than the left. Some mild erythema. She has got palpable dorsalis pedis pulses bilaterally. NEUROLOGIC: Neurologically, the exam is nonfocal. LABORATORY DATA AND IMAGING DATA: Her white blood cell count 13.8, hemoglobin 11.5, hematocrit is 36 .3 and platelet count is 351. Sodium 138, potassium 4.6, chloride is 101, CO2 is 23, BUN of 27, crea tinine 1.75. Troponin was 0.048 and natriuretic peptide is 810. Chest x-ray again by my reading kamilah wed some mild cardiomegaly. Sternal wires are appreciated. She had a left pleural effusion and incr eased pulmonary vascular markings. She had an EKG in which it was sinus rhythm, the rate is 96. She had some T-wave inversions in 3 and aVF as well as Q-waves in V1 through V3. Echo was done back in September and at that time her ejection fraction was 50%-55% and she had some concentric LVH. ASSESSMENT AND PLAN: 1. This is a pleasant 77-year-old female who presents to the emergency room after experiencing short ness of breath as well as some chest pain. She was found to have volume overload, both clinically an d radiographically. Also, she has an elevated proBNP from her previous admission; therefore, it is l ikely that she is experiencing congestive heart failure exacerbation. Her EF was normal on her last admission, but with the history of a recent MA, it is prudent to go ahead and repeat the echo during this hospital stay. She has already been given IV Lasix and we will continue that while she is here. We will need to reconcile and restart her home medications and she is already on an ARB as well as a beta allison. We will consult Dr. Vinson for further recommendations. 2. With regards to diabetes mellitus, we will continue Januvia. Her renal function may be precludin g metformin. Therefore, we will go ahead and hold that for now and place her on sliding scale insuli n. 3. For hypertension, we will continue her usual antihypertensive medications as well as p.r.n. hydra lazine as needed. We will go ahead and continue to trend her cardiac enzymes and further recommendat ions will be based on her progress.
[2017-11-28] MEDS ORDERED: Aspirin 325 MG TAB PO SCH (09:00)
[2017-11-28] MEDS ORDERED: Non-Formulary Item 1 EACH (Potassium Chloride [Potassium Chloride] 10 MEQ) PO SCH (09:00)
[2017-11-28] MEDS ORDERED: Non-Formulary Item 1 EACH (Losartan Potassium [Cozaar] 50 MG) PO SCH (09:00)
--- NOTE | 2017-11-28 09:03 | ULT ---
PRELIMINARY REPORT/[facility]/EMERGENTY AFTER-HOURS PROCEDURE US Duplex Bilateral Lower Extremity Veins CLINICAL HISTORY: 77 years old, female; Signs and symptoms; Other: Swelling ble, hypoxia; Prior surge ry; Surgery date: 1-6 months; Surgery type: Vein harvest for cab TECHNIQUE: Real-time duplex ultrasound scan of the bilateral lower extremity veins integrating Bmode two-dimensional vascular structure, Doppler spectral analysis, color flow Doppler imaging and tramaine shahram. COMPARISON: No relevant prior studies available. FINDINGS: Right deep veins: Unremarkable. No DVT in the right common femoral, femoral, proximal deep femoral or popliteal veins. The veins demonstrate normal color flow, are normally compressible, with normal pha sic flow and/or augmentation response. Right superficial veins: Unremarkable. No thrombus in the visualized right great saphenous vein. Left deep veins: Unremarkable. No DVT in the left common femoral, femoral, proximal deep femoral or p opliteal veins. The veins demonstrate normal color flow, are normally compressible, with normal phasi c flow and/or augmentation response. Left superficial veins: Unremarkable. No thrombus in the visualized left great saphenous vein. Soft tissues: No acute findings. No popliteal cyst. IMPRESSION: - Negative for DVT. Thank you for allowing us to participate in the care of your patient. Dictated and Authenticated by: Venu Sears MD 11/28/2017 4:59 AM Central Time ([place] & [place]) FINAL REPORT ULTRASOUND WITH DOPPLER DUPLEX VENOUS LOWER EXTREMITY BILATERAL CPT: 06997 ICD-10-PCS: B54D HISTORY: Bilateral lower extremity edema, hypoxia. TECHNIQUE: Color flow Doppler, spectral waveform analysis of pulsed Doppler, and castillo-scale imaging with tramaine shahram and augmentation, were used to evaluate the bilateral common femoral, femoral, popliteal, insurance processor ior tibial, and superficial femoral, veins; and the proximal portions of the profunda femoral and gre ater saphenous, veins. FINDINGS: Agree with the preliminary interpretation provided above. IMPRESSION: There is no evidence of deep vein thrombosis within the imaged bilateral lower extremities. POS: [facility]
--- NOTE | 2017-11-28 09:21 | RAD ---
AP CHEST: Indication: History of dyspnea. Comparison: 11-28-17 FINDINGS: Cardiomegaly with pulmonary vascular congestion and small bilateral pleural effusions persist. No pne umothorax is evident. Chronic osseous changes are similar. IMPRESSION: Persistent findings of CHF. POS: [facility]
[2017-11-28] MEDS: TROSPIUM 20 MG TABLET PO SCH ×2 (09:35→20:53)
[2017-11-28] MEDS: Alogliptin 25 MG TAB PO SCH (09:35)
[2017-11-28] MEDS: Losartan 25 MG TAB PO SCH (09:35)
[2017-11-28] MEDS: Metoprolol Tartrate 25 MG TAB PO SCH ×2 (09:36→20:53)
[2017-11-28] MEDS: Amlodipine 10 MG TAB PO SCH (09:36)
[2017-11-28] MEDS: Fenofibrate 48 MG TAB PO SCH (09:36)
[2017-11-28] MEDS: Glimepiride 4 MG TAB PO SCH (09:36)
[2017-11-28] MEDS: Potassium Chloride 10 MEQ TAB PO SCH (09:36)
[2017-11-28] MEDS: Gabapentin 300 MG CAP PO SCH ×3 (09:36→20:52)
--- NOTE | 2017-11-28 11:27 | CON ---
DATE OF CONSULTATION: 11/28/2017 REASON FOR CONSULTATION: Shortness of breath. HISTORY OF PRESENT ILLNESS: Ms. Blair is a very pleasant 77-year-old woman seen and evaluated in the past. She has a history of CAD status post bypass surgery, was complicated by CVA. She was in [facility] several days in September. She was then discharged to rehabilitation. She states she has been doing well, developed shortness of breath over the last several days. No namrata st pain or pressure noted. She does have associated cough or phlegm production. Her bedside echo di d suggest a normal LVEF. PAST MEDICAL HISTORY: As above including a non-Q [place], diabetes mellitus, hyperlipidemia, hypertension , chronic kidney disease, and CVA. PAST SURGICAL HISTORY: Cataract surgery, back surgery, pedro luis neuroma. ALLERGIES: None. FAMILY HISTORY: Positive for CAD. REVIEW OF SYSTEMS: Ten point review of systems reviewed and as above, otherwise negative. PHYSICAL EXAMINATION: GENERAL: Patient is a pleasant female who is in no acute distress. The patient appears her stated a ge. VITAL SIGNS: Blood pressure 149/68, pulse 85, temperature 97.5. NEUROLOGIC: The patient is alert and oriented times 3 with no focal neurologic deficits. HEENT: Sclerae without icterus. Mouth has moist mucous membranes with normal pallor. NECK: No JVD. Carotid upstroke brisk. No bruits bilaterally. LUNGS: Clear to auscultation with unlabored respirations. BACK: No scoliosis or kyphosis. CARDIAC: Regular rate and rhythm with normal S1 and S2. No S3 or S4 noted. No significant rubs, mu rmurs, thrills, or gallops noted throughout the precordium. PMI is not displaced. There is no ana luisa ternal heave. ABDOMEN: Soft, nontender, nondistended. No peritoneal signs present. No hepatosplenomegaly. No ab normal striae. EXTREMITIES: 2+ femoral and 2+ dorsalis pedis pulses. No cyanosis, clubbing, or edema. SKIN: No gross abnormalities. PERTINENT LABORATORY DATA: Hemoglobin 11.5, creatinine 1.75. The GFR 28. BNP 810. Troponin 0.048. EKG normal sinus rhythm. Nonspecific ST-T wave changes. IMPRESSION: 1. Acute diastolic heart failure. 2. Coronary artery disease. 3. Status post bypass surgery. 4. Cerebrovascular accident. RECOMMENDATIONS: Bedside echo appeared to be within normal limits. We will have an official this af yajaira. At this point, she has been placed on IV Lasix at 40 b.i.d. We would decrease aspirin to 8 1 q.a.m. Continue atorvastatin and Norvasc. We would also continue beta allison therapy, although osito alves change metoprolol tartrate to succinate.
[2017-11-28] MEDS: Heparin 5,000 UNITS/ML VIAL SC SCH ×3 (11:48→20:53)
[2017-11-28] MEDS ORDERED: Furosemide 40 MG/4 ML VIAL SLOW IVP SCH (14:00)
[2017-11-28] MEDS: Atorvastatin Calcium 20 MG TAB PO SCH (20:52)
[2017-11-28] MEDS ORDERED: Atorvastatin Calcium 10 MG TAB PO SCH (21:00)
--- NOTE | 2017-11-29 05:51 | PDOC.CTH ---
Cardiology Progress Note - Objective Vital Signs Temp Pulse Resp BP Pulse Ox 11/29/17 04:00 98 F 66 17 123/60 95 11/28/17 20:00 98.2 F 68 16 116/58 L 97 Weight 195 lb 11/27/17 11/28/17 11/29/17 06:59 06:59 06:59 Intake Total 720 Output Total 500 Balance 220 - Assessment/Plan SOB Acute diastolic dysfunction CAD s/p CABG Increase lasix; no changes in weight noted overnight Decrease ASA to 81mg QAM Na restriction Increase ambulation
[2017-11-29 06:32] LABS: Anion Gap 15 mmol/L (10-20); BUN (Urea Nitrogen) 30 mg/dL (9.8-20.1); Calc. Creatinine Clearance 38 mL/min (70-130); Calcium 8.9 mg/dL (7.8-10.44); Carbon Dioxide 25 mmol/L (23-31); Chloride 102 mmol/L (98-107); Estimated GFR-MDRD 29; Glucose 83 mg/dL (83-110); Potassium 4.5 mmol/L (3.5-5.1); Sodium 137 mmol/L (136-145)
[2017-11-29] MEDS: Furosemide 40 MG/4 ML VIAL SLOW IVP SCH ×2 (06:34→14:15)
[2017-11-29 06:45] LABS: #Basophils 0.1 thou/uL (0.0-0.2); #Eosinphils 0.6 thou/uL (0.0-0.7); #Lymphocytes 2.3 thou/uL (1.20-3.40); #Monocytes 0.8 thou/uL (0.11-0.59); #Neutrophils 3.8 thou/uL (1.40-6.50); %Basophils 0.7 % (0.0-1.0); %Eosinophils 8.5 % (0.0-10.0); %Lymphocytes 30.1 % (21.0-51.0); %Monocytes 10.7 % (0.0-10.0); %Neutrophils 49.9 % (42.0-75.0); Mean Corpuscular HGB CONC 33.9 g/dL (32.0-36.0); Mean Corpuscular Volume 88.5 fL (78.0-98.0); Mean Platelet Volume 7.3 fL (7.4-10.4); Platelet Count 275 thou/uL (130-400); RBC Distribution Width 12.3 % (11.5-14.5); Red Blood Cell (RBC) Count 3.67 mill/uL (4.20-5.40); White Blood Cell (WBC) Count 7.6 thou/uL (4.8-10.8)
[2017-11-29] MEDS: Losartan 25 MG TAB PO SCH (08:37)
[2017-11-29] MEDS: Glimepiride 4 MG TAB PO SCH (08:38)
[2017-11-29] MEDS: Fenofibrate 48 MG TAB PO SCH (08:38)
[2017-11-29] MEDS: Metoprolol Tartrate 25 MG TAB PO SCH ×3 (08:38→21:07)
[2017-11-29] MEDS: Gabapentin 300 MG CAP PO SCH ×3 (08:38→21:06)
[2017-11-29] MEDS: TROSPIUM 20 MG TABLET PO SCH ×2 (08:38→21:06)
[2017-11-29] MEDS: Aspirin 81 mg Enteric Coated Tablet PO SCH (08:38)
[2017-11-29] MEDS: Alogliptin 25 MG TAB PO SCH (08:38)
[2017-11-29] MEDS: Amlodipine 10 MG TAB PO SCH (08:38)
[2017-11-29] MEDS: Potassium Chloride 10 MEQ TAB PO SCH (08:39)
[2017-11-29] MEDS: Heparin 5,000 UNITS/ML VIAL SC SCH ×3 (09:40→21:07)
--- NOTE | 2017-11-29 09:42 | PDOC.PN ---
- Subjective Encounter Start Date: 11/29/17 Encounter Start Time: 09:40 Ms. Blair was seen today in follow-up of CHF exacerbation. She says she feels much better. She is less short of breath. She would like to go home soon. - Objective Resuscitation Status: Resuscitation Status DNR:Do Not Resuscitate MAR Reviewed: Yes Vital Signs & Weight: Vital Signs (12 hours) Temp Pulse Resp BP Pulse Ox 11/29/17 08:39 97.9 F 70 16 125/60 93 L 11/29/17 08:38 66 11/29/17 04:00 98 F 66 17 123/60 95 Weight Weight 195 lb I&O: 11/28/17 11/29/17 11/30/17 06:59 06:59 06:59 Intake Total 720 Output Total 500 Balance 220 Result Diagrams: 11/29/17 05:19 11/29/17 05:19 Additional Labs: Accuchecks 11/29/17 11/28/17 11/28/17 05:47 20:55 16:32 POC Glucose 87 200 H 109 11/28/17 11:00 POC Glucose 198 H Phys Exam - Physical Examination HEENT: PERRLA, sclera anicteric Respiratory: no wheezing, no rhonchi + rales at both bases L>R Cardiovascular: RRR, no significant murmur, no rub Gastrointestinal: soft, non-tender, no distention, positive bowel sounds Musculoskeletal: edema present Neurological: non-focal Dx/Plan (1) Acute diastolic heart failure Code(s): I50.31 - ACUTE DIASTOLIC (CONGESTIVE) HEART FAILURE Status: Acute (2) S/P CABG x 3 Code(s): Z95.1 - PRESENCE OF AORTOCORONARY BYPASS GRAFT Status: Acute Comment: bob to lad, rsvg to obt johnny and rca done on 09/27/2017 (3) CAD (coronary artery disease) Code(s): I25.10 - ATHSCL HEART DISEASE OF [place] CORONARY ARTERY W/O ANG PCTRS Status: Chronic Qualifiers: Coronary Disease-Associated Artery/Lesion type: bypass graft [place] vs. transplanted heart: [place] heart Associated angina: with unstable angina Qualified Code(s): I25.700 - Atherosclerosis of coronary artery bypass graft(s) , unspecified, with unstable angina pectoris (4) DM2 (diabetes mellitus, type 2) Status: Chronic Qualifiers: Diabetes mellitus care home insulin use: without care home use Diabetes mellitus complication status: with unspecified complications Qualified Code(s) : E11.8 - Type 2 diabetes mellitus with unspecified complications (5) HTN (hypertension) Code(s): I10 - ESSENTIAL (PRIMARY) HYPERTENSION Status: Chronic Qualifiers: Hypertension type: essential hypertension Qualified Code(s): I10 - Essential (primary) hypertension (6) Acute respiratory failure with hypoxia Code(s): J96.01 - ACUTE RESPIRATORY FAILURE WITH HYPOXIA Status: Resolved Comment: extubated - Plan * Acute respiratory failure- due to Acute diastolic heart failure- she has not diueresed well overnight- agree with the higher lasix dose * Continue to restrict sodium intake * Echo results noted * Chronic kidney disease- stable * HTN- blood pressure is stable * DM- blood glucose is stable.
[2017-11-29 12:29] VITALS: BMI 29.6
[2017-11-29] MEDS: Atorvastatin Calcium 20 MG TAB PO SCH (21:06)
[2017-11-29] MEDS ORDERED: diphenhydrAMINE 25 MG CAP PO PRN (23:22)
[2017-11-30 06:05] LABS: Anion Gap 14 mmol/L (10-20); BUN (Urea Nitrogen) 34 mg/dL (9.8-20.1); Calc. Creatinine Clearance 37 mL/min (70-130); Calcium 9.1 mg/dL (7.8-10.44); Carbon Dioxide 27 mmol/L (23-31); Chloride 102 mmol/L (98-107); Estimated GFR-MDRD 28; Glucose 86 mg/dL (83-110); Potassium 3.9 mmol/L (3.5-5.1); Sodium 139 mmol/L (136-145)
[2017-11-30] MEDS: Furosemide 40 MG/4 ML VIAL SLOW IVP SCH (06:09)
[2017-11-30] MEDS ORDERED: Alogliptin 25 MG TAB PO SCH (09:00)
--- NOTE | 2017-11-30 09:02 | PDOC.CTH ---
Cardiology Progress Note - Subjective Patient doing well overall. swelling has completely resolved. No SOB. Walking in hallway. - Objective Vital Signs Temp Pulse Resp BP Pulse Ox 11/30/17 04:00 98.2 F 66 16 159/95 H 95 Admit Weight 193 lb 5.526 oz Weight 185 lb 8 oz 11/29/17 11/30/17 12/01/17 06:59 06:59 06:59 Intake Total 720 1700 Output Total 500 5650 Balance 220 -3950 - Physical Examination General/Neuro: alert & oriented x3 Lungs: CTA Heart: RRR Abdomen: NT/ND Extremities: other: (no edema) - Telemetry Telemetry Rhythm: SR - Labs Result Diagrams: 11/29/17 05:19 11/30/17 04:21 - Assessment/Plan 1. Acute on chronic diastolic dysfunction 2. CAD s/p CABG 3. HTN 4. DM-II Stable. Ok for discharge. Discussed dietary compliance with patient and need for f/u in 2-3 weeks. She agrees to plan of care.
[2017-11-30 09:05] VITALS: TEMP 97.9
[2017-11-30] MEDS: Fenofibrate 48 MG TAB PO SCH (09:07)
[2017-11-30] MEDS: TROSPIUM 20 MG TABLET PO SCH (09:07)
[2017-11-30] MEDS: Amlodipine 10 MG TAB PO SCH (09:07)
[2017-11-30] MEDS: Gabapentin 300 MG CAP PO SCH (09:07)
[2017-11-30] MEDS: Aspirin 81 mg Enteric Coated Tablet PO SCH (09:07)
[2017-11-30] MEDS: Glimepiride 4 MG TAB PO SCH (09:08)
[2017-11-30] MEDS: Metoprolol Tartrate 25 MG TAB PO SCH (09:08)
[2017-11-30] MEDS: Potassium Chloride 10 MEQ TAB PO SCH (09:08)
[2017-11-30] MEDS: Losartan 25 MG TAB PO SCH (09:08)
[2017-11-30] MEDS: Heparin 5,000 UNITS/ML VIAL SC SCH (09:11)
--- NOTE | 2017-11-30 10:25 | PDOC.PN ---
- Subjective Encounter Start Date: 11/30/17 Encounter Start Time: 10:23 Ms. Blair was seen today in follow-up of CHF exacerbation. She says she feels much better. She denies CP or dyspnea. - Objective Resuscitation Status: Resuscitation Status DNR:Do Not Resuscitate MAR Reviewed: Yes Vital Signs & Weight: Vital Signs (12 hours) Temp Pulse Resp BP Pulse Ox 11/30/17 09:07 66 11/30/17 09:02 97.9 F 17 131/60 95 11/30/17 04:00 98.2 F 66 16 159/95 H 95 Weight Admit Weight 193 lb 5.526 oz Weight 185 lb 8 oz I&O: 11/29/17 11/30/17 12/01/17 06:59 06:59 06:59 Intake Total 720 1700 Output Total 500 5650 Balance 220 -3950 Result Diagrams: 11/29/17 05:19 11/30/17 04:21 Additional Labs: Accuchecks 11/30/17 11/29/17 11/29/17 05:34 20:33 17:10 POC Glucose 82 123 H 96 11/29/17 10:58 POC Glucose 106 Phys Exam - Physical Examination HEENT: PERRLA Respiratory: no wheezing, clear to auscultation bilateral Cardiovascular: RRR, no significant murmur, no rub Gastrointestinal: soft, non-tender, no distention, positive bowel sounds Musculoskeletal: edema present Dx/Plan (1) Acute diastolic heart failure Code(s): I50.31 - ACUTE DIASTOLIC (CONGESTIVE) HEART FAILURE Status: Acute (2) S/P CABG x 3 Code(s): Z95.1 - PRESENCE OF AORTOCORONARY BYPASS GRAFT Status: Acute Comment: bob to lad, rsvg to obt johnny and rca done on 09/27/2017 (3) CAD (coronary artery disease) Code(s): I25.10 - ATHSCL HEART DISEASE OF [place] CORONARY ARTERY W/O ANG PCTRS Status: Chronic Qualifiers: Coronary Disease-Associated Artery/Lesion type: bypass graft [place] vs. transplanted heart: [place] heart Associated angina: with unstable angina Qualified Code(s): I25.700 - Atherosclerosis of coronary artery bypass graft(s) , unspecified, with unstable angina pectoris (4) DM2 (diabetes mellitus, type 2) Status: Chronic Qualifiers: Diabetes mellitus terminal block assembler insulin use: without terminal block assembler use Diabetes mellitus complication status: with unspecified complications Qualified Code(s) : E11.8 - Type 2 diabetes mellitus with unspecified complications (5) HTN (hypertension) Code(s): I10 - ESSENTIAL (PRIMARY) HYPERTENSION Status: Chronic Qualifiers: Hypertension type: essential hypertension Qualified Code(s): I10 - Essential (primary) hypertension (6) Acute respiratory failure with hypoxia Code(s): J96.01 - ACUTE RESPIRATORY FAILURE WITH HYPOXIA Status: Resolved Comment: extubated - Plan * Acute Diastolic Heart failure- compensated * CAD- stable * She is stable for discharge home.
--- NOTE | 2017-11-30 12:59 | DIS ---
DATE OF ADMISSION: 11/28/2017 DATE OF DISCHARGE: 11/30/2017 DISCHARGE DISPOSITION: Home. PRIMARY DISCHARGE DIAGNOSES: 1. Acute diastolic heart failure exacerbation. 2. Acute respiratory failure with hypoxemia. 3. Coronary artery disease status post coronary artery bypass graft. 4. Hypertension. 5. Diabetes mellitus, type 2. 6. Dyslipidemia. 7. History of chronic bronchitis. 8. Chronic kidney disease, stage 3. 9. Cerebrovascular accident with left-sided weakness. CODE STATUS: DNR. ALLERGIES: CHLORPHENIRAMINE, POLISTIREX, CEPHALEXIN, HYDROCODONE, and TUSSIN. PROCEDURES DONE DURING ADMISSION: The patient had a lower extremity venous Doppler of both lower ext remities, which are negative for DVT, had an echocardiogram, in which the estimated EF was 50% to 55% . There was mild left atrial enlargement, moderate regurge. HOSPITAL COURSE: Ms. Blair is a pleasant 77-year-old female that has a history of coronary artery disease. In fact, she was recently hospitalized for a non-ST segment elevated [place] and she is status post bypass surgery. She was admitted due to severe shortness of breath and volume overload. She wa s found to be in acute diastolic heart failure. She was admitted and diuresed and actually improved dramatically over the course of the next couple of days. She diuresed over 4 liters of fluids. Echo cardiogram demonstrated a preserved ejection fraction with some diastolic dysfunction. Her Lasix dos e was increased as well as metoprolol was increased to twice a day dosing. She was instructed on t and will be discharged home today with close outpatient followup.
[2017-11-30 13:53] VITALS: BP 120/58
[2017-12-01] MEDS ORDERED: Furosemide 40 MG TAB PO SCH (07:30)
--- NOTE | 2017-12-01 13:40 | EKG ---
Test Reason : Blood Pressure : / mmHG Vent. Rate : 089 BPM Atrial Rate : 089 BPM P-R Int : 130 ms QRS Dur : 090 ms QT Int : 364 ms P-R-T Axes : 022 070 -55 degrees QTc Int : 442 ms Normal sinus rhythm Possible Left atrial enlargement Anterior infarct , age undetermined No STEMI Abnormal ECG Confirmed by ARLYN JEROME M.D. ([id number]), editor trade journal BRENNAN ZHONG ([id number]) on 12/01/2017 1:40:00 PM Referred By: Confirmed By:ARLYN JEROME M.D.
== END 2017-11-30 13:35 | disposition home or self-care (01) | DRG 291 ==
LOC: ERS 02:35 → 2NO 05:00
PROVIDERS: ADMIT Internal Medicine Infectious Disease; ATTEND Internal Medicine Infectious Disease
DX: I13.0 Hypertensive heart and chronic kidney disease with heart failure and stage 1 through stage 4 chronic kidney disease, or unspecified chronic kidney disease (principal); I50.31 Acute diastolic (congestive) heart failure; J96.01 Acute respiratory failure with hypoxia; I69.354 Hemiplegia and hemiparesis following cerebral infarction affecting left non-dominant side; N18.3 Chronic kidney disease, stage 3 (moderate); I25.10 Atherosclerotic heart disease of native coronary artery without angina pectoris; Z95.1 Presence of aortocoronary bypass graft; I25.2 Old myocardial infarction; E11.22 Type 2 diabetes mellitus with diabetic chronic kidney disease; E78.5 Hyperlipidemia, unspecified; J42 Unspecified chronic bronchitis; G83.81 Brown-Sequard syndrome; Z88.8 Allergy status to other drugs, medicaments and biological substances; Z79.899 Other long term (current) drug therapy; Z79.84 Long term (current) use of oral hypoglycemic drugs; Z79.82 Long term (current) use of aspirin; Z88.5 Allergy status to narcotic agent; Z88.1 Allergy status to other antibiotic agents
CPT/HCPCS: 36415; 36416; 71045; 80048; 83880; 85025; 93005; 93306; 93798; 93970; 94660; 96374; A4216; G8978-GP-CJ; G8979-GP-CJ; G8980-GP-CJ; J1644; J1940